=== PATIENT | female | born 1990 | race Caucasian/White ===

== ENCOUNTER 2023-02-21 11:22 | Outpatient (OUT) | payer BC, SELFPAY ==
[2023-02-22 06:08] LABS: HBsAg Screen Negative (Negative); HCV Ab Non Reactive (Non Reactive); HIV Ab/p24 Ag Screen Non Reactive (Non Reactive); Hep A Ab, IgM Negative (Negative); Hep B Core Ab, IgM Negative (Negative)
[2023-02-22 11:09] LABS: Rapid Plasma Reagin, Quant Non Reactive titer (NonRea<1:1)
== END 2023-02-21 11:23 | disposition home or self-care (01) ==
LOC: LAB 11:28
PROVIDERS: PCP Internal Medicine; Visit Provider Obstetrics & Gynecology
DX: Z01.42 Encounter for cervical smear to confirm findings of recent normal smear following initial abnormal smear (principal); R87.612 Low grade squamous intraepithelial lesion on cytologic smear of cervix (LGSIL); N94.9 Unspecified condition associated with female genital organs and menstrual cycle; R10.2 Pelvic and perineal pain; B00.9 Herpesviral infection, unspecified
CPT/HCPCS: 36415; 80074; 86592; 87389; 87624; G0145

== ENCOUNTER 2023-02-21 20:46 | Outpatient (REF) | payer BC, SELFPAY ==
[2023-02-25 16:11] LABS: Age Gdln ACOG Testing Note (.); HPV Aptima Positive (Negative); IGP, Aptima HPV, rfx 16/18,45 Note (.)
== END 2023-02-21 20:47 | disposition home or self-care (01) ==
LOC: LAB 20:46
PROVIDERS: PCP Internal Medicine; Visit Provider Obstetrics & Gynecology
DX: Z01.42 Encounter for cervical smear to confirm findings of recent normal smear following initial abnormal smear (principal); R87.612 Low grade squamous intraepithelial lesion on cytologic smear of cervix (LGSIL)
CPT/HCPCS: 87624; G0145

== ENCOUNTER 2023-11-22 18:55 | Outpatient (REF) | payer OTHER, SELFPAY ==
--- OUTSIDE RECORDS SUMMARY | 2023-11-22 19:00 | XMS_ITS | CCD ---
Author Organization [facility] Care Team Providers Care Trommel Tender Name Role Phone REQUEST, DR NONE LISTED Primary Care Unavaila ble LISA ., DR BRIONES Attending Unavailable LISA ., DR BRIONES Consulting Unavailable LISA ., DR BRIONES Admitting Unavailable ANALI GONZALEZ Attending Unavailable RAKESH SHEPHERD Primary Care Unavailabl e Problems Problem Classification Problem Date Documented Da te Episodic/Chronic Fever of unknown origin (1 source) Fever Onset: 06-15-2023 Episodic Influenza (1 source) Influenza due to other identified influenza virus with other respiratory manifestations; Translations: [Influenza due to other identified influenza virus with other respiratory manifestations] Onset: 06-15-2023 Episodic Other ear and sense organ disorders (1 source) Unspecified acute noninfective otitis externa, bilateral; Translations: [Unspecified acute noninfective otitis externa, bilateral] Onset: 06-15-2023 Episodic Other screening for suspected conditions (not mental disorders or infectious disease) (4 sources) Encounter for screening for malignant neoplasm of cervix; Translations: [ENC SCREENING MALIG NEOPLASM CERV] Onset: 07-21-2022 Episodic Unclassified (1 source) Cold Like Symptoms Onset: 06-15-2023 Unclassified (1 source) Earache; Fever; Vomiting Onset: 06-15-2023 Results Test Name Value Interpretation Reference Range Facility SARS/FLU A+B/RSV by NAAT/Mol ecularon 06-15-2023 SARS/FLU A+B/RSV by NAAT/Molecular FLU A PCR Positive (qualifier value) FLU B PCR Negative (qualifier value) RSV by PCR Negative (qualifier value) SARS CoV 2 Not detected (qualifier value) NOTE The Xpert Xpress SARS-CoV-2/Flu/RSV Plus test is a rapid, multiplexed real-time RT-PCR test intended for the simultaneous qualitative detection and differentiation of SARS-CoV-2, influenza A, influenza B and respiratory syncytial virus (RSV) viral RNA from individuals suspected of respiratory viral infection consistent with COVID-19 by their healthcare provider. This test has not been validated in asymptomatic patients. The Xpert Xpress SARS-CoV-2 test is intended for use by qualified and trained operators who are performing tests using either [employer] or [employer] systems and is limited to laboratories that meet the CLIA requirements to perform high and moderate complexity tests. The Xpert Xpress SARS-CoV-2/Flu/RSV Plus is only for use under the Food and Drug Administration's Emergency Use Authorization. Results are for the simultaneous detection and differentiation of SARS-CoV-2, influenza A, influenza B and RSV nucleic acids in clinical specimens. SARS-CoV-2, influenza A, influenza B and RSV RNA identified by this test are generally detectable in upper respiratory samples during the acute phase of infection. Positive results are indicative of the presence of the identified virus, but do not rule out bacterial infection or co-infection with other pathogens not detected by this test. Clinical correlation with patient history and other diagnostic information is necessary to determine patient infection status. The agent detected may not be the definite cause of disease. Negative results do not preclude SARS-CoV-2, influenza A, influenza B and RSV infection and should not be used as the sole basis for treatment or other patient management decisions. Negative results must be combined with clinical observations, patient history and epidemiological information. An Invalid result may occur with specimen-associated inhibition unable to be resolved with specimen repeat. Fact Sheet for Healthcare Providers: https://www.fda.gov/me brett/617506/download Fact Sheet for Patients: https://www.fda.gov/me brett/948919/download Normal [facility] Comment on above: Performed By: #### C OVFLR #### [facility] ([id number]) [address] [place] [address], [place] [address] PAP ACOG PANEL 2: 30 to 65on 07-29-2022 . . Normal [facility] Comment on above: Result Comment: Perf ormed at: WB Performed By: #### [id number] #### [facility] [address] [place] [address] Dr. Earlene Damian Age Gdln ACOG Testing 30-65 [facility] Comment on above: Performed By: #### [id number] #### [facility] [address] [address] [address] Earlene Damian DIAGNOSIS: Comment Abnormal [facility] Comment on above: Result Comment: EPIT HELIAL CELL ABNORMALITY. LOW GRADE SQUAMOUS INTRAEPITHELIAL LESION (LSIL). Performed at: WB Performed By: #### [id number] #### [facility] [address] [address] [address] Earlene Damian Electronically signed by: Comment Normal [facility] Comment on above: Result Comment: Eloina Armstrong MD, Pathologist Performed at: WB Performed By: #### [id number] #### [facility] [address] [address] [address] Earlene Damian HPV Aptima Positive Abnormal Negative [facility] Comment on above: Result Comment: This nucleic acid amplification test detects fourteen high-risk HPV types (16,18,31,33,35,39,45,51,52,56,58,59,66,68) without differentiation. Performed at: =G Performed By: #### [id number] #### [facility] [address] [place] [address] Dr. Earlene Damian HPV Genotype Reflex Comment Normal [facility] Comment on above: Result Comment: Crit eria not met, HPV Genotype not performed. Performed at: WB Performed By: #### [id number] #### [facility] [address] [address] [address] Earlene Damian Methodology: Comment Normal [facility] Comment on above: Result Comment: This liquid based ThinPrep(R) pap test was screened with the use of an image guided system. Performed at: WB Performed By: #### [id number] #### [facility] [address] [address] [address] Earlene Damian Note: Comment Normal [facility] Comment on above: Result Comment: The Pap smear is a screening test designed to aid in the detection of premalignant and malignant conditions of the uterine cervix. It is not a diagnostic procedure and should not be used as the sole means of detecting cervical cancer. Both false-positive and false-negative reports do occur. . Performed at: WB Performed By: #### [id number] #### [facility] [address] [address] [address] Earlene Damian Pathologist Provided ICD10 Comment Normal [facility] Comment on above: Result Comment: [id number] Performed at: WB Performed By: #### [id number] #### [facility] [id number] Earlene Damian Performed by: Comment Normal [facility] Comment on above: Result Comment: Zach Fong Underwriting Director (ASCP) Performed at: WB Performed By: #### [id number] #### [facility] [address] [address] [address] Earlene Damian Recommendation: Comment Abnormal [facility] Comment on above: Result Comment: Sugg est follow up as clinically appropriate. Performed at: WB Performed By: #### [id number] #### [facility] [address] [address] [address] Earlene Damian Specimen adequacy: Comment Normal [facility] Comment on above: Result Comment: Sati sfactory for evaluation. Endocervical and/or squamous metaplastic cells (endocervical component) are present. Performed at: WB Performed By: #### [id number] #### [facility] [address] [address] [address] Earlene Damian Encounters Encounter Date Encounter Type Care Provider Facility Start: 06-15-2023 End: 06-15-2023 Emergency department patient visit RAKESH SHEPHERD [facility] Start: 02-21-2023 End: 02-21-2023 ambulatory ANALI GONZALEZ Not Available Start: 07-21-2022 End: 07-21-[address] NONE LISTED REQUEST Facility: Payers Date Payer Category Payer Unknown [id number] 1990 Unknown [id number] 1990 Unknown [id number] 1958 Unknown [id number] 1958 Unknown [id number] Private Health Insurance [id number] Summary Purpose Family History No Family History Records FoundNo Family History Records FoundNo Family History Records Found Advance Directives No Advanced Directives Records FoundNo Advanced Directives Records FoundNo Advanced Directives Records Found Additional Source Comments INFORMATION SOURCE (unrecogn ized section and content) DATE CREATED AUTHOR 08/25/2022 [facility] DATE CREATED AUTHOR AUTHOR'S ORGANIZ ATION 02/21/2023 [facility] EPIC DATE CREATED AUTHOR AUTHOR'S ORGANIZ ATION 06/16/2023 [facility] FOR RECORDS PERTAINING TO PATIENTS WHO ARE OR HAVE BEEN ENROLLED IN A CHEMICAL DEPENDENCY/SUBSTANCEABUSE PROGRAM, SOME INFORMATION MAY BE OMITTED. This clinical summary was aggregated from multiple sources. Caution should be exercised in using it in the provision of clinical care. This summary normalizes information from multiple sources, and as a consequence, information in this document may materially change the coding, format and clinical context of patient data. In addition, data may be omitted in some cases. CLINICAL DECISIONS SHOULD BE BASED ON THE PRIMARY CLINICAL RECORDS. [employer] provides no warranty or guarantee of the accuracy or completeness of information in this document.
== END 2023-11-22 18:56 | disposition home or self-care (01) ==
LOC: LAB 18:55
PROVIDERS: PCP Internal Medicine; Visit Provider Obstetrics & Gynecology
DX: Z01.419 Encounter for gynecological examination (general) (routine) without abnormal findings (principal)
CPT/HCPCS: 87624; 88175

== ENCOUNTER 2024-01-23 16:38 | Outpatient (OUT) | payer OTHER, SELFPAY ==
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
[2024-01-23 17:59] LABS: HCG Quantitative 1276 mIU/mL
== END 2024-01-23 16:39 | disposition home or self-care (01) ==
LOC: LAB 16:40
PROVIDERS: PCP Internal Medicine; Visit Provider Obstetrics & Gynecology
DX: N92.6 Irregular menstruation, unspecified (principal)
CPT/HCPCS: 36415; 84702

== ENCOUNTER 2024-01-25 16:39 | Outpatient (OUT) | payer OTHER, SELFPAY ==
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
[2024-01-25 17:52] LABS: HCG Quantitative 1395 mIU/mL
== END 2024-01-25 16:40 | disposition home or self-care (01) ==
PROVIDERS: PCP Internal Medicine; Visit Provider Obstetrics & Gynecology
DX: N92.6 Irregular menstruation, unspecified (principal)
CPT/HCPCS: 36415; 84702

== ENCOUNTER 2024-01-27 16:07 | Outpatient (OUT) | payer OTHER, SELFPAY ==
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
[2024-01-27 17:08] LABS: HCG Quantitative 1255 mIU/mL
== END 2024-01-27 16:08 | disposition home or self-care (01) ==
LOC: LAB 16:08
PROVIDERS: PCP Internal Medicine; Visit Provider Obstetrics & Gynecology
DX: N92.6 Irregular menstruation, unspecified (principal)
CPT/HCPCS: 36415; 84702

== ENCOUNTER 2024-02-02 13:33 | Outpatient (OUT) | payer OTHER, SELFPAY ==
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
[2024-02-02 14:41] LABS: HCG Quantitative 381 mIU/mL
== END 2024-02-02 13:34 | disposition home or self-care (01) ==
LOC: LAB 13:36
PROVIDERS: PCP Internal Medicine; Visit Provider Obstetrics & Gynecology
DX: N92.6 Irregular menstruation, unspecified (principal)
CPT/HCPCS: 36415; 84702

== ENCOUNTER 2024-02-22 13:17 | Outpatient (RCR) | payer SELFPAY ==
[2024-02-22 14:02] LABS: HCG Quantitative 6 mIU/mL
== END 2024-04-10 23:59 | disposition home or self-care (01) ==
LOC: LAB 13:17
PROVIDERS: PCP Internal Medicine; Visit Provider Obstetrics & Gynecology
DX: N92.6 Irregular menstruation, unspecified (principal)
CPT/HCPCS: 36415; 84702

== ENCOUNTER 2024-05-14 16:34 | Outpatient (RCR) | payer OTHER, SELFPAY ==
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
[2024-05-14 17:39] LABS: HCG Quantitative 15487 mIU/mL
== END 2024-06-08 16:58 | disposition home or self-care (01) ==
LOC: LAB 16:34
PROVIDERS: PCP Internal Medicine; Visit Provider Obstetrics & Gynecology
DX: N92.6 Irregular menstruation, unspecified (principal)
CPT/HCPCS: 36415; 84702

== ENCOUNTER 2024-05-30 21:59 | Outpatient (REF) | payer OTHER, SELFPAY ==
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
== END 2024-05-30 22:00 | disposition home or self-care (01) ==
LOC: LAB 21:59
PROVIDERS: PCP Internal Medicine; Visit Provider Obstetrics & Gynecology
DX: R87.612 Low grade squamous intraepithelial lesion on cytologic smear of cervix (LGSIL) (principal); R87.619 Unspecified abnormal cytological findings in specimens from cervix uteri
CPT/HCPCS: 87624; 88175

== ENCOUNTER 2024-05-31 11:35 | Outpatient (OUT) | payer OTHER, SELFPAY ==
--- NOTE | 2024-05-31 11:37 | US_ITS ---
The [address] [address] Patient Name: POOJA VALENCIA MRN: [id number] date: 1990 Sex: F Assigned Patient Location: US Current Patient Location: US Accession/Order Number: [id number] Exam Date: 05/31/2024 14:04 Report Date: 05/31/2024 14:09 At the request of: ANALI GONZALEZ DO Procedure: US OB transvaginal TRANSVAGINAL FIRST TRIMESTER OB ULTRASOUND CLINICAL DATA: Missed menses COMPARISON: none Transvaginal imaging was performed. A gestational sac is visualized within the uterus. There is a yolk sac and pole. The crown-rump length measurement of 2.0 cm correlates with an ultrasound age of 8 weeks 4 days. The estimated date of delivery is 01/06/2025. There is cardiac activity with heart rate of 175 bpm. The estimated cervical length is 5.1 cm. Both ovaries are visualized. The right measures 2.7 x 1.2 x 1.8 cm in size. The left ovary measures 4.5 x 2.8 x 2.7 cm. The left ovary contains a cyst measuring 2.9 x 2.2 x 2.2 cm in size. This may be the corpus luteum. There is documentation of ovarian blood flow. No free fluid is noted. US/US OB transvaginal IMPRESSION: SINGLE LIVE INTRAUTERINE GESTATION WITH ULTRASOUND AGE OF 8 WEEKS 4 DAYS. Impression dictated by: Mckenzie Alvarez M.D.05/31/2024 2:09 PM Dictation Location: [facility] Electronically authenticated by: [id number] Y Date: 05/31/2024 14:09
--- OUTSIDE RECORDS SUMMARY | 2024-05-31 11:51 | XMS_ITS | CCD ---
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 [facility] DATE CREATED AUTHOR AUTHOR'S ORGANIZ ATION 06/16/2023 [facility] DATE CREATED AUTHOR AUTHOR'S ORGANIZ ATION 11/24/2023 [facility] DATE CREATED AUTHOR AUTHOR'S ORGANIZ ATION 01/22/2024 [facility] Reason for Visit (unrecogniz ed section and [...] Care Teams (unrecognized sec tion and content) 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 [employer] [facility]. provides no warranty or guarantee of the accuracy or completeness of information in this document.
== END 2024-05-31 11:36 | disposition home or self-care (01) ==
LOC: US 11:35
PROVIDERS: PCP Internal Medicine; Visit Provider Obstetrics & Gynecology
DX: Z34.01 Encounter for supervision of normal first pregnancy, first trimester (principal); Z3A.08 8 weeks gestation of pregnancy; N92.6 Irregular menstruation, unspecified
CPT/HCPCS: 76817

== ENCOUNTER 2024-06-12 13:21 | Outpatient (OUT) | payer OTHER, SELFPAY ==
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
[2024-06-12 13:55] LABS: BOX Test Reference Lab UNITY; BOX Test Sent Out UNITY
[2024-06-12 13:56] LABS: Basophils Percent Auto 0.4 % (0.2-2.0); Eosinophils Absolute Auto 0.1 10^3/uL (0.0-0.7); Eosinophils Percent Auto 0.9 % (0.9-7.0); Hematocrit 34.1 % (36.0-48.0); Hemoglobin 11.9 g/dL (12.0-16.0); Immature Granulocytes Abs Auto 0.02 10^3/uL (0.00-0.03); Immature Granulocytes Pct Auto 0.2 % (0.0-0.5); Lymphocytes Percent Auto 24.4 % (20.5-60.0); Mean Corpuscular HGB Conc 34.9 g/dL (29.9-35.2); Mean Corpuscular Hemoglobin 32.1 pg (26.7-34.0); Mean Corpuscular Volume 91.9 fL (81.0-99.0); Mean Platelet Volume 10.4 fL (9.5-13.5); Monocytes Absolute Auto 0.7 10^3/uL (0.3-0.8); Monocytes Percent Auto 8.1 % (1.7-12.0); Neutrophils Absolute Auto 5.4 10^3/uL (1.4-6.5); Platelet Count 249 10^3/uL (150-450); Red Blood Count 3.71 10^6/uL (4.20-5.40); Red Cell Distribution Width 11.7 % (11.0-15.0); White Blood Count 8.2 10^3/uL (4.0-11.0)
[2024-06-12 14:12] LABS: Amphetamine Screen Urine NEGATIVE (NEGATIVE); Barbiturates Screen Urine NEGATIVE (NEGATIVE); Benzodiazepines Screen Urine NEGATIVE (NEGATIVE); Buprenorphine Screen Urine NEGATIVE (NEGATIVE); Cannabinoid Screen Urine NEGATIVE (NEGATIVE); Cocaine Screen Urine NEGATIVE (NEGATIVE); Methadone Screen Urine NEGATIVE (NEGATIVE); Methamphetamines Screen Urine NEGATIVE (NEGATIVE); Opiate Screen Urine NEGATIVE (NEGATIVE); Oxycodone Screen Urine NEGATIVE (NEGATIVE); Phencyclidine Screen Urine NEGATIVE (NEGATIVE); Tricyclic Antidepressant Urine NEGATIVE (NEGATIVE)
[2024-06-12 14:20] LABS: Estimated Average Glucose 103 mg/dL; Glycohemoglobin A1C 5.2 % (4.5-6.2)
[2024-06-13 06:08] LABS: HBsAg Screen Negative (Negative); HCV Ab Non Reactive (Non Reactive); HIV Ab/p24 Ag Screen Non Reactive (Non Reactive); Rubella Antibodies, IgG 1.51 index (Immune >0.99)
[2024-06-13 12:09] LABS: Rapid Plasma Reagin, Quant Non Reactive titer (NonRea<1:1)
== END 2024-06-12 13:22 | disposition home or self-care (01) ==
LOC: LAB 13:22
PROVIDERS: PCP Internal Medicine; Visit Provider Obstetrics & Gynecology
DX: Z32.01 Encounter for pregnancy test, result positive (principal); Z36.0 Encounter for antenatal screening for chromosomal anomalies; N92.6 Irregular menstruation, unspecified
CPT/HCPCS: 36415; 80307; 83036; 85025; 86592; 86762; 86803; 86850; 86900; 86901; 87086; 87340; 87389

== ENCOUNTER 2024-10-23 16:38 | Observation (INO) | payer OTHER, SELFPAY ==
[2024-10-23 17:08] VITALS: BP 111/59; PULSE 95; TEMP 36.6
[2024-10-23 18:04] LABS: Glucose Urine UA NEGATIVE (NEGATIVE)
[2024-10-23 18:24] LABS: Cast Seen? NONE SEEN #/LPF (NONE SEEN); Crystals Seen? None Seen #/HPF (None Seen); Urine Culture Indicated NO
--- NOTE | 2024-10-23 18:50 | US_ITS ---
[place] [id number] Patient Name: POOJA VALENCIA MRN: [id number] date: 1990 Sex: F Assigned Patient Location: [facility] Current Patient Location: [facility] Accession/Order Number: [id number] Exam Date: 10/23/2024 20:48 Report Date: 10/23/2024 20:53 At the request of: ANALI GONZALEZ DO Procedure: US OB cervical length US OB cervical length 10/23/2024 8:31 PM SIGNS AND SYMPTOMS: contractions COMPARISON: None. TECHNIQUE: Transabdominal and transvaginal pelvic ultrasound. FINDINGS: An early intrauterine is identified. The fetus has an estimated gestational age of 29 weeks and 2 days A heart rate is identified at 153 bpm. A a subjectively normal amount of amniotic fluid is present. There is no evidence for placenta previa or subchorionic hemorrhage. Pelvic survey reveals no gross abnormalities. The cervix measures 3.9 cm in length. The cervical os is closed. US/US OB cervical length IMPRESSION: Single live IUP with an estimated gestational age of 29 weeks and 2 days with a normal heart rate. The cervix measures 3.9 cm in length. The cervical os is closed. Impression dictated by: Choco Ruiz M.D. 10/23/2024 8:53 PM Dictation Location: [employer] Electronically authenticated by: [id number] Y Date: 10/23/2024 20:53
[2024-10-23 19:13] LABS: Hematocrit 29.9 % (36.0-48.0); Hemoglobin 10.2 g/dL (12.0-16.0); Immature Granulocytes Abs Auto 0.08 10^3/uL (0.00-0.03); Immature Granulocytes Pct Auto 0.5 % (0.0-0.5); Lymphocytes Absolute Auto 2.2 10^3/uL (1.2-3.8); Mean Corpuscular HGB Conc 34.1 g/dL (29.9-35.2); Mean Corpuscular Hemoglobin 31.7 pg (26.7-34.0); Mean Corpuscular Volume 92.9 fL (81.0-99.0); Platelet Count 271 10^3/uL (150-450); Red Blood Count 3.22 10^6/uL (4.20-5.40); White Blood Count 14.6 10^3/uL (4.0-11.0)
[2024-10-23 19:27] LABS: Alanine Aminotransferase 16 U/L (14-59); Albumin Globulin Ratio 0.5; Albumin Level 2.2 g/dL (3.4-5.0); Alkaline Phosphatase 81 U/L (46-116); Anion Gap 12.8; Aspartate Amino Transferase 26 U/L (15-37); Blood Urea Nitrogen 5.0 mg/dL (7.0-18.0); Calcium 8.5 mg/dL (8.5-10.1); Carbon Dioxide 22.5 mmol/L (21.0-32.0); Chloride 105 mmol/L (98-107); Estimated GFR (African America >60 (>=60 mL/min/1.73m^2); Estimated GFR (Non-African Ame >60 (>=60 mL/min/1.73m^2); Globulin 4.5 g/dL; Glucose 86 mg/dL (74-106); Potassium 4.3 mmol/L (3.5-5.1); Sodium 136 mmol/L (136-145); Total Protein 6.7 g/dL (6.4-8.2)
[2024-10-23] MEDS: 0.9 % SODIUM CHLORIDE 1,000 ML 250 ML IV (19:30)
== END 2024-10-23 21:25 | disposition home or self-care (01) ==
PROVIDERS: Admitting Provider Obstetrics & Gynecology; PCP Internal Medicine; Visit Provider Obstetrics & Gynecology
DX: O26.893 Other specified pregnancy related conditions, third trimester (principal); R10.9 Unspecified abdominal pain; Z3A.29 29 weeks gestation of pregnancy
CPT/HCPCS: 36415; 59025; 76817; 80053; 81001; 85025; G0378; G0379

== ENCOUNTER 2024-12-05 07:49 | Outpatient (OUT) | payer OTHER, SELFPAY ==
--- OUTSIDE RECORDS SUMMARY | 2024-01-16 06:45 | XMS_ITS ---
Author Organization [facility] Address [address] [place] [id number] Care Team Providers Care Shear Scrapman Name Role Phone Osmel Salima Unavailable [phone] REASON FOR VISIT Periodic Exam Medications Medication SIG (Take, Route, Frequency, Duration) Notes Start Date End Date Status ZyrTEC Active Chlorhexidine Gluconate 0.12 % 15 mL swish for 30 seconds, then spit. Do not swallow. Mouth/Throat Twice a day; Duration: 30 days 11/01/2023 Active Citalopram Hydrobromide 10 MG Oral; Duration: 30 Active Ibuprofen 800 MG 1 tablet with food o r milk as needed Orally every 8 hrs; Duration: 5 days 11/01/2023 Active Amoxicillin 875 MG 1 tablet Orally Twic e a day; Duration: 7 days 11/01/2023 Active Adipex-P Not-Taking Social History Sex Assigned At : Social History Observation Description Sex Assigned At Female Encounters Encounter Location Date Provider Diagnosis [facility] [address], [place] [id number] 01/16/2024 Salima Bolivar Plan Of Treatment No Information Progress Notes * Susy BETHDOB:[birth year] (33 yo F)Acc No.[id number]:01/16/2024 Patient: Susy VÁZQUEZ Provider: Laverne Bolivar DMD :1990 A ge:33 Y S ex:Female Date:01/16/2024 Address:[address], [id number] Subjective: * Chief Complaints: * 1 . Periodic Exam. * Medical History: * Medications: T donald GuillenyrTEC , Taking Citalopram Hydrobromide 10 MG Tablet Oral , Taking Chlorhexidine Gluconate 0.12 % Solution 15 mL swish for 30 seconds, then spit. Do not swallow. Mouth/Throat Twice a day , Taking Amoxicillin 875 MG Tablet 1 tablet Orally Twice a day , Taking Ibuprofen 800 MG Tablet 1 tablet with food or milk as needed Orally every 8 hrs , Not-Taking/PRN Adipex-P Objective: * Vitals: Assessment: Plan: * Treatment: * Billing Information: * Visit Code: * Procedure Codes: * Electronic signature of Simona Bolivar DMD on 12/05/2024 at 07:52 AM EDT Sign off status: Pending * Provider: Laverne Bolivar DMD Date: Generated for Radha nguyen/Lilli/Terra on: 0 12/05/2024 07:52 AM EDT
--- OUTSIDE RECORDS SUMMARY | 2024-12-05 07:52 | XMS_ITS | Encounter Summary ---
Author Organization [facility] Address [address] [place] [address] Care Team Providers Care Biomass Plant Technician Name Role Phone Kyleigh Kathleen MD Primary Care Provider [phone]- [phone] Encounter Details Date Type Department Care Team (Late st Contact Info) Description 06/12/2024 Abstract [facility] [address] [place] [address] Jordan Sales DO [address] [place] [address] Social History Tobacco Use Types Packs/Day Years Used Date Smoking Tobacco: Never Smokeless Tobacco: Never Alcohol Use Standard Drinks/Week Comments Never 0 (1 standard drink = 0.6 oz pur e alcohol) Estimated Date of Delivery Comme nts Yes 01/06/2025 Based on Ultraso und Sex and Gender Information Value Date Recorded Sex Assigned at Female 09/13/2022 11:35 AM EDT Legal Sex Female 11:47 PM EDT Gender Identity Female 09/13/2022 11:35 AM EDT Sexual Orientation Straight 09/13/2022 11 :35 AM EDT documented as of this encounter Plan of Treatment Upcoming Encounters Date Type Department Care Team (Late st Contact Info) Description 12/05/2024 10:00 AM EDT Ancillary Procedure [facility] [address] [place] [phone] 12/05/2024 11:00 AM EDT Routine [place] [address] Jordan Sales, [address] [place] [address] documented as of this encounter Goals Goal Patient Goal Type Associated Problems Recent Progress Patient-Stated? Author Reminders Care Plan OB Reminders No Open Scheduling, Background documented as of this encounter Visit Diagnoses Not on filedocumented in this encounter Additional Health Concerns Active Problems Noted Date Diagnosed Date OB Reminders 06/10/2024 documented as of this encounter Care Teams Biomass Plant Technician Relationship Specialty Start Date End Date Kyleigh Kathleen MD [address] [place] [phone] PCP - General Internal Medicine 02/21/23 documented as of this encounter
--- OUTSIDE RECORDS SUMMARY | 2024-12-05 07:52 | XMS_ITS | Encounter Summary ---
Author Organization [facility] Address [address] [place] [address] Care Team Providers Care Granite Cutter Name Role Phone Kyleigh Kathleen MD Primary Care Provider [phone]- [phone] Encounter Details Date Type Department Care Team (Late st Contact Info) Description 09/26/2024 Abstract [facility] [address] [place] [address] Jordan Sales DO [address] [place] [address] Social History Tobacco Use Types Packs/Day Years [...] Ancillary Procedure [facility] [address] [place] [phone] 12/05/2024 11:00 AM EDT Routine [place] [address] Jordan Sales, [address] [facility] [address] documented as of this encounter Goals Goal Patient Goal Type Associated Problems Recent Progress Patient-Stated? Author Reminders Care Plan OB Reminders No Open Scheduling, Background documented as of this encounter Visit Diagnoses Not on filedocumented in this encounter Additional Health Concerns Active Problems Noted Date Diagnosed Date OB Reminders 06/10/2024 documented as of this encounter Care Teams Granite Cutter Relationship Specialty Start Date End Date Kyleigh Kathleen MD [address] [place] [phone] PCP - General Internal Medicine 02/21/23 documented as of this encounter
--- OUTSIDE RECORDS SUMMARY | 2024-12-05 07:52 | XMS_ITS | Clinical Summary ---
Author Organization [facility] Address [address] [place] [address] Care Team Providers Care Co Teacher Name Role Phone Rakesh Shepherd MD Primary Care Provider [phone] Allergies No known active allergies Medications citalopram (CeleXA) 10 MG tablet Take 20 mg by mouth in the morning. Active citalopram (CeleXA) 10 MG tablet Take 20 mg by mouth in the morning. Active cetirizine-pseud oephedrine (ZyrTEC-D) 5-120 MG 12 hr tablet Take 1 tablet every 12 hours by oral route as directed for 30 days. Active metFORMIN XR (Glucophage-XR) 500 MG 24 hr tabletIndication s:Insulin resistance Take 1 tablet (500 mg) by mouth in the evening. Take with meals Do not crush, chew, or split. 30 tablet 11 4 Active citalopram (CeleXA) 20 MG tabletIndication s:Anxiety, generalized TAKE 1 TABLET BY MOUTH DAILY 90 tablet 6 4 Active citalopram (CeleXA) 10 MG tabletIndication s:Anxiety, generalized TAKE 1 TABLET BY MOUTH DAILY 90 tablet 6 4 Active omeprazole (PriLOSEC) [address] capsuleIndicatio ns:Gastroesophag eal Reflux Disease,Heartbur n Take 1 capsule (20 mg) by mouth in the morning. Take before meals. Do not crush or chew.. 30 capsule 3 5 Active Active Problems Problem Noted Date Diagnosed Date H/O premature delivery 10/17/2024 20 weeks gestation of ([facility]) 2024 LGSIL of cervix of undetermined significance Abnormal glandular Papanicolaou smear of cervix 05/30/2024 Estimated Date of Delivery Comme nts Yes 01/06/2025 Based on Ultraso und Encounters Date Type Department Care Team Description 11/20/2024 2:30 [place] [address] Milka Long PA Size of fetus inconsistent with dates in third trimester ([facility]) (Primary Dx); Third trimester ([facility]); 33 weeks gestation of ([facility]); H/O premature delivery; Vapes nicotine containing substance; Diabetes mellitus screening 11/20/2024 [place] [address] Milka Long PA 11/20/2024 Travel 11/06/2024 11:00 [place] [address] Anali Sales, Third trimester ([facility]); 31 weeks gestation of ([facility]) 11/06/2024 [place] [address] Anali Sales, 11/06/2024 Travel 10/23/2024 Clinisync Result Encounter [facility] External Department Unsolicited Anali Sales, 10/23/2024 Clinisync Result Encounter [facility]OMS External Department Unsolicited Anali Sales, 10/18/20[place] [address] Stephanie Joseph MA 10/17/2024 2:20 [place] [address] Anali Sales, DO Third trimester ([facility]); Screening examination for STI; 28 weeks gestation of ([facility]); H/O premature delivery 10/17/2024 External Result Encounter [facility]OM[facility] External Department Unsolicited Anali Sales, DO 10/17/2024 Bamboo flowsheet [facility] [address] [place] [address] Anali Sales, DO 10/17/2024 Travel 09/26/2024 Abstract [facility] [address] [facility] [place] [phone] Anali Sales, DO 09/21/2024 Telephone [facility] [place] [phone] Neeru Lopez LPN 09/20/2024 3:20 PM EDT Routine [facility] [place] [phone] Milka Long PA Second trimester ([facility]); 24 weeks gestation of ([facility]); Diabetes mellitus screening 09/20/2024 Bamboo flowsheet [facility] [address] [facility] [place] [phone] Milka Long PA 09/20/2024 Travel from Last 3 Months Social History Tobacco Use Types Packs/Day Years Used Date Smoking Tobacco: Never Smokeless Tobacco: Never Tobacco Cessation:Counseling Given: Not Answered Alcohol Use Standard Drinks/Week Comments Never 0 [...] Orientation Straight 09/13/2022 11 :35 AM EDT Last Filed Vital Signs Vital Sign Reading Time Taken Comments Blood Pressure 118/72 11/20/2024 2:47 PM EDT Pulse - - Temperature - - Respiratory Rate - - Oxygen Saturation - - Inhaled Oxygen Concentration - - Weight 88.5 kg (195 lb) 11/20/2024 2:47 PM EDT Height 154.9 cm (5' 1 ) 11/22/2023 2:46 PM EDT Body Mass Index 36.84 11/22/2023 2:46 PM EDT Plan of Treatment Upcoming Encounters Date Type Department Care Team (Late st Contact Info) Description 12/05/2024 10:00 AM EDT Ancillary Procedure [facility] [address] [place] [phone] 12/05/2024 11:00 AM EDT Routine [facility] [address] [place] [phone] Anali Sales, [address] [place] [address] Health Maintenance Due Date Last Done Comments HPV/Cotest 12/30/2021 Influenza Vaccine (#1) 2024 Cervical Cancer Screening 05/30/2027 Pap Smear 05/30/2027 05/30/2024, 11/22/2023, 02/09 Goals Goal Patient Goal Type Associated Problems Recent Progress Patient-Stated? Author Reminders Care Plan OB Reminders No Open Scheduling, Background Procedures Procedure Name Priority Date/Time Associated Diagnosis Comments POCT URINALYSIS DIPSTICK Routine 11/20/2024 2:57 PM EDT Third trimester ([facility]) POCT URINALYSIS DIPSTICK Routine 11/06/2024 11:50 AM EDT Third trimester ([facility]) US OB CERVICAL LENGTH 10/23/2024 8:53 PM EDT [facility] CMP (CMP) (FOR REMOTE [facility] USE) Routine 10/23/2024 7:04 PM EDT ALL CBC WITH AUTO DIFF Routine 10/23/2024 7:04 PM EDT TB[facility] URINE MICROSCOPIC ONLY Routine 10/23/2024 5:20 PM EDT TBH UA (CLEAN/CATCH) TAPER AND FLOATER/MICRO IF IND. Routine 10/23/2024 5:20 PM EDT RECURRENT VAGINITIS (HTRX) Routine 10/17/2024 3:54 PM EDT POCT URINALYSIS DIPSTICK Routine 10/17/2024 3:14 PM EDT Third trimester ([facility]) POCT URINALYSIS DIPSTICK Routine 09/20/2024 4:07 PM EDT Second trimester ([facility]) PAP SMEAR Routine 05/30/2024 12:00 AM EST from Last 3 Months or Most Recently Relevant to Health Maintenance Results * POCT urinalysis dipstick manually resulted (11/20/2024 2:57 PM EDT) Only the most recent of4 resultswithin the time period is included. Color, UA Yellow Clarity, UA Clear Glucose, UA Negative Negative - 2000(110) ++++ mg/dL Bilirubin, UA Negative Negative - 4(70) +++ mg/dL Ketones, UA Negative Negative - 160(16) ++++ mg/dL Spec Grav, UA 1.020 1 - 1.03 Blood, UA Negative Negative - 50 Fahad/mcL pH, UA 7.0 5 - 9 Protein, UA Negative Negative - 2000(20) ++++ mg/dL Urobilinogen, UA 1.0 0.2 - 12 mg/dL Leukocytes, UA Negative Negative - 500+++ Carlos/mcL Nitrite, UA Negative Negative - Positive Urine 11/20/2024 2:57 PM EDT us Milka FIELDS POINT OF CARE TEST ENTER/EDIT OR DERABLES Final Result * US OB CERVICAL LENGTH (10/23/2024 8:53 PM EDT) Anatomical Region Laterality Modality Other 10/23/2024 8:53 PM EDT Narrative 10/23/2024 8:[place] [address] Ultrasound Report Signed Patient: POOJA BETH MR#: [id number] : 1990 Acct:[id number] Age/Sex: 33 / F ADM Date: Loc: [facility] 254-[address]: Anali Sales D.O. Ordering Physician: Anali Sales D.O. Date of Service: 10/23/24 Procedure(s): US OB cervical length Accession Number(s): [id number] cc: Anali Sales D.O.; RAKESH SHEPHERD [place] [address] Patient Name: POOJA BETH MRN: [id number] date: 1990 Sex: F Assigned Patient Location: [facility] Current Patient Location: [facility] Accession/Order Number: [id number] Exam Date: 10/23/2024 20:48 Report Date: 10/23/2024 20:53 At the request of: ANALI SALES DO Procedure: US OB cervical length US OB cervical length 10/23/2024 8:31 PM SIGNS AND SYMPTOMS: contractions COMPARISON: None. TECHNIQUE: Transabdominal and transvaginal pelvic ultrasound. FINDINGS: An early intrauterine is identified. The fetus has an estimated gestational age of 29 weeks and 2 days A heart rate is identified at 153 bpm. A a subjectively normal amount of amniotic fluid is present. There is no evidence for placenta previa or subchorionic hemorrhage. Pelvic survey reveals no gross abnormalities. The cervix measures 3.9 cm in length. The cervical os is closed. US/US OB cervical length IMPRESSION: Single live IUP with an estimated gestational age of 29 weeks and 2 days with a normal heart rate. The cervix measures 3.9 cm in length. The cervical os is closed. Impression dictated by: Choco Ruiz M.D. 10/23/2024 8:53 PM Dictation Location: [place] [address] Electronically authenticated by: [id number] Y Date: 10/23/2024 20:53 Dictated By: Choco Ruiz M.D. Signed By: 10/23/242055 DD/ 52 TD/TT: Bench Worker Helper: Procedure Note Radiology, Radiologist, MD - 10/23/2024 [place] [address] Ultrasound Report Signed Patient: POOJA BETH LMR#: [id number] : 1990Acct:[id number] Age/Sex: 33 / FADM Date: Loc: [facility] 254-[address]: Anali Sales D.O. Ordering Physician: Anali Sales D.O. Date of Service: 10/23/24 Procedure(s): US OB cervical length Accession Number(s): [id number] cc: Anali Sales D.O.; RAKESH SHEPHERD [place] [address] Patient Name: POOJA BETH MRN: [id number] date: 1990 Sex: F Assigned Patient Location: [facility] Current Patient Location: [facility] Accession/Order Number: [id number] Exam Date: 10/23/2024 20:48 Report Date: 10/23/2024 20:53 At the request of: ANALI SALES DO Procedure: US OB cervical length US OB cervical length 10/23/2024 8:31 PM SIGNS AND SYMPTOMS: contractions COMPARISON: None. TECHNIQUE: Transabdominal and transvaginal pelvic ultrasound. FINDINGS: An early intrauterine is identified. The fetus has an estimated gestational age of 29 weeks and 2 days A heart rate is identified at 153bpm. A a subjectively normal amount of amniotic fluid is present. There is no evidence for placenta previa or subchorionic hemorrhage. Pelvic survey reveals no gross abnormalities. The cervix measures 3.9 cmin length. The cervical os is closed. US/US OB cervical length IMPRESSION: Single live IUP with an estimated gestational age of 29 weeks and 2 dayswith a normal heart rate. The cervix measures 3.9 cm in length. The cervical os is closed. Impression dictated by: Choco Ruiz M.D. 10/23/2024 8:53 PM Dictation Location: [place] [address] Electronically authenticated by: [id number] Y Date: 0:53 Dictated By: Choco Ruiz M.D. Signed By:10/23/242055 DD/ 52 TD/TT: Bench Worker Helper: us Anali Mónica DO [facility] IMAG[facility] Final Result * (ABNORMAL) [facility] CMP (CMP) (FOR REMOTE [facility] USE) (10/23/2024 7:04 PM EDT) SODIUM 136 136 - 145 mmol/L TBH POTASSIUM 4.3 3.5 - 5.1 mmol/L TBH CHLORIDE 105 98 - 107 mmol/L TBH CARBON DIOXIDE 22.5 21.0 - 32.0 mmol/L TBH ANION GAP 12.8 TBH GLUCOSE 86 74 - 106 mg/dL TBH BLOOD UREA NITROGEN 5.0(L) 7.0 - 18.0 mg/dL TBH CREATININE 0.43(L) 0.55 - 1.02 mg/dL TBH TBH EGFR-AF BOTSWANAN >60 >=60 mL/min/1. 73m 2 TBH TBH EGFR-NON AF BOTSWANAN >60 >=60 mL/min/1. 73m 2 TBH BUN CREATININE RATIO 11.6 TBH CALCIUM 8.5 8.5 - 10.1 mg/dL TBH BILIRUBIN TOTAL 0.4 0.2 - 1.0 mg/dL TBH ASPARTATE AMINO TRANSFERASE 26 15 - 37 U/L TBH ALANINE AMINOTRANSFERASE 16 14 - 59 U/L TBH ALKALINE PHOSPHATASE 81 46 - 116 U/L TBH TOTAL PROTEIN 6.7 6.4 - 8.2 g/dL TBH ALBUMIN LEVEL 2.2(L) 3.4 - 5.0 g/dL TBH GLOBULIN 4.5 g/dL TBH ALBUMIN GLOBULIN RATIO 0.5 TBH 10/23/2024 7:04 PM EDT 10/23/2024 7:08 PM EDT Narrative [facility] - 10/23/2024 7:28 PM EDT Anali Sales DO [facility] Final Result [facility] TB * (ABNORMAL) ALL CBC WITH AUTO DIFF (10/23/2024 7:04 PM EDT) TBH WBC 14.6(H) 4.0 - 11.0 10 3/uL TBH TBH RBC 3.22(L) 4.20 - 5.40 10 6/uL TBH TBH HGB 10.2(L) 12.0 - 16.0 g/dL TBH TBH HCT 29.9(L) 36.0 - 48.0 % TBH TBH MCV 92.9 81.0 - 99.0 fL TBH TBH MCH 31.7 26.7 - 34.0 pg TBH TBH MCHC 34.1 29.9 - 35.2 g/dL TBH TBH RDW 12.5 11.0 - 15.0 % TBH TBH PLT 271 150 - 450 10 3/uL TBH TBH MPV 9.6 9.5 - 13.5 fL TBH NEUTROPHILS PERCENT AUTO 76.6(H) 43.0 - 75.0 % TBH LYMPHOCYTES PERCENT AUTO 15.1(L) 20.5 - 60.0 % TBH MONOCYTES PERCENT AUTO 7.3 1.7 - 12.0 % TBH TBH EO % 0.3(L) 0.9 - 7.0 % TBH BASOPHILS PERCENT AUTO 0.2 0.2 - 2.0 % TBH IMMATURE GRANULOCYTES PCT AUTO 0.5 0.0 - 0.5 % TBH NEUTROPHILS ABSOLUTE AUTO 11.1(H) 1.4 - 6.5 10 3/uL TBH LYMPHOCYTES ABSOLUTE AUTO 2.2 1.2 - 3.8 10 3/uL TBH MONOCYTES ABSOLUTE AUTO 1.1(H) 0.3 - 0.8 10 3/uL TBH TBH EO # 0.1 0.0 - 0.7 10 3/uL TBH BASOPHILS ABSOLUTE AUTO 0.0 0.0 - 0.1 10 3/uL TBH IMMATURE GRANULOCYTES ABS AUTO 0.08(H) 0.00 - 0.03 10 3/uL TBH 10/23/2024 7:04 PM EDT 10/23/2024 7:08 PM EDT Narrative [facility] - 10/23/2024 7:15 PM EDT Anali Mónica DO [facility] Final Result Performing Organization Address [facility] de Phone Number [facility] TBH * (ABNORMAL) TBH URINE MICROSCOPIC ONLY (10/23/2024 5:20 PM EDT) TBH WBC 0-2(A) NONE SEEN #/HPF TBH TBH RBC 0-2 0 - 2 #/HPF TBH BACTERIA URINE TRACE(A) NONE SEEN #/HPF TBH MUCUS URINE TRACE(A) NONE SEEN TBH SQUAMOUS EPITHELIAL CELL URINE MODERATE(A ) NONE/RARE #/LPF TBH CRYSTALS SEEN? None Seen None Seen #/HPF TBH CAST SEEN? NONE SEEN NONE SEEN #/LPF TBH URINE CULTURE INDICATED NO TBH 10/23/2024 5:20 PM EDT 10/23/2024 6:01 PM EDT Narrative [facility] - 10/23/2024 6:25 PM EDT Anali Mónica DO [facility]IN[facility] Final Result Performing Organization Address [facility] de Phone Number CLINISYNH TBH * (ABNORMAL) TBH UA (CLEAN/CATCH) TAPER AND FLOATER/MICRO IF IND. (10/23/2024 5:20 PM EDT) COLOR URINE LT. YELLOW YELLOW TBH CLARITY URINE CLEAR CLEAR TBH SPECIFIC GRAVITY URINE 1.015 1.005 - 1.025 TBH PH URINE 7.5 5.0 - 9.0 TBH PROTEIN URINE NEGATIVE NEG/TRACE mg/dL TBH GLUCOSE URINE UA NEGATIVE NEGATIVE mg/dL TBH BILIRUBIN URINE NEGATIVE NEGATIVE TBH KETONES URINE 15(A) NEGATIVE mg/dL TBH BLOOD URINE NEGATIVE NEGATIVE TBH NITRITE URINE NEGATIVE NEGATIVE TBH UROBILINOGEN URINE 0.2 0.2 - 1.0 EU/dL TBH LEUKOCYTE ESTERASE URINE TRACE(A) NEGATIVE TBH URINE MICROSCOPIC INDICATED YES TBH 10/23/2024 5:20 PM EDT 10/23/2024 6:01 PM EDT Narrative MARY - 10/23/2024 6:25 PM EDT Anali Mónica DO CLIN[facility] Final Result [facility] TB * (ABNORMAL) RECURRENT VAGINITIS (HTRX) (10/17/2024 3:54 PM EDT) [facility] ATOPOBIUM VAGINAE 18.848(A) 19.961 - 24.689 ppm 10/18/2024 6:17 AM EDT [facility] ATOPOBIUM VAGINAE Detected(A) 19.961 - 24.689 ppm 10/18/2024 6:17 AM EDT [facility] BVAB 2,3 (BACTERIAL VAGINOSIS ASSOCIATED BACTERIA 2, 3); MOBILUNCUS SPP 11.617(A) 19.961 - 24.689 ppm 10/18/2024 6:17 AM EDT [facility] BVAB 2,3 (BACTERIAL VAGINOSIS ASSOCIATED BACTERIA 2, 3); MOBILUNCUS SPP Detected(A) 19.961 - 24.689 ppm 10/18/2024 6:17 AM EDT [facility] SABRINA ALBICANS, PARAPSILOSIS, TROPICALIS 0 19.961 - 30.770 ppm 10/18/2024 6:17 AM EDT [facility] SABRINA ALBICANS, PARAPSILOSIS, TROPICALIS Not Detected 19.961 - 30.770 ppm 10/18/2024 6:17 AM EDT [facility] SABRINA GLABRATA 0 23.000 - 32.138 ppm 10/18/2024 6:17 AM EDT [facility] SABRINA GLABRATA Not Detected 23.000 - 32.138 ppm 10/18/2024 6:17 AM EDT [facility] SABRINA KRUSEI 0 23.000 - 32.271 ppm 10/18/2024 6:17 AM EDT [facility] SABRINA KRUSEI Not Detected 23.000 - 32.271 ppm 10/18/2024 6:17 AM EDT [facility] CHLAMYDIA TRACHOMATIS 0 23.000 - 31.467 ppm 10/18/2024 6:17 AM EDT [facility] CHLAMYDIA TRACHOMATIS Not Detected 23.000 - 31.467 ppm 10/18/2024 6:17 AM EDT [facility] GARDNERELLA VAGINALIS 18.3560(A) 19.961 - 24.689 ppm 10/18/2024 6:17 AM EDT [facility] GARDNERELLA VAGINALIS Detected(A) 19.961 - 24.689 ppm 10/18/2024 6:17 AM EDT [facility] MEGASPHAERA (TYPES 1, 2) 0 19.961 - 24.689 ppm 10/18/2024 6:17 AM EDT [facility] MEGASPHAERA (TYPES 1, 2) Not Detected 19.961 - 24.689 ppm 10/18/2024 6:17 AM EDT [facility] NEISSERIA GONORRHOEAE 0 23.000 - 32.117 ppm 10/18/2024 6:17 AM EDT [facility] NEISSERIA GONORRHOEAE Not Detected 23.000 - 32.117 ppm 10/18/2024 6:17 AM EDT [facility] TRICHOMONAS VAGINALIS 0 23.000 - 32.119 ppm 10/18/2024 6:17 AM EDT [facility] TRICHOMONAS VAGINALIS Not Detected 23.000 - 32.119 ppm 10/18/2024 6:17 AM EDT [facility] MYCOPLASMA GENITALIUM 0 19.961 - 24.689 ppm 10/18/2024 6:17 AM EDT [facility] MYCOPLASMA GENITALIUM Not Detected 19.961 - 24.689 ppm 10/18/2024 6:17 AM EDT [facility] ERMB, C; MEFA 19.21(A) 23.000 - 27.611 ppm 10/18/2024 6:17 AM EDT [facility] ERMB, C; MEFA Detected(A) 23.000 - 27.611 ppm 10/18/2024 6:17 AM EDT [facility] TET B, TET M 17.573(A) 23.000 - 27.778 ppm 10/18/2024 6:17 AM EDT [facility] TET B, TET M Detected(A) 23.000 - 27.778 ppm 10/18/2024 6:17 AM EDT [facility] Tissue 10/17/2024 3:54 PM EDT 10/18/2024 1:42 AM EDT Anali Sales DO LAB BLOOD ORDERABLES Final [facility]ul t [facility] [address] [place] [address] * Pap Smear (05/30/2024 12:00 AM EST) Swab Cervical swab / Unknown Mónica Nurse [facility] LAB CYTOLOGY ORDERABLES Final Result EXTERNAL LAB from Last 3 Months or Most Recently Relevant to Health Maintenance Additional Health Concerns Active Problems Noted Date Diagnosed Date OB Reminders 06/10/2024 Insurance MEDICAID [place] Care Teams Co Teacher Relationship Specialty Start Date End Date Rakesh Shepherd MD [address] [place] [address] PCP - General Internal Medicine 02/21/23
--- OUTSIDE RECORDS SUMMARY | 2024-12-05 07:52 | XMS_ITS | Patient Health Record ---
Author Organization [facility] Address [address] [place], [place] [address] Care Team Providers Care Teacher Dancing Name Role Phone Salima Bolivar Unavailable [phone] Allergies No Known Allergies Reason For Referral No Information Medications Medication SIG (Take, Route, Frequency, Duration) Notes Start Date End Date Status ZyrTEC Active Adipex-P Not-Taking Chlorhexidine Gluconate 0.12 % 15 mL swish [...] a day; Duration: 7 days 11/01/2023 Active Social History Sex Assigned At : Social History Observation Description Sex Assigned At Female Problems Problem Type SNOMED Code ICD Code Onset Dates Problem Status W/U Status Risk Notes Problem Iron deficiency (68437164) Iron deficiency (E61.1) Active confirmed Problem Dysuria (13964122) Dysuria (R30.0) Active confi rmed Problem Venereal disease screening (619319408) Screening for STD (sexually transmitted disease) (Z11.3) Active confirmed Problem Exercises teaching, guidance, and counseling (749825091) Exercise counseling (Z71.82) Active confirmed Description:C OUNSELING, EXERCISE Problem Obesity complicating (649.10) (649.10) Active confirmed Problem screening (416418967) First trimester screening (Z36.9) Active confirmed Problem Second trimester (47846830) Second trimester (Z34.92) Active confirmed Problem Primigravida (930195997) , supervision of first, second trimester (Z34.02) Active confirmed Problem -related examination (999189485) Encounter for related examination (Z34.90) Active confirmed Comment:pt to follow up for OB intake., Problem Vaginal discharge (987016856) Vaginal discharge (N89.8) Active confirmed Problem Rh negative status during (O26.899) Active confirmed Comment:zachariah m at 28 weeks, Problem Group B streptococcal infection in (O99.820) Active confirmed Comment:sensi tive to ampicillin, resistant to clindamycin discussed risk of ascending infection with patient, if pt breaks her water to go to L+D michela, labor precautions given, Problem Headache in , antepartum (O26.899) Active confirmed Comment:pt has hx of migraines, had in first TM with all pregnancies, pt declines to try fioricet for now secondary to class C medication, to increase po hydration, caffeine intake, tylenol prn., Problem Gynecological examination normal (817882993070111) Well woman exam with routine gynecological exam (Z01.419) Active confirmed Comment:encou raged self breast exams on ocp, Problem contractions (661.93) (661.93) Active confirmed Comment:prete rm labor precautions given, Problem Back pain complicating (85757288) Back pain complicating (O26.899) Active confirmed Problem Vomiting of (65172733) Nausea/vomiting in (643.90) (643.90) Active confirmed Comment:resol jane, Problem complicated by obesity, third trimester (O99.213) Active confirmed Comment:Reema uriostegui visit completed, Problem Postcoital bleeding (51593046) PCB (post coital bleeding) (N93.0) Active confirmed Comment:not with every episode improve lubrication, try different sexual positions, Problem Constipation in in second trimester (O99.612) Active confirmed Comment:incre ase po hydration, fiber intake colace prn, Problem Hx of maternal fourth degree perineal laceration, currently (V23.49) (V23.49) Active confirmed Comment:this was per patient. Reviewed previous delivery records pt had a second degree laceration that was repaired., Problem Normal (00244189) SUPERVISION, OTHER NORMAL (V22.1) (V22.1) Active confirmed Problem Rh negative status during in third trimester, antepartum (O36.0130) Active confirmed Problem Dietary management surveillance (899775072) DIETARY SURVEILLANCE/CO UNSELING (V65.3) (V65.3) Active confirmed Problem Delivery normal (04471561) Status post normal vaginal delivery (650) Active confirmed Comment:pt has resumed intercourse without difficulty, , desries depo for contraception . EDS score 10/30, pt states feels sad, not really depressed, no episodes of crying for no reason, no suicidal/homi cidal ideations. Pt states that she thinks its secondary to fob not helping much with baby. Declines medication or counseling at this time. To notify us if symptoms worsen. has not had cycle yet. Preg test negative., Problem Obesity in , antepartum (O99.210) Active confirmed Comment:monit or weight gain early 1 hr gtt - pt has not done yet, Problem Normal in multigravida (finding) (309957537472986) Other normal , not first (Z34.80) Active confirmed Comment:GC/CC , genital CX - negative pap not indicated secondary to age. S: M c/o irregular contractions throughout the day, pt has history of PTL dilated to 4 cm, given medicine to stop labor, then had to be induced. Labor precautions given,Story:[age] y.o @ 37.4 wks by [place] and first trimester US ( CRL 3.2 cm~10.1wks on 05/10/2012). Final JACOB by [place] 12/03/2012 POB: FTSVD @ 39 wks , induction of labor. Male 6ob99es. 2008 , [place]. Current - PGYN: denies PMH : Obesity PSH : denies Meds: PNV NKDA Sochx: denies x 3., Problem Supervision of normal intrauterine in multigravida (Z34.90) Active confirmed Comment:Reema uriostegui visit done. Patient yet to get quad screen done. Anatomy u/s ordered. Kick count advised., Problem Irregular menstruation (83995490) Menstrual irregularity (N92.6) Active confirmed Comment:pt states since started depo, has been on depo for 5 months, pt to continue depo for now and see if regulates out pt also concerned about weight gain, to diet and exercise, Problem Abdominal pain (27659079) Abdominal cramping (R10.9) Active confirmed Comment:cervi dagmar length > 35mm on office TVUS in office. on 09/05/2012 advised to go to L&D when pain happens again.,Descri ption:Abdomin al cramps Problem Rh negative, antepartum (O09.899) Active confirmed Problem Asymptomatic bacteriuria in (68675867) Asymptomatic bacteriuria in (O23.40) Active confirmed Problem Gastroesophageal reflux disease (537966379) Reflux (530.81) Active confirmed Comment: will try tums for now, Problem Anemia complicating (648.20) (648.20) Active confirmed Comment:fausto lim ferrous sulfate, Problem care (392592819) Supervision of normal (Z34.90) Active confirmed Comment:Elmera gila visit completed. Patient advised to go to pcp or ER for evaluation of sore throat since no test kits available in office, Problem complicated by obesity (O99.210) Active confirmed Comment:Elmera gila visit completed. Patient still has to do 1 hour glucose test, Problem Contraception care education (419977709) Family planning advice (Z30.09) Active confirmed Description: C ONTRACEPTIVE COUNSELING NEC Problem Rh negative, maternal (O26.899) Active confirmed Problem complicated by obesity, second trimester (O99.212) Active confirmed Plan Of Treatment Pending Test Test Name Order Date GLUCOSE TOLERANCE TEST (GTT) (24408) Insurance Providers Payer Name Payer Address Payer Phone Subscriber Number Group Number Insured Name Patient Relationship to Insured Coverage Start Date Coverage End Date [place] [address] [place] [id number] [place]man[place] Spouse - patient is the spouse of the insured 4 Medical (General) History Medical History History ICD Code No significant history of medical diseas es, ProblemStatus: Active, , Surgical History Surgery Date(Month/Year) No previous surgeries, ProblemStatus: Ac tive,
--- OUTSIDE RECORDS SUMMARY | 2024-12-05 07:52 | XMS_ITS | Encounter Summary ---
Author Organization [facility] Address [address] [place] [address] Care Team Providers Care Equipment Operator Wage Hand Name Role Phone Kyleigh Kathleen MD Primary Care Provider +1- [phone] Encounter Details Date Type Department Care Team (Late st Contact Info) Description 06/12/2024 Abstract [facility] [address] [address] [place] [address] Jordan Sales DO [address] [place] [address] Social History Tobacco Use Types Packs/Day Years [...] Ancillary Procedure [facility] [address] [place] [id number] 12/05/2024 11:00 AM EDT Routine [place] [address] Jordan Sales, [address] [facility] [place] [address] documented as of this encounter Goals Goal Patient Goal Type Associated Problems Recent Progress Patient-Stated? Author Reminders Care Plan OB Reminders No Open Scheduling, Background documented as of this encounter Visit Diagnoses Not on filedocumented in this encounter Additional Health Concerns Active Problems Noted Date Diagnosed Date OB Reminders 06/10/2024 documented as of this encounter Care Teams Equipment Operator Wage Hand Relationship Specialty Start Date End Date Kyleigh Kathleen MD [address] [place] [phone] PCP - General Internal Medicine 02/21/23 documented as of this encounter
--- OUTSIDE RECORDS SUMMARY | 2024-12-05 07:52 | XMS_ITS | Encounter Summary ---
Author Organization [facility] Address [address] [place] [address] Care Team Providers Care Solid Waste Engineer Name Role Phone Kyleigh Kathleen MD Primary Care Provider +1- [phone] Encounter Details Date Type Department Care Team (Late st Contact Info) Description 06/13/2024 Orders Only [facility] [address] [place] [address] Lorena Sylvester LPN [email or web address] [address] Social History Tobacco Use Types Packs/Day Years [...] 12/05/2024 10:00 AM EDT Ancillary Procedure [facility] [address] [address] [place] [address] 12/05/2024 11:00 AM EDT Routine [facility] R[facility]IG[facility] [address] [place] [address] Jordan Sales DO [address] [facility] [place] [address] documented as of this encounter Goals Goal Patient Goal Type Associated Problems Recent Progress Patient-Stated? Author Reminders Care Plan OB Reminders No Open Scheduling, Background documented as of this encounter Procedures Procedure Name Priority Date/Time Associated Diagnosis Comments PAP SMEAR Routine 05/30/2024 12:00 AM EST documented in this encounter Results * Pap Smear (05/30/2024 12:00 AM EST) Swab Cervical swab / Unknown Mónica Nurse [facility] LAB CYTOLOGY ORDERABLES Final Result EXTERNAL LAB documented in this encounter Visit Diagnoses Not on filedocumented in this encounter Additional Health Concerns Active Problems Noted Date Diagnosed Date OB Reminders 06/10/2024 documented as of this encounter Care Teams Solid Waste Engineer Relationship Specialty Start Date End Date Kyleigh Kathleen MD [address] [place] [phone] PCP - General Internal Medicine 02/21/23 documented as of this encounter
--- OUTSIDE RECORDS SUMMARY | 2024-12-05 07:52 | XMS_ITS | Clinical Summary ---
Author Organization [facility] Address [address], [address] [place] [address] Care Team Providers Care Physical Therapist Aide Name Role Phone Unavailable Primary Care Provider Unavailabl e Allergies No known active allergies Medications No known medications Immunizations Immunization Administration Dates Next Due TDaP, ADACEL (age 10y-64y), BOOSTRIX (age 10y+), IM, 0.5mL 01/20/2024 Social History Tobacco Use Types Packs/Day Years Used Date Smoking Tobacco: Never Assessed AUDIT-C Answer Date Recorded Q1: How often do you have a drink containing alc ohol? 2-4 times a month 01/20/2024 Q2: How many drinks containi ng alcohol do you have on a typical day when you are drinking? 1 or 2 01/20/2024 Q3: How often do you have si x or more drinks on one occasion? Never 01/20/2024 Interpersonal Safety Domain Source: IP Abuse Scr eening Answer Date Recorded Physical abuse Denies 01/20/2024 Verbal abuse Denies 01/20/2024 Emotional abuse Denies 01/20/2024 Financial abuse Denies 01/20/2024 Sexual abuse Denies 01/20/2024 Comments Unknown Sex and Gender Information Value Date Recorded Sex Assigned at Not on file Legal Sex Female 9:12 AM EDT Gender Identity Not on file Sexual Orientation Not on file Last Filed Vital Signs Vital Sign Reading Time Taken Comments Blood Pressure 106/63 01/20/2024 11:30 AM EDT Pulse 63 01/20/2024 11:30 AM EDT Temperature 37.1 C (98.7 F) 01/20/2024 9:14 AM EDT Respiratory Rate 18 01/20/2024 9:14 AM EDT Oxygen Saturation 99% 01/20/2024 11:30 AM EDT Inhaled Oxygen Concentration - - Weight 81.6 kg (180 lb) 01/20/2024 9:14 AM EDT Height 154.9 cm (5' 1 ) 01/20/2024 9:14 AM EDT Body Mass Index 34.01 01/20/2024 9:14 AM EDT Plan of Treatment Health Maintenance Due Date Last Done Comments Depression Screen 2003 Varicella vaccine (1 of 2 - 13+ 2-dose series) 12/30/2004 HIV screen 12/30/2006 Hepatitis C screen 12/30/2009 Hepatitis B vaccine (1 of 3 - 19+ 3-dose series) 12/30/2010 Pap smear 12/30/2012 Cervical cancer screen 12/30/2021 HPV (without or with Pap) 12/30/2021 COVID-19 Vaccine (1 - 2023-2 5 season) 2023 Flu vaccine (#1) 11/09/2024 04/09/2013 DTaP/Tdap/Td vaccine (2 - Td or Tdap) 01/19/2034 01/20/2024 HPV vaccine (No Doses Required) Completed Hepatitis A vaccine Aged Out No longe r eligible based on patient's age to complete this topic Hib vaccine Aged Out No longer eligi ble based on patient's age to complete this topic Meningococcal (ACWY) vaccine Aged Out No longer eligible based on patient's age to complete this topic Meningococcal B vaccine Aged Out No l onger eligible based on patient's age to complete this topic Pneumococcal 0-49 years Vaccine Aged Out No longer eligible based on patient's age to complete this topic Polio vaccine Aged Out No longer elig ible based on patient's age to complete this topic
--- OUTSIDE RECORDS SUMMARY | 2024-12-05 07:52 | XMS_ITS ---
Author Organization [facility] Source Produ ction (ClinicalSummary Clone) Address Unknown Care Team Providers Care Glass Washer And Carrier Name Role Phone Unavailable Primary Care Physician Unavailab le Results * [UNITY] ANEUPLOIDY NIPT Performed by: [facility] Component Value Range Date Fraction 5.8% 06/19/2024 04 :46 pm UTC Sex Chromosome Aneuploidy NOT DETECTED 04:46 pm UTC Monosomy X LOW RISK <1 in 10,000 2024 04:46 pm UTC Trisomy 13 LOW RISK <1 in 10,000 2024 04:46 pm UTC Trisomy 18 LOW RISK <1 in 10,000 2024 04:46 pm UTC Trisomy 21 LOW RISK <1 in 10,000 2024 04:46 pm UTC Sex FEMALE 06/19/2024 04:4 6 pm UTC Gestation ROBB 06/20/19 04:46 pm UTC For detailed report, see PDF See PDF 06/19/2024 04:46 pm UTC 06/19/2024 04:4 6 pm UTC Social History Observation Value Start Date End Date
--- OUTSIDE RECORDS SUMMARY | 2024-12-05 07:53 | XMS_ITS | Encounter Summary ---
Author Organization [facility] Address [address] [place] [address] Care Team Providers Care Stock Associate Name Role Phone Kyleigh Kathleen MD Primary Care Provider +1- [phone] Encounter Details Date Type Department Care Team (Late Contact Info) Description 11/30/2023 Orders Only [facility] RODRIGUEZ [address] [place] [address] [place] [address] Frida Salvador [place] [address] [place] [address] Social History Tobacco Use Types Packs/Day Years Used Date Smoking Tobacco: Never Smokeless Tobacco: Never Alcohol Use Standard Drinks/Week Comments Never 0 (1 standard drink = 0.6 oz pur e alcohol) Comments No Sex and Gender Information Value Date Recorded [...] AM EDT Ancillary Procedure [facility] [address] [facility] [place] [address] 12/05/2024 11:00 AM EDT Routine [facility] RODRIGUEZ [address] [facility] [address] Jordan Sales DO [address] [place] [address] documented as of this encounter Procedures Procedure Name Priority Date/Time Associated Diagnosis Comments PAP SMEAR Routine 11/22/2023 12:00 AM EDT documented in this encounter Results * Pap Smear (11/22/2023 12:00 AM EDT) Swab Cervical swab / Unknown us Jordan Mónica DO LAB CYTOLOGY ORDERABLES Final Re sult EXTERNAL LAB documented in this encounter Visit Diagnoses Not on filedocumented in this encounter Care Teams Stock Associate Relationship Specialty Start Date End Date Kyleigh Kathleen MD [address] [place] [address] PCP - General Internal Medicine 02/21/23 documented as of this encounter
--- OUTSIDE RECORDS SUMMARY | 2024-12-05 07:53 | XMS_ITS ---
Author Organization [facility] Source Produ ction (ClinicalSummary Clone) Address Unknown Care Team Providers Care Ambulance Driver Name Role Phone Unavailable Primary Care Physician Unavailab le Results * [UNITY] ANEUPLOIDY NIPT Performed by: [facility] Component Value Range Date Fraction 5.8% 09/20/2024 08 :03 pm UTC Rh(D) NIPT RhD NOT DETECTED 09/20/2024 08:03 pm UTC Sex Chromosome Aneuploidy NOT DETECTED 08:03 pm UTC Monosomy X LOW RISK <1 in 10,000 2024 08:03 pm UTC Trisomy 13 LOW RISK <1 in 10,000 2024 08:03 pm UTC Trisomy 18 LOW RISK <1 in 10,000 2024 08:03 pm UTC Trisomy 21 LOW RISK <1 in 10,000 2024 08:03 pm UTC Sex FEMALE 09/20/2024 08:0 3 pm UTC Gestation ROBB 09/21/19 25 08:03 pm UTC This result reflects an amended result REVISED REPORT to include Rh(D) NIPT. 09/20/2024 08:03 pm UTC For detailed report, see PDF See PDF 09/20/2024 08:03 pm UTC 09/20/2024 08:0 3 pm UTC Social History Observation Value Start Date End Date
--- OUTSIDE RECORDS SUMMARY | 2024-12-05 07:53 | XMS_ITS | Encounter Summary ---
Author Organization [facility] Address [address] [place] [address] Care Team Providers Care Reproduction Specialist Name Role Phone Kyleigh Kathleen MD Primary Care Provider +1- [phone] Encounter Details Date Type Department Care Team (Late st Contact Info) Description 05/31/2024 Abstract [facility] [address] [place] [address] Jordan Sales DO [address] [place] [address] Social History Tobacco Use Types Packs/Day Years [...] Ancillary Procedure [facility] [address] [place] [phone] 12/05/2024 11:00 AM EDT [place] [address] Jordan Sales DO [address] [address] documented as of this encounter Visit Diagnoses Not on filedocumented in this encounter Care Teams Reproduction Specialist Relationship Specialty Start Date End Date Kyleigh Kathleen MD [address] [place] [phone] PCP - General Internal Medicine 02/21/23 documented as of this encounter
--- OUTSIDE RECORDS SUMMARY | 2024-12-05 07:53 | XMS_ITS | Encounter Summary ---
Author Organization [facility] Address [address] [place] [address] Care Team Providers Care Social Media Campaign Manager Name Role Phone Kyleigh Kathleen MD Primary Care Provider +1- [phone] Encounter Details Date Type Department Care Team (Late st Contact Info) Description 07/05/2024 Abstract [facility] [address] [place] [address] Jordan Sales DO [address] [place] [address] Social History Tobacco Use Types Packs/Day Years [...] 12/05/2024 10:00 AM EDT [place] [address] 12/05/2024 11:00 AM EDT Routine [place] [address] Jordan Sales, [address] [facility] [place] [address] documented as of this encounter Goals Goal Patient Goal Type Associated Problems Recent Progress Patient-Stated? Author Reminders Care Plan OB Reminders No Open Scheduling, Background documented as of this encounter Visit Diagnoses Not on filedocumented in this encounter Additional Health Concerns Active Problems Noted Date Diagnosed Date OB Reminders 06/10/2024 documented as of this encounter Care Teams Social Media Campaign Manager Relationship Specialty Start Date End Date Kyleigh Kathleen MD [address] [place] [phone] PCP - General Internal Medicine 02/21/23 documented as of this encounter
--- OUTSIDE RECORDS SUMMARY | 2024-12-05 07:53 | XMS_ITS | Encounter Summary ---
Author Organization [facility] Address [address] [place] [address] Care Team Providers Care Sample Dye Mixer Name Role Phone Kyleigh Kathleen MD Primary Care Provider +1- [phone] Encounter Details Date Type Department Care Team (Late st Contact Info) Description 05/31/2024 Abstract [facility] [address] [address] [place] [address] Jordan Sales DO [address] [place] [address] Social History Tobacco Use Types Packs/Day Years [...] Ancillary Procedure [facility] [address] [place] [address] 12/05/2024 11:00 AM EDT [place] [address] Jordan Sales DO [address] [facility] [place] [address] documented as of this encounter Visit Diagnoses Not on filedocumented in this encounter Care Teams Sample Dye Mixer Relationship Specialty Start Date End Date Kyleigh Kathleen MD [address] [place] [address] PCP - General Internal Medicine 02/21/23 documented as of this encounter
--- OUTSIDE RECORDS SUMMARY | 2024-12-05 07:53 | XMS_ITS | Clinical Summary ---
Author Organization [facility] Address [id number] [address] [place] [address] Care Team Providers Care Air Cargo Ground Crew Supervisor Name Role Phone Kyleigh Kathleen MD Primary Care Provider + Allergies No known active allergies Medications cetirizine (ZyrTEC) 10 mg tablet Take 10 mg by mouth daily. Active citalopram (CeleXA) 20 mg tablet Take 30 mg by mouth daily. Active levonorgestreL (MIRENA) 20 mcg/24 hours (5 yrs) 52 mg IUD 1 each by intrauterine route once. Active ondansetron ODT (ZOFRAN ODT) 4 mg disintegrating tablet Dissolve 1 tablet (4 mg total) on tongue every 8 (eight) hours as needed for nausea for up to 10 doses. 10 tablet 06/15/19 24 Active benzonatate (TESSALON PERLES) 100 mg capsule Take 1 capsule (100 mg total) by mouth every 8 (eight) hours. 21 capsule 06/15/19 24 Active ibuprofen (MOTRIN) 800 mg tablet Take 1 tablet (800 mg total) by mouth every 6 (six) hours as needed for pain. 30 tablet 06/15/19 24 Active Active Problems Problem Noted Date Diagnosed Date Intrauterine 06/03/2019 Immunizations Immunization Administration Dates Next Due Rho (D) Immune Globulin 06/04/2019 Social History Tobacco Use Types Packs/Day Years Used Date Smoking Tobacco: Former Smokeless Tobacco: Never Alcohol Use Standard Drinks/Week Comments Yes 0 (1 standard drink = 0.6 oz pur e alcohol) AUDIT-C Answer Date Recorded Frequency of Alcohol Consumption Never 06/02/2019 Average Number of Drinks Not on file 020 Frequency of Binge Drinking Not on file 05/13 Childcare Answer Date Recorded Childcare Unknown 09/20/2018 Employment Answer Date Recorded Employment Unknown 09/20/2018 Purpose - Life Answer Date Recorded Purpose and direction in life Unknown Comments No Sex and Gender Information Value Date Recorded Sex Assigned at Not on file Legal Sex Female 11:53 AM EDT Gender Identity Not on file Sexual Orientation Not on file Last Filed Vital Signs Vital Sign Reading Time Taken Comments Blood Pressure 109/63 06/15/2023 4:00 PM EST Pulse 104 06/15/2023 4:00 PM EST Temperature 37.7 C (99.9 F) 06/15/2023 4:00 PM EST Respiratory Rate 18 06/15/2023 4:00 PM EST Oxygen Saturation 100% 06/15/2023 4:00 PM EST Inhaled Oxygen Concentration - - Weight 72.6 kg (160 lb) 04/10/2021 1:26 PM EST Height 154.9 cm (5' 1 ) 04/10/2021 1:26 PM EST Body Mass Index 30.23 04/10/2021 1:26 PM EST Plan of Treatment Health Maintenance Due Date Last Done Comments Depression Screening 2003 Adult BMI Screening 12/30/2009 DTaP,Tdap and Td Vaccines (1 - Tdap) 12/30/2010 Pap Smear 12/30/2012 Tobacco Screening 06/14/2024 06/15/2023 Influenza Vaccine 12/10/2024 04/09/2013 Medical Devices Not on file Insurance [id number] Advance Directives * Full Code (Latest Code Status on File) Date Activated Date Inactivated Comments 06/02/2019 11:08 PM 06/05/2019 11:38 PM * Full Code Date Activated Date Inactivated Comments 06/02/2019 4:29 PM 06/02/2019 11:08 PM Care Teams Air Cargo Ground Crew Supervisor Relationship Specialty Start Date End Date Kyleigh Kathleen MD PCP - General Pediatrics 06/02/17
--- OUTSIDE RECORDS SUMMARY | 2024-12-05 07:53 | XMS_ITS | Encounter Summary ---
Author Organization [facility] Address [address] [place] [address] Care Team Providers Care Orchid Superintendent Name Role Phone Kyleigh Kathleen MD Primary Care Provider [phone]- [phone] Encounter Details Date Type Department Care Team (Late st Contact Info) Description 06/19/2024 Abstract [facility] [address] [place] [address] Jordan Sales DO [facility] [place] [address] Social History Tobacco Use Types Packs/Day Years [...] Ancillary Procedure [facility] [address] [place] [id number] 12/05/2024 11:00 AM EDT Routine [place] [address] Jordan Sales, [address] [facility] [place] [address] documented as of this encounter Goals Goal Patient Goal Type Associated Problems Recent Progress Patient-Stated? Author Reminders Care Plan OB Reminders No Open Scheduling, Background documented as of this encounter Visit Diagnoses Not on filedocumented in this encounter Additional Health Concerns Active Problems Noted Date Diagnosed Date OB Reminders 06/10/2024 documented as of this encounter Care Teams Orchid Superintendent Relationship Specialty Start Date End Date Kyleigh Kathleen MD [address] [place] [id number] PCP - General Internal Medicine 02/21/23 documented as of this encounter
--- OUTSIDE RECORDS SUMMARY | 2024-12-05 07:53 | XMS_ITS | Encounter Summary ---
Author Organization [facility] Address [address] [place] [address] Care Team Providers Care Form Maker Plaster Name Role Phone Kyleigh Kathleen MD Primary Care Provider [phone]- [phone] Encounter Details Date Type Department Care Team (Late st Contact Info) Description 05/31/2024 Abstract [facility] [address] [place] [address] Jordan Sales DO [address] [place] [address] Social History Tobacco Use Types Packs/Day Years [...] Ancillary Procedure [facility] [address] [place] [id number] 12/05/2024 11:00 AM EDT [place] [address] Jordan Sales DO [address] [facility] [place] [address] documented as of this encounter Visit Diagnoses Not on filedocumented in this encounter Care Teams Form Maker Plaster Relationship Specialty Start Date End Date Kyleigh Kathleen MD [address] [place] [id number] PCP - General Internal Medicine 02/21/23 documented as of this encounter
--- OUTSIDE RECORDS SUMMARY | 2024-12-05 08:04 | XMS_ITS | CCD ---
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 % 11.5 - 14.9 % [facility] Hematocrit (Bld) [Volume fraction] 35.4 % Low 36 - 46 % [facility] Hemoglobin (Bld) [Mass/Vol] 12.1 g/dL 12.0 - 16.0 g/dL [facility] Interpretation and review of laboratory results Abnormal [facility] Lymphocytes/100 WBC (Bld) 33 % 24 - 44 % [facility] Lymphocytes/100 WBC (Bld) 1.70 % [facility] MCH (RBC) [Entitic mass] 32.5 pg 26 - [address] [facility] MCHC (RBC) [Mass/Vol] 34.3 g/dL 31 - 37 g/dL B on [facility] MCV (RBC) [Entitic vol] 94.9 fL 80 - [address] [facility] Monocytes/100 WBC (Bld) 10 % High 1 - 7 % B on [facility] Monocytes/100 WBC (Bld) 0.50 % B on [facility] Neutrophils/100 WBC (Bld) 53 % 36 - 66 % [facility] Platelet mean volume (Bld) [Entitic vol] 8.1 fL 6.0 - 12.[address] [facility] Platelets (Bld) [#/Vol] 225 10*3/uL [facility] RBC (Bld) [#/Vol] 3.73 10*6/uL Low 4.0 - 5.2 m/uL [facility] Segmented neutrophils/100 WBC (Bld) 2.60 % [facility] WBC other (Bld) [#/Vol] 5.0 B on [facility] CBC with Diffon 01-20-2024 Abs. Basophil 0.00 k/uL Normal 0.0-0.2 [facility] Comment on above: Performed By: #### P T, CP, HCG, CDP #### [facility] [address] [place], [place] [id number] Office Machine Servicer: Nehemiah Ku DO Abs.Neutrophil (Seg) 2.60 k/uL Normal 1.3-9.1 [facility] Comment on above: Performed By: #### P T, CP, HCG, CDP #### [facility] [address] [place], [place] [id number] Office Machine Servicer: Nehemiah Ku DO Basophils/100 WBC (Bld) 0 % Normal 0-2 [facility] Comment on above: Performed By: #### P T, CP, HCG, CDP #### [facility] [place] [address] Office Machine Servicer: Nehemiah Ku DO Eosinophils (Bld) [#/Vol] 0.20 10*3/uL Normal 0.0-0.4 [facility] Comment on above: Performed By: #### P T, CP, HCG, CDP #### [facility] [place] [address] Office Machine Servicer: Nehemiah Ku DO Eosinophils/100 WBC (Bld) 4 % Normal 0-4 [facility] Comment on above: Performed By: #### P T, CP, HCG, CDP #### [facility] [address] [place], [place] [address] [place] [address] Office Machine Servicer: Nehemiah Ku DO Erythrocyte distribution width (RBC) [Ratio] 12.4 % Normal 11.5-14.9 [facility] Comment on above: Performed By: #### P T, CP, HCG, CDP #### [facility] [address] [place] [address] [employer] Machine Servicer: eNhemiah Ku DO Hematocrit (Bld) [Volume fraction] 35.4 % Low 36-46 [facility] Comment on above: Performed By: #### P T, CP, HCG, CDP #### [facility] [place] [address] Office Machine Servicer: Nehemiah Ku DO Hemoglobin (Bld) [Mass/Vol] 12.1 g/dL Normal 12.0-16.0 [facility] Comment on above: Performed By: #### P T, CP, HCG, CDP #### [facility] [place] [address] Office Machine Servicer: Nehemiah Ku DO Lymphocytes (Bld) [#/Vol] 1.70 10*3/uL Normal 1.0-4.8 [facility] Comment on above: Performed By: #### P T, CP, HCG, CDP #### [facility] [address] [place] [address] [employer] Machine Servicer: Nehemiah Ku DO Lymphocytes/100 WBC (Bld) 33 % Normal 24-44 [facility] Comment on above: Performed By: #### P T, CP, HCG, CDP #### [facility] [address] [place] [address] [employer] Machine Servicer: Nehemiah Ku DO MCH (RBC) [Entitic mass] 32.5 pg Normal 26-34 [facility] Comment on above: Performed By: #### P T, CP, HCG, CDP #### [facility] [address] [place] [address] [employer] Machine Servicer: Nehemiah Ku DO MCHC (RBC) [Mass/Vol] 34.3 g/dL Normal 31-37 [facility] Comment on above: Performed By: #### P T, CP, HCG, CDP #### [facility] [address] [place] [address] [employer] Machine Servicer: Nehemiah Ku DO MCV (RBC) [Entitic vol] 94.9 fL Normal 80-100 [facility] Comment on above: Performed By: #### P T, CP, HCG, CDP #### [facility] [address] [place] [address] [employer] Machine Servicer: Nehemiah Ku DO Monocytes (Bld) [#/Vol] 0.50 10*3/uL Normal 0.1-1.3 [facility] Comment on above: Performed By: #### P T, CP, HCG, CDP #### [facility] [address] [place] [address] [employer] Machine Servicer: Nehemiah Ku DO Monocytes/100 WBC (Bld) 10 % High 1-7 [facility] Comment on above: Performed By: #### P T, CP, HCG, CDP #### [facility] [address] [place] [address] Office Machine Servicer: Nehemiah Ku DO Neutrophil (Seg) 53 % Normal 36-66 [facility] Comment on above: Performed By: #### P T, CP, HCG, CDP #### [facility] [address] [place] [address] Office Machine Servicer: Nehemiah Ku DO Platelet mean volume (Bld) [Entitic vol] 8.1 fL Normal 6.0-12.0 [facility] Comment on above: Performed By: #### P T, CP, HCG, CDP #### [facility] [address] [facility] [place] [address] Office Machine Servicer: Nehemiah Ku DO Platelets (Bld) [#/Vol] 225 10*3/uL Normal 150-450 [facility] Comment on above: Performed By: #### P T, CP, HCG, CDP #### [facility] [address] [facility] [place] [address] Office Machine Servicer: Nehemiah Ku DO RBC (Bld) [#/Vol] 3.73 10*6/uL Low 4.0-5.2 [facility] Comment on above: Performed By: #### P T, CP, HCG, CDP #### [facility] [address] [facility] [place] [address] Office Machine Servicer: Nehemiah Ku DO WBC (Bld) [#/Vol] 5.0 10*3/uL Normal 3.5-11.0 [facility] Comment on above: Performed By: #### P T, CP, HCG, CDP #### [facility] [address] [place] [address] Office Machine Servicer: Nehemiah Ku, CT CERVICAL SPINE WO WING Ton 01-20-2024 CT CERVICAL SPINE WO CONTRAST [...] Trae Chavez MD 01/20/24 Final result Normal [facility] CT HEAD WO CONTRASTon 2023 CT [...] Trae Chavez MD 01/20/24 Final result Normal [facility] Comp Metabolic Profon 2023 Albumin [Mass/Vol] 3.8 g/dL Normal 3.5-5.2 [facility] Comment on above: Performed By: #### P T, CP, HCG, CDP #### [facility] [address] [place] [address] Office Machine Servicer: Nehemiah Ku DO Alkaline Phos 69 U/L Normal 35-104 [facility] Comment on above: Performed By: #### P T, CP, HCG, CDP #### [facility] [address] [place] [address] Office Machine Servicer: Nehemiah Ku DO ALT [Catalytic activity/Vol] 28 U/L Normal 10-35 [facility] Comment on above: Performed By: #### P T, CP, HCG, CDP #### [facility] [address] [facility] [place] [address] Office Machine Servicer: Nehemiah Ku DO Anion gap [Moles/Vol] 10 mmol/L Normal 9-16 [facility] Comment on above: Performed By: #### P T, CP, HCG, CDP #### [facility] [place] [address] Office Machine Servicer: Nehemiah Ku DO AST [Catalytic activity/Vol] 31 U/L Normal 10-35 [facility] Comment on above: Performed By: #### P T, CP, HCG, CDP #### [facility] [place] [address] Office Machine Servicer: Nehemiah Ku DO Bilirubin [Mass/Vol] 0.4 mg/dL Normal 0.0-1.2 [facility] Comment on above: Performed By: #### P T, CP, HCG, CDP #### [facility] [place] [address] Office Machine Servicer: Nehemiah Ku DO Calcium [Mass/Vol] 8.9 mg/dL Normal 8.6-10.4 [facility] Comment on above: Performed By: #### P T, CP, HCG, CDP #### [facility] [place] [address] Office Machine Servicer: Nehemiah Ku DO Chloride [Moles/Vol] 108 mmol/L High 98-107 [facility] Comment on above: Performed By: #### P T, CP, HCG, CDP #### [facility] [place] [address] Office Machine Servicer: Nehemiah Ku DO CO2 [Moles/Vol] 20 mmol/L Normal 20-31 [facility] Comment on above: Performed By: #### P T, CP, HCG, CDP #### [facility] [address] [facility] [place] [address] Office Machine Servicer: Nehemiah Ku DO Creatinine [Mass/Vol] 0.8 mg/dL Normal 0.7-1.2 [facility] Comment on above: Performed By: #### P T, CP, HCG, CDP #### [facility] [address] [place] [address]. [place] [address] Office Machine Servicer: Nehemiah Ku DO GFR/1.73 sq M.predicted among non-blacks MDRD (S/P/Bld) [Vol rate/Area] mL/min/{1.73_m2} Normal >60 [facility] Comment on above: Result Comment: These [...] #### P T, CP, HCG, CDP #### [facility] [address] [place] [address]. [place] [address] Office Machine Servicer: Nehemiah Ku DO Glucose [Mass/Vol] 91 mg/dL Normal 74-99 [facility] Comment on above: Performed By: #### P T, CP, HCG, CDP #### [facility] [address] [place] [address]. [place] [address] Office Machine Servicer: Nehemiah Ku DO Potassium [Moles/Vol] 3.8 mmol/L Normal 3.7-5.3 [facility] Comment on above: Result Comment: Spec imen hemolysis has exceeded the interference as defined by Dejuan. Value may be falsely increased. Suggest recollection if clinically indicated. Performed By: #### P T, CP, HCG, CDP #### [facility] [address] [place] [address]. [place] [address] Office Machine Servicer: Nehemiah Ku DO Protein [Mass/Vol] 6.9 g/dL Normal 6.6-8.7 [facility] Comment on above: Performed By: #### P T, CP, HCG, CDP #### [facility] [address] [place] [address] Office Machine Servicer: Nehemiah Ku DO Sodium [Moles/Vol] 138 mmol/L Normal 136-145 [facility] Comment on above: Performed By: #### P T, CP, HCG, CDP #### [facility] [address] [facility] [place] [address] Office Machine Servicer: Nehemiah Ku DO Urea nitrogen [Mass/Vol] 9 mg/dL Normal 6-20 [facility] Comment on above: Performed By: #### P T, CP, HCG, CDP #### [facility] [address] [facility] [place] [address] Office Machine Servicer: Nehemiah Ku DO Comprehensive Metabolic Pane [facility] 01-20-2024 Albumin [Mass/Vol] 3.8 g/dL 3.5 - 5.2 g/dL [facility] ALP [Catalytic activity/Vol] 69 U/L 35 - 104 U/L [facility] ALT [Catalytic activity/Vol] 28 U/L 10 - 35 U/L [facility] Anion gap [Moles/Vol] 10 mmol/L 9 - 16 mmol/L [facility] AST [Catalytic activity/Vol] 31 U/L 10 - 35 U/L [facility] Bilirubin [Mass/Vol] 0.4 mg/dL 0.0 - 1 .2 mg/dL [facility] Calcium [Mass/Vol] 8.9 mg/dL 8.6 - 10. 4 mg/dL [facility] Chloride [Moles/Vol] 108 mmol/L High 98 - 10 7 mmol/L [facility] CO2 [Moles/Vol] 20 mmol/L 20 - 31 mmol/L [facility] Creatinine [Mass/Vol] 0.8 mg/dL 0.7 - 1.2 mg/dL [facility] Est, Glom Edwart Rate - PINF [facility] Comment on above: These results are [...] [Mass/Vol] 91 mg/dL 74 - 99 mg/dL [facility] Interpretation and review of laboratory results Abnormal [facility] Potassium [Moles/Vol] 3.8 mmol/L 3.7 - 5.3 mmol/L [facility] Comment on above: Specimen hemolysis h as exceeded the interference as defined by Dejuan. Value may be falsely increased. Suggest recollection if clinically indicated. Protein [Mass/Vol] 6.9 g/dL 6.6 - 8.7 g/dL [facility] Sodium [Moles/Vol] 138 mmol/L 136 - 145 mmol/L [facility] Urea nitrogen [Mass/Vol] 9 mg/dL 6 - 20 mg/dL [facility] HCG Qualitative, Serumon HCG ( test) Ql Positive Abnormal NEGATIVE B [facility] Comment on above: If HCG results do no t concur with clinical observations, additional testing to confirm result is recommended. This test is not labeled for use as a tumor marker. Interpretation and review of laboratory results Abnormal [facility] HCG Screen, Bloodon 01-20-20 HCG Screen, Blood Positive Abnormal NEG [facility] Comment on above: Result Comment: If H CG results do not concur with clinical observations, additional testing to confirm result is recommended. This test is not labeled for use as a tumor marker. Performed By: #### P T, CP, HCG, CDP #### [facility] [address] [place] [address] Office Machine Servicer: Nehemiah Ku DO PTon 01-20-2024 INR Coag (PPP) [Relative time] 1.0 {INR} Normal [facility] Comment on above: Result Comment: Therapeutic Range: Moderate Anticoagulant Intensity: INR = 2.0-3.0 High Anticoagulant Intensity: INR = 2.5-3.5 Performed By: #### P T, CP, HCG, CDP #### [facility] [address] [facility] [place], [place] [id number] Office Machine Servicer: Nehemiah Ku DO PT Coag (PPP) [Time] 13.7 s Normal 11.8-14.6 [facility] Comment on above: Performed By: #### P T, CP, HCG, CDP #### [facility] [address] [facility] [place] [address] Office Machine Servicer: Nehemiah uK DO Protime-INRon 01-20-2024 INR Coag (PPP) [Relative time] 1.0 {INR} [facility] Comment on above: Therapeutic Range: Moderate Anticoagulant Intensity: INR = 2.0-3.0 High Anticoagulant Intensity: INR = 2.5-3.5 PT Coag (PPP) [Time] 13.7 s [facility] XR ELBOW RIGHT (MIN 3 [...] Trae Chavez MD 01/20/24 Final result Normal [facility] XR Elbow - right 3 Viewson 1 1. Mild soft tissue edema at the olecranon. 2. No acute fracture or dislocation. [facility] EXAMINATION: THREE XRAY VIEWS OF THE [...] Mild soft tissue swelling overlying the olecranon. [facility] Trae Chavez MD - 01/20/2024 EXAMINATION: [...] olecranon. 2. No acute fracture or dislocation. [facility] Radiology Study observation (narrative) [facility] IGP,APTIMA HPV,AGE GDLNon AGE GDLN ACOG TESTING Note . [facility] Comment on above: TESTS RESULT FLAG UN ITS REF RANGE LAB Clinician Provided Cytology Information Source.............Cervix;Endocervix No. of containers..01 ThinPrep Vial Age Lesly TANG Iris... 30-65 01 FLAG LEGEND: L-Low Normal,H-High Normal,LL-Alert Low,HH-Alert High <-Panic Low,>-Panic High,A-Abnormal,AA-Critical Abnormal Performed at: 01 =[address] [address] Rhina Armstrong MD, HPV APTIMA Positive Abnormal Negative [facility] Comment on above: This nucleic acid am plification test detects fourteen high- risk HPV types (16,18,31,33,35,39,45,51,52,56,58,59,66,68) without differentiation. Performed at: =[address] [id number] Office Machine Servicer: Rhina Armstrong MD, Phone: [phone] Performed at: [address] [id number] Office Machine Servicer: Rhina Armstrong MD, Phone: [phone] IGP, APTIMA HPV, RFX 16/18,45 Note Abnormal . [facility] Comment on above: TESTS RESULT FLAG UN ITS REF RANGE LAB DIAGNOSIS: [A] 02 EPITHELIAL CELL ABNORMALITY. LOW GRADE SQUAMOUS INTRAEPITHELIAL LESION (LSIL). Recommendation: [A] 02 Suggest follow up as clinically appropriate. Specimen adequacy: 02 Satisfactory for evaluation. Endocervical and/or squamous metaplastic cells (endocervical component) are present. Performed by: Salima Galloway, [employer] Operator (ASCP) Electronically si... Rhina Armstrong MD, Pathologist . 02 Pathologist [...] <-Panic Low,>-Panic High,A-Abnormal,AA-Critical Abnormal Performed at: [address] [address] Rhina Armstrong MD, Interpretation and review of [...] operators who are performing tests using either CultureMap or MesM[employer]ia[employer] systems and is limited to laboratories that [...] repeat. Fact Sheet for Healthcare Providers: https://www.fda.gov/ media/525974/downloa d Fact Sheet for Patients: https://www.fda.gov/ media/414285/downloa d [facility] Comment on above: Performed By: #### C OVFLR #### [facility] ([id number]) [address] [place] [address], [place] [address] PAP ACOG PANEL 2: 30 to 65on 07-29-2022 . . Normal [facility] Comment on above: Result Comment: Perf ormed at: WB Performed By: #### [id number] #### [facility] [address] [address] [address] Earlene Damian Age Gdln ACOG Testing 30-65 Normal [facility] Comment on above: Performed By: #### [id number] #### [facility] [address] [address] [address] Earlene Damian DIAGNOSIS: Comment Abnormal [facility] Comment on above: Result Comment: EPIT HELIAL CELL ABNORMALITY. LOW GRADE SQUAMOUS INTRAEPITHELIAL LESION (LSIL). Performed at: WB Performed By: #### [id number] #### [facility] [address] [address] [address] Earlene aDmian Electronically signed by: Comment Normal [facility] Comment on above: Result Comment: Eloina Armstrong MD, Pathologist Performed at: WB Performed By: #### [id number] #### [facility] [address] [place] [address] Dr. Earlene Damian HPV Aptima Positive Abnormal Negative [facility] Comment on above: Result Comment: This nucleic acid amplification test detects fourteen high-risk HPV types (16,18,31,33,35,39,45,51,52,56,58,59,66,68) without differentiation. Performed at: =G Performed By: #### [id number] #### [facility] [address] [place] [address] Dr. Earlene Damian HPV Genotype Reflex Comment Normal [facility] Comment on above: Result Comment: Crit eria not met, HPV Genotype not performed. Performed at: WB Performed By: #### [id number] #### [facility] [address] [place] [address] Dr. Earlene Damian Methodology: Comment Normal [facility] Comment on above: Result Comment: This liquid based ThinPrep(R) pap test was screened with the use of an image guided system. Performed at: WB Performed By: #### [id number] #### [facility] [address] [place] [address] Dr. Earlene Damian Note: Comment Normal [facility] Comment on above: Result Comment: The Pap smear is a screening test designed to aid in the detection of premalignant and malignant conditions of the uterine cervix. It is not a diagnostic procedure and should not be used as the sole means of detecting cervical cancer. Both false-positive and false-negative reports do occur. . Performed at: WB Performed By: #### [id number] #### [facility] [address] [address] [address] Earlene Damian Pathologist Provided ICD10 Comment Normal [facility] Comment on above: Result Comment: [id number] Performed at: WB Performed By: #### [id number] #### [facility] [address] [address] [address] Earlene Damian Performed by: Comment Normal [facility] Comment on above: Result Comment: Zach Fong [employer] Operator (ASCP) Performed at: WB Performed By: #### [id number] #### [facility] [address] [place] [address] Dr. Earlene Damian Recommendation: Comment Abnormal [facility] Comment on above: Result Comment: Sugg est follow up as clinically appropriate. Performed at: WB Performed By: [id number] #### [facility] [address] [address] [address] Earlene Damian Specimen adequacy: Comment Normal [facility] Comment on above: Result Comment: Sati sfactory for evaluation. Endocervical and/or squamous metaplastic cells (endocervical component) are present. Performed at: WB Performed By: #### [id number] #### [facility] [address] [place] [address] Dr. Earlene Damian Vital Signs Date Time Vital Sign Value Performing Clinician Facjonathan litkevan 11-20-2024 14:47-0400 Body mass index (BMI) [Ratio] 36.84 kg/m2 Milka FIELDS Work Phone: [facility] 11-20-2024 14:47-0400 Body weight 88.45 kg Milka FIELDS Work Phone: [facility] 11-20-2024 14:47-0400 Diastolic blood pressure 72 mm[Hg] Milka FIELDS Work Phone: [facility] 11-20-2024 14:47-0400 Systolic blood pressure 118 mm[Hg] Milka FIELDS Work Phone: [facility] 11-06-2024 11:46-0400 Body mass index (BMI) [Ratio] 37.7 kg/m2 Anali Ómnica DO Work Phone: [facility] 11-06-2024 11:46-0400 Body weight 90.49 kg Anali Mónica DO Work Phone: [facility] 11-06-2024 11:46-0400 Diastolic blood pressure 64 mm[Hg] Anali Mónica DO Work Phone: [facility] 11-06-2024 11:46-0400 Systolic blood pressure 112 mm[Hg] Anali Mónica DO Work Phone: [facility] 10-17-2024 15:13-0400 Body mass index (BMI) [Ratio] 36.66 kg/m2 Anali Mónica DO Work Phone: [facility] 10-17-2024 15:13-0400 Body weight 88 kg Anali Mónica DO Work Phone: [facility] 10-17-2024 15:13-0400 Diastolic blood pressure 74 mm[Hg] Anali Mónica DO Work Phone: [facility] 10-17-2024 15:13-0400 Systolic blood pressure 120 mm[Hg] Anali Mónica DO Work Phone: [facility] 09-20-2024 15:34-0400 Body mass index (BMI) [Ratio] 36.47 kg/m2 Milka FIELDS Work Phone: [facility] 09-20-2024 15:34-0400 Body weight 87.54 kg Milka FIELDS Work Phone: [facility] 09-20-2024 15:34-0400 Diastolic blood pressure 70 mm[Hg] Milka FIELDS Work Phone: [facility] 09-20-2024 15:34-0400 Systolic blood pressure 120 mm[Hg] Milka FIELDS Work Phone: [facility] 08-20-2024 10:35-0400 Body mass index (BMI) [Ratio] 36.73 kg/m2 Anali Mónica DO Work Phone: [facility] 08-20-2024 10:35-0400 Body weight 88.18 kg Anali Mónica DO Work Phone: [facility] 08-20-2024 10:35-0400 Diastolic blood pressure 76 mm[Hg] Anali Mónica DO Work Phone: [facility] 08-20-2024 10:35-0400 Systolic blood pressure 118 mm[Hg] Anali Mónica DO Work Phone: [facility] 07-16-2024 12:04-0400 Body mass index (BMI) [Ratio] 36.05 kg/m2 Milka FIELDS Work Phone: [facility] 07-16-2024 12:04-0400 Body weight 86.55 kg Milka FIELDS Work Phone: [facility] 07-16-2024 12:04-0400 Diastolic blood pressure 70 mm[Hg] Milka FIELDS Work Phone: [facility] 07-16-2024 12:04-0400 Systolic blood pressure 116 mm[Hg] Milka FIELDS Work Phone: [facility] 06-14-2024 10:27-0500 Body mass index (BMI) [Ratio] 35.54 kg/m2 Anali Mónica DO Work Phone: [facility] 06-14-2024 10:27-0500 Body weight 85.33 kg Anali Mónica DO Work Phone: [facility] 06-14-2024 10:27-0500 Diastolic blood pressure 68 mm[Hg] Anali Mónica DO Work Phone: [facility] 06-14-2024 10:27-0500 Systolic blood pressure 110 mm[Hg] Anali Mónica DO Work Phone: [facility] 05-31-2024 14:08-0500 Body mass index (BMI) [Ratio] 36.09 kg/m2 [facility] Nurse [facility] 05-31-2024 14:08-0500 Body weight 86.64 kg [facility] Nurse [facility] 05-31-2024 14:08-0500 Diastolic blood pressure 72 mm[Hg] [facility] Nurse [facility] 05-31-2024 14:08-0500 Systolic blood pressure 118 mm[Hg] [facility] Nurse [facility] 05-30-2024 13:50-0500 Body mass index (BMI) [Ratio] 36.09 kg/m2 Anali Mónica DO Work Phone: [facility] 05-30-2024 13:50-0500 Body weight 86.64 kg Anali Mónica DO Work Phone: [facility] 05-30-2024 13:50-0500 Diastolic blood pressure 72 mm[Hg] Anali Mónica DO Work Phone: [facility] 05-30-2024 13:50-0500 Systolic blood pressure 118 mm[Hg] Anali Mónica DO Work Phone: [facility] 01-20-2024 11:30-0400 Diastolic blood pressure 63 mm[Hg] Doc Thomas MD Work Phone: [facility] 01-20-2024 11:30-0400 Heart rate 63 /min Doc Robertson Work Phone: [facility] 01-20-2024 11:30-0400 SaO2% (BldA) [Mass fraction] 99 % Doc Thomas MD Work Phone: [facility] 01-20-2024 11:30-0400 Systolic blood pressure 106 mm[Hg] Doc Thomas MD Work Phone: [facility] 01-20-2024 09:14-0400 Body height 154.9 cm Doc Robertson Work Phone: [employer] 01-20-2024 09:14-0400 Body mass index (BMI) [Ratio] 34.01 kg/m2 Doc Thomas MD Work Phone: [facility] [employer] 01-20-2024 09:14-0400 Body temperature 98.71 [degF] Doc Robertson Work Phone: [facility] [employer] 01-20-2024 09:14-0400 Body weight 81.65 kg Doc Robertson Work Phone: [employer] 01-20-2024 09:14-0400 Respiratory rate 18 /min Doc Robertson Work Phone: [employer] Encounters Encounter Date Encounter Type Care Provider Facility Start: 11-20-2024 End: 11-20-2024 ambulatory MILKA PATEL Not Available Start: 11-20-2024 End: 11-20-2024 Office outpatient visit 15 minutes Milka FIELDS Work Phone: [facility] Comment on above: Size of fetus incons istent with dates in third trimester ([facility]) (Primary Dx); Third trimester ([facility]); 33 weeks gestation of ([facility]); H/O premature delivery; Vapes nicotine containing substance; Diabetes mellitus screening Start: 11-20-2024 End: 11-20-2024 Bamboo flowsheet Milka FIELDS Work Phone: [facility] Start: 11-20-2024 End: 11-20-2024 Bamboo flowsheet Milka FIELDS Work Phone: [facility] Start: 11-06-2024 End: 11-06-2024 Bamboo flowsheet Anali Mónica DO Work Phone: [facility] Start: 11-06-2024 End: 11-06-2024 Bamboo flowsheet Anali Mónica DO Work Phone: [facility] Start: 11-06-2024 End: 11-06-2024 ambulatory ANALI MÓNICA Not Available Start: 11-06-2024 End: 11-06-2024 Office outpatient visit 15 minutes Anali Mónica DO Work Phone: [facility] Comment on above: Third trimester preg nick ([facility]); 31 weeks gestation of ([facility]) Start: 10-23-2024 End: 10-23-2024 Clinisync Result Encounter Anali Mónica DO Work Phone: [facility] Unsolicited Start: 10-23-2024 End: 10-23-2024 Clinisync Result Encounter Anali Mónica DO Work Phone: [facility] Unsolic[facility] Start: 10-17-2024 End: 10-17-2024 ambulatory ANALI MÓNICA Not Available Start: 10-17-2024 End: 10-17-2024 Office outpatient visit 15 minutes Anali Mónica DO Work Phone: [facility] Comment on above: Third trimester preg nick ([facility]); Screening examination for STI; 28 weeks gestation of ([facility]); H/O premature delivery Start: 10-17-2024 End: 10-17-2024 Bamboo flowsheet Anali Mónica DO Work Phone: [facility] Start: 10-17-2024 End: 10-18-2024 Bamboo flowsheet Anali Mónica DO Work Phone: [facility] Start: 10-17-2024 End: 10-18-2024 External Result Encounter Anali Mónica DO Work Phone: [facility] Unsolicited Start: 09-20-2024 End: 09-20-2024 ambulatory MILKA PATEL Not Available Start: 09-20-2024 End: 09-20-2024 Office outpatient visit 15 minutes Milka Patel PA Work Phone: [facility] Comment on above: Second trimester pre gnancy ([facility]); 24 weeks gestation of ([facility]); Diabetes mellitus screening Start: 09-20-2024 End: 09-20-2024 Bamboo flowsheet Milka FIELDS Work Phone: [facility] Start: 09-20-2024 End: 09-20-2024 Bamboo flowsheet Milka FIELDS Work Phone: [facility] Start: 08-20-2024 End: 08-20-2024 ambulatory ANALI MÓNICA Not Available Start: 08-20-2024 End: 08-20-2024 Office outpatient visit 15 minutes Anali Mónica DO Work Phone: [facility] Comment on above: 20 weeks gestation o f ; History of miscarriage Start: 08-20-2024 End: 08-20-2024 ambulatory ANALI MÓNICA Not Available Start: 07-16-2024 End: 07-16-2024 Bamboo flowsheet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
[2024-12-05 08:21] LABS: Hematocrit 29.0 % (36.0-48.0); Hemoglobin 9.6 g/dL (12.0-16.0); Immature Granulocytes Abs Auto 0.07 10^3/uL (0.00-0.03); Immature Granulocytes Pct Auto 0.6 % (0.0-0.5); Lymphocytes Absolute Auto 2.6 10^3/uL (1.2-3.8); Mean Corpuscular HGB Conc 33.1 g/dL (29.9-35.2); Mean Corpuscular Hemoglobin 29.8 pg (26.7-34.0); Mean Corpuscular Volume 90.1 fL (81.0-99.0); Platelet Count 294 10^3/uL (150-450); Red Blood Count 3.22 10^6/uL (4.20-5.40); White Blood Count 11.4 10^3/uL (4.0-11.0)
== END 2024-12-05 07:50 | disposition home or self-care (01) ==
PROVIDERS: PCP Internal Medicine; Visit Provider Physician Assistant
DX: Z13.1 Encounter for screening for diabetes mellitus (principal)
CPT/HCPCS: 36415; 83036; 85025

== ENCOUNTER 2024-12-05 11:22 | Outpatient (OUT) | payer OTHER, SELFPAY ==
--- OUTSIDE RECORDS SUMMARY | 2024-12-05 10:00 | XMS_ITS | Encounter Summary ---
Author Organization [facility] Address [address] [place] [address] Care Team Providers Care Angular Developer Name Role Phone Kyleigh Kathleen MD Primary Care Provider +1- [phone] Encounter Details Date Type Department Care Team (Latest Contact Info) Description 12/05/2024 10:00 AM EDT Ancillary Procedure [facility] [address] [place] [address] Size of fetus inconsistent with dates in third trimester ([facility]) Social History Tobacco Use Types Packs/Day Years [...] Care Team (Late st Contact Info) Description 12/13/2024 10:00 AM EDT Routine [facility] [address] [place] [address] Jordan Sales DO [address], [place] [id number] Pending Results Name Type Priority Associated Diagnoses Date /Time US OB follow up transabdominal approach Imaging Routine Size of fetus inconsistent with dates in third trimester ([facility]) 12/05/2024 10:37 AM EDT documented as of this encounter Goals Goal Patient Goal Type Associated Problems Recent Progress Patient-Stated? Author Reminders Care Plan OB Reminders No Open Scheduling, Background documented as of this encounter Visit Diagnoses Diagnosis Size of fetus inconsistent with dates in third trimester ([facility]) documented in this encounter Additional Health Concerns Active Problems Noted Date Diagnosed Date OB Reminders 06/10/2024 documented as of this encounter Care Teams Angular Developer Relationship Specialty Start Date End Date Kyleigh Kathleen MD [address] [facility] [place] [phone] PCP - General Internal Medicine 02/21/23 documented as of this encounter
--- OUTSIDE RECORDS SUMMARY | 2024-12-05 11:00 | XMS_ITS | Encounter Summary ---
Author Organization [facility] Address [address] [place] [facility] [place] [address] Care Team Providers Care Animal Nutrition Teacher Name Role Phone Kyleigh Kathleen MD Primary Care Provider +1- [phone] Reason for Visit * Reason Comments Routine Visit Encounter Details Date Type Department Care Team (Late st Contact Info) Description 12/05/2024 11:00 AM EDT Routine [facility] [address] [place] [phone] Jordan Sales DO [address] [facility] [address] [place] [phone] Pruritus (Primary Dx); Third trimester ([facility] 35 weeks gestation of ([facility]); Anemia during in third trimester ([facility]) Social History Tobacco Use Types Packs/Day [...] AM EDT documented as of this encounter Last Filed Vital Signs Vital Sign Reading Time Taken Comments Blood Pressure 114/70 12/05/2024 10:37 AM EDT Pulse - - Temperature - - Respiratory Rate - - Oxygen Saturation - - Inhaled Oxygen Concentration - - Weight 89.8 kg (198 lb) 12/05/2024 10:37 AM EDT Height - - Body Mass Index 37.41 11/22/2023 2:46 PM EDT documented in this encounter Progress Notes * Laura Kate NP - 12/05/2024 11:00 AM EDT Reason for Appointment: Patient ID: Susy Beth is a 33 y.o. female who presents [...] Daily citalopram (CELEXA) 10 mg, Oral, Daily iron polysaccharides (PROFE) 391.3 mg, Oral, Daily metFORMIN XR (GLUCOPHAGE-XR) 500 mg, Oral, Daily with evening meal, Do not crush, chew, or split. omeprazole (PRILOSEC) 20 mg, Oral, Daily before breakfast, Do not crush or chew. ALLERGIES No Known Allergies PROBLEMS Active Ambulatory Problems Diagnosis Date Noted LGSIL of cervix of undetermined significance 05/30/2024 Abnormal glandular Papanicolaou smear of cervix 05/30/2024 20 weeks gestation of ([facility]) 08/20/2024 H/O premature delivery 10/17/2024 Resolved [...] of Systems: Review of Systems Constitutional: Negative. Complaints of itching throughout the night that is getting worse. HENT: Negative. Eyes: Negative. Respiratory: Negative. Cardiovascular: [...] nursing note reviewed. Exam conducted with a career development manager present. Vitals: Estimated body mass index is 37.41 kg/m?? as calculated from the following: Height as of 11/22/23: 5' 1 . Weight as of this encounter: 198 lb. BP: 114/70 Patient's last menstrual period was 04/01/2024. ASSESSMENT & PLAN ICD-10-CM 1. Third trimester ([facility]) Z34.93 POCT urinalysis dipstick manually resulted 2. 35 weeks gestation of ([facility]) Z3A.35 3. Anemia during in third trimester ([facility]) O99.013 iron polysaccharides (ProFe) 391.3 (180 Fe) MG capsule Return OB: Patient presents today for a routine obstetrics appointment. Patient is currently 35w3d . Patient states she is doing well but has complaints of being tired due to current . Patient has verbalizes frequent movement. labor precautions was discussed/given and patient was instructed to perform kick counts three times a day. Orders Placed This Encounter Procedures POCT urinalysis dipstick manually resulted Follow Up: Patient is to return to office in 1 week for routine OB appointment. Patient complaints of itching that is worse at night and waking her up throughout the night. No rash or erythema is noted. Pruritus Labs obtained today Documented by Lauar Kate NP on behalf of: Jordan Sales DO documented in this encounter Plan of Treatment Upcoming Encounters Date Type Department Care Team (Late st Contact Info) Description 12/13/2024 10:00 AM EDT Routine [facility] [address] [phone] Jordan Sales DO [address] [facility] [place] [address] Scheduled Orders Name Type Priority Associated Diagnoses Orde r Schedule Hepatitis C antibody Lab Routine Pruritus Expected: 12/05/2024 (Approximate), Expires: 12/05/2025 Hepatic function panel Lab Routine Pruritus Expected: 12/05/2024 (Approximate), Expires: 12/05/2025 TSH Lab Routine Pruritus Expected: 12/05/2024 (Approximate), Expires: 12/05/2025 Bile acids, total Lab Routine Pruritus Expected: 12/05/2024 (Approximate), Expires: 12/05/2025 CBC and differential Lab Routine Pruritus Expected: 12/05/2024 (Approximate), Expires: 12/05/2025 documented as of this encounter Goals Goal Patient Goal Type Associated Problems Recent Progress Patient-Stated? Author Reminders Care Plan OB Reminders No Open Scheduling, Background documented as of this encounter Procedures Procedure Name Priority Date/Time Associated Diagnosis Comments POCT URINALYSIS DIPSTICK Routine 12/05/2024 10:47 AM EDT Third trimester ([facility]) documented in this encounter Results * POCT urinalysis dipstick manually resulted (12/05/2024 10:47 AM EDT) Color, UA Yellow Clarity, UA Clear Glucose, UA Negative Negative - 2000(110) ++++ mg/dL Bilirubin, UA Negative Negative - 4(70) +++ mg/dL Ketones, UA Negative Negative - 160(16) ++++ mg/dL Spec Grav, UA 1.010 1 - 1.03 Blood, UA Negative Negative - 50 Fahad/mcL pH, UA 7.0 5 - 9 Protein, UA Negative Negative - 1999(20) ++++ mg/dL Urobilinogen, UA 1.0 0.2 - 12 mg/dL Leukocytes, UA Negative Negative - 500+++ Carlos/mcL Nitrite, UA Negative Negative - Positive Urine 12/05/2024 10:4 7 AM EDT Jordan Sales DO POINT OF CARE TEST ENTER/EDIT OR DERABLES Final Result documented in this encounter Visit Diagnoses Diagnosis Pruritus- Primary Unspecified pruritic disorder Third trimester (HHS-HCC) state, incidental 35 weeks gestation of ([facility]HS-HCC) Anemia during in third trimester ([facility]) documented in this encounter Additional Health Concerns Active Problems Noted Date Diagnosed Date OB Reminders 06/10/2024 documented as of this encounter Care Teams Animal Nutrition Teacher Relationship Specialty Start Date End Date Kyleigh Kathleen MD [address] [place] [phone] PCP - General Internal Medicine 02/21/23 documented as of this encounter
--- OUTSIDE RECORDS SUMMARY | 2024-12-05 11:26 | XMS_ITS | Clinical Summary ---
Author Organization [employer] [facility] tem Address [id number] [address] [place] [address] Care Team Providers Care Fruit Buyer Name Role Phone Kyleigh Kathleen MD Primary [...] 04/09/2013 Medical Devices Not on file Insurance [id number] PLAN Advance Directives * Full Code (Latest Code Status on File) Date Activated Date Inactivated Comments 06/02/2019 11:08 PM 06/05/2019 11:38 PM * Full Code Date Activated Date Inactivated Comments 06/02/2019 4:29 PM 06/02/2019 11:08 PM Care Teams Fruit Buyer Relationship Specialty Start Date End Date Kyleigh Kathleen MD PCP - General Pediatrics 06/02/17
--- OUTSIDE RECORDS SUMMARY | 2024-12-05 11:26 | XMS_ITS | Encounter Summary ---
Author Organization [facility] Address [address] [place] [address] Care Team Providers Care Track Superintendent Name Role Phone Kyleigh Kathleen MD Primary Care Provider +1- [phone] Encounter Details Date Type Department Care Team (Late st Contact Info) Description 06/12/2024 Abstract [facility] [address] [place] [address] Jordan Sales DO [address] [place] [address] Zoila Perez, [facility]11 Social History Tobacco Use Types Packs/Day Years [...] Routine [facility] [address] [place] [address] Jordan Sales DO [facility] [address] [place], [place] [id number] documented as of this encounter Goals Goal Patient Goal Type Associated Problems Recent Progress Patient-Stated? Author Reminders Care Plan OB Reminders No Open Scheduling, Background documented as of this encounter Visit Diagnoses Not on filedocumented in this encounter Additional Health Concerns Active Problems Noted Date Diagnosed Date OB Reminders 06/10/2024 documented as of this encounter Care Teams Track Superintendent Relationship Specialty Start Date End Date Kyleigh Kathleen MD [address] [place] [address] PCP - General Internal Medicine 02/21/23 documented as of this encounter
--- OUTSIDE RECORDS SUMMARY | 2024-12-05 11:26 | XMS_ITS | Encounter Summary ---
Author Organization [facility] Address [address] [place] [address] Care Team Providers Care Brine Room Laborer Name Role Phone Kyleigh Kathleen MD Primary Care Provider +1- [phone] Encounter Details Date Type Department Care Team (Late st Contact Info) Description 05/31/2024 Abstract [facility] [address] [facility] [address] Jordan Sales DO [address] [place] [address] Zoila Perez, [facility]11 Social History Tobacco Use Types Packs/Day [...] Routine [facility] [address] [place] [address] Jordan Sales DO [facility] [address] [place], [place] [id number] documented as of this encounter Visit Diagnoses Not on filedocumented in this encounter Care Teams Brine Room Laborer Relationship Specialty Start Date End Date Kyleigh Kathleen MD [address] [place] [address] PCP - General Internal Medicine 02/21/23 documented as of this encounter
--- OUTSIDE RECORDS SUMMARY | 2024-12-05 11:26 | XMS_ITS | Encounter Summary ---
Author Organization [facility] Address [address] [place] [address] Care Team Providers Care Engineer Soils Name Role Phone Kyleigh Kathleen MD Primary Care Provider +1- [phone] Encounter Details Date Type Department Care Team (Late st Contact Info) Description 05/31/2024 Abstract [facility] [address] [facility] [place] [address] Jordan Sales DO [address] [place] [address] Zoila Perez, [facility]11 Social History Tobacco Use Types Packs/Day [...] Routine [facility] [address] [place] [address] Jordan Sales DO [facility] [address] [place], [place] [id number] documented as of this encounter Visit Diagnoses Not on filedocumented in this encounter Care Teams Engineer Soils Relationship Specialty Start Date End Date Kyleigh Kathleen MD [address] [place] [address] PCP - General Internal Medicine 02/21/23 documented as of this encounter
--- OUTSIDE RECORDS SUMMARY | 2024-12-05 11:26 | XMS_ITS | Encounter Summary ---
Author Organization [facility] Address [address] [place] [address] Care Team Providers Care Door Repairman Name Role Phone Kyleigh Kathleen MD Primary Care Provider +1- [phone] Encounter Details Date Type Department Care Team (Late st Contact Info) Description 06/12/2024 Abstract [facility] [address] [facility] [place] [address] Jordan Sales DO [address] [place] [address] Zoila Perez, [facility]11 Social History Tobacco Use Types Packs/Day Years [...] Routine [facility] [address] [place] [address] Jordan Sales DO [facility] [address] [place], [place] [id number] documented as of this encounter Goals Goal Patient Goal Type Associated Problems Recent Progress Patient-Stated? Author Reminders Care Plan OB Reminders No Open Scheduling, Background documented as of this encounter Visit Diagnoses Not on filedocumented in this encounter Additional Health Concerns Active Problems Noted Date Diagnosed Date OB Reminders 06/10/2024 documented as of this encounter Care Teams Door Repairman Relationship Specialty Start Date End Date Kyleigh Kathleen MD [address] [place] [address] PCP - General Internal Medicine 02/21/23 documented as of this encounter
--- OUTSIDE RECORDS SUMMARY | 2024-12-05 11:26 | XMS_ITS | Encounter Summary ---
Author Organization [facility] Address [address] [place] [address] Care Team Providers Care Director Decision Support Name Role Phone Kyleigh Kathleen MD Primary Care Provider +1- [phone] Encounter Details Date Type Department Care Team (Late st Contact Info) Description 06/19/2024 Abstract [facility] [address] [place] [address] Jordan Sales DO [address] [place] [address] Rajeev Perez, [facility]11 Social History Tobacco Use Types Packs/Day Years [...] Routine [facility] [address] [place] [address] Jordan Sales DO [facility] [address] [place], [place] [id number] documented as of this encounter Goals Goal Patient Goal Type Associated Problems Recent Progress Patient-Stated? Author Reminders Care Plan OB Reminders No Open Scheduling, Background documented as of this encounter Visit Diagnoses Not on filedocumented in this encounter Additional Health Concerns Active Problems Noted Date Diagnosed Date OB Reminders 06/10/2024 documented as of this encounter Care Teams Director Decision Support Relationship Specialty Start Date End Date Kyleigh Kathleen MD [address] [place] [address] PCP - General Internal Medicine 02/21/23 documented as of this encounter
--- OUTSIDE RECORDS SUMMARY | 2024-12-05 11:26 | XMS_ITS | Clinical Summary ---
Author Organization [facility] Address [address] [place] [address] Care Team Providers Care Emergency Room Clerk Name Role Phone Unavailable Primary Care Provider [...]
--- OUTSIDE RECORDS SUMMARY | 2024-12-05 11:26 | XMS_ITS | Encounter Summary ---
Author Organization [facility] Address [address] [facility] [place] [address] Care Team Providers Care Carpet Technician Name Role Phone Kyleigh Kathleen MD Primary Care Provider +1- [phone] Encounter Details Date Type Department Care Team (Latest Contact Info) Description 12/05/2024 Travel Social History Tobacco Use Types Packs/Day Years [...] Routine [facility] [address] [facility] [place] [phone] Jordan Sales DO [address] [facility] [place] [address] documented as of this encounter Goals Goal Patient Goal Type Associated Problems Recent Progress Patient-Stated? Author Reminders Care Plan OB Reminders No Open Scheduling, Background documented as of this encounter Visit Diagnoses Not on filedocumented in this encounter Additional Health Concerns Active Problems Noted Date Diagnosed Date OB Reminders 06/10/2024 documented as of this encounter Care Teams Carpet Technician Relationship Specialty Start Date End Date Kyleigh Kathleen MD [address] [place] [address] PCP - General Internal Medicine 02/21/23 documented as of this encounter
--- OUTSIDE RECORDS SUMMARY | 2024-12-05 11:26 | XMS_ITS | Encounter Summary ---
Author Organization [facility] Address [address] [place] [address] Care Team Providers Care Bone Drier Name Role Phone Kyleigh Kathleen MD Primary Care Provider +1- [phone] Encounter Details Date Type Department Care Team (Late st Contact Info) Description 06/13/2024 Orders Only [facility] [address] [place] [address] Lorena Sylvester LPN [address] [place] [id number] Social History Tobacco Use Types Packs/Day Years [...] AM EDT Routine [facility] [address] [place] [address] Jordan Sales DO [address] [place] [address] documented as of this encounter Goals Goal Patient Goal Type Associated Problems Recent Progress Patient-Stated? Author Reminders Care Plan OB Reminders No Open Scheduling, Background documented as of this encounter Procedures Procedure Name Priority Date/Time Associated Diagnosis Comments PAP SMEAR Routine 05/30/2024 12:00 AM EST documented in this encounter Results * Pap Smear (05/30/2024 12:00 AM EST) Swab Cervical swab / Unknown us Mónica Nurse [facility] LAB CYTOLOGY ORDERABLES Final Result EXTERNAL LAB documented in this encounter Visit Diagnoses Not on filedocumented in this encounter Additional Health Concerns Active Problems Noted Date Diagnosed Date OB Reminders 06/10/2024 documented as of this encounter Care Teams Bone Drier Relationship Specialty Start Date End Date Kyleigh Kathleen MD [address] [place] [address] PCP - General Internal Medicine 02/21/23 documented as of this encounter
--- OUTSIDE RECORDS SUMMARY | 2024-12-05 11:26 | XMS_ITS | Encounter Summary ---
Author Organization [facility] Address [address] [place] [address] Care Team Providers Care Ambulatory Technologist Name Role Phone Kyleigh Kathleen MD Primary Care Provider +1- [phone] Encounter Details Date Type Department Care Team (Late st Contact Info) Description 05/31/2024 Abstract [facility] Chris RODRIGUEZ [address] [facility] [place] [place] [address] Jordan Sales DO [address] [place] [address] Zoila Perez, [facility]11 Social History Tobacco Use Types Packs/Day [...] Routine [facility] Chris RODRIGUEZ [address] [place] [address] Jordan Sales DO [facility] [address] [place], [place] [id number] documented as of this encounter Visit Diagnoses Not on filedocumented in this encounter Care Teams Ambulatory Technologist Relationship Specialty Start Date End Date Kyleigh Kathleen MD [address] [place] [address] PCP - General Internal Medicine 02/21/23 documented as of this encounter
--- OUTSIDE RECORDS SUMMARY | 2024-12-05 11:26 | XMS_ITS | Encounter Summary ---
Author Organization [facility] Address [address] [facility] [place] [address] Care Team Providers Care Ground Defence Officer Name Role Phone Kyleigh Kathleen MD Primary Care Provider +1- [phone] Encounter Details Date Type Department Care Team (Late st Contact Info) Description 12/05/2024 Clinisync Result Encounter NOMS External Department Unsolicited Milka Long, DIAMOND [address] [facility] [place] [address] Social History Tobacco Use Types Packs/Day Years [...] 12/13/2024 10:00 AM EDT Routine [facility] Chris OBGYBoy [address] [facility] [place] [phone] Jordan Sales DO [address] [place] [address] documented as of this encounter Goals Goal Patient Goal Type Associated Problems Recent Progress Patient-Stated? Author Reminders Care Plan OB Reminders No Open Scheduling, Background documented as of this encounter Procedures Procedure Name Priority Date/Time Associated Diagnosis Comments MLR HEMOGLOBIN A1C Routine 12/05/2024 7: 56 AM EDT ALL CBC WITH AUTO DIFF Routine 12/05/2024 7:56 AM EDT documented in this encounter Results * (ABNORMAL) ALL CBC WITH AUTO DIFF (12/05/2024 7:56 AM EDT) TBH WBC 11.4(H) 4.0 - 11.0 10 3/uL TBH TBH RBC 3.22(L) 4.20 - 5.40 10 6/uL TBH TBH HGB 9.6(L) 12.0 - 16.0 g/dL TBH TBH HCT 29.0(L) 36.0 - 48.0 % TBH TBH MCV 90.1 81.0 - 99.0 fL TBH TBH MCH 29.8 26.7 - 34.0 pg TBH TBH MCHC 33.1 29.9 - 35.2 g/dL TBH TBH RDW 12.7 11.0 - 15.0 % TBH TBH PLT 294 150 - 450 10 3/uL TBH TBH MPV 9.3(L) 9.5 - 13.5 fL TBH NEUTROPHILS PERCENT AUTO 66.9 43.0 - 75.0 % TBH LYMPHOCYTES PERCENT AUTO 22.7 20.5 - 60.0 % TBH MONOCYTES PERCENT AUTO 8.1 1.7 - 12.0 % TBH TBH EO % 1.5 0.9 - 7.0 % TBH BASOPHILS PERCENT AUTO 0.2 0.2 - 2.0 % TBH IMMATURE GRANULOCYTES PCT AUTO 0.6(H) 0.0 - 0.5 % TBH NEUTROPHILS ABSOLUTE AUTO 7.6(H) 1.4 - 6.5 10 3/uL TBH LYMPHOCYTES ABSOLUTE AUTO 2.6 1.2 - 3.8 10 3/uL TBH MONOCYTES ABSOLUTE AUTO 0.9(H) 0.3 - 0.8 10 3/uL TBH TBH EO # 0.2 0.0 - 0.7 10 3/uL TBH BASOPHILS ABSOLUTE AUTO 0.0 0.0 - 0.1 10 3/uL TBH IMMATURE GRANULOCYTES ABS AUTO 0.07(H) 0.00 - 0.03 10 3/uL TBH 12/05/2024 7:56 AM EDT 12/05/2024 7:57 AM EDT Narrative CLINISYNC - 12/05/2024 8:22 AM EDT Milka COXISYNC Final Result Performing Organization Address City/[facility]/ZIP Co de Phone Number CLINISYNC TBH * MLR HEMOGLOBIN A1C (12/05/2024 7:56 AM EDT) GLYCOHEMOGLOBIN A1C 5.1 4.5 - 6.2 % TB Comment: ADA RECOMMENDED LIMIT 4.0 - 6.0 ADA THERAPEUTIC TARGET < 7.0 ACTION SUGGESTED > 7.0 ESTIMATED AVERAGE GLUCOSE 100 mg/dL TBH 12/05/2024 7:56 AM EDT 12/05/2024 7:57 AM EDT Narrative CLINISYNC - 12/05/2024 8:10 AM EDT Milka COXISYREJI Final Result Performing Organization Address City/[facility] de Phone Number CLINISYNC TBH documented in this encounter Visit Diagnoses Not on filedocumented in this encounter Additional Health Concerns Active Problems Noted Date Diagnosed Date OB Reminders 06/10/2024 documented as of this encounter Care Teams Ground Defence Officer Relationship Specialty Start Date End Date Kyleigh Kathleen MD [address] [place] [address] PCP - General Internal Medicine 02/21/23 documented as of this encounter
--- OUTSIDE RECORDS SUMMARY | 2024-12-05 11:26 | XMS_ITS | Encounter Summary ---
Author Organization [facility] Address [address] [place] [address] Care Team Providers Care Surveying Crew Stake Runner Name Role Phone Kyleigh Kathleen MD Primary Care Provider +1- [phone] Encounter Details Date Type Department Care Team (Late Contact Info) Description 11/30/2023 Orders Only [facility] Chris RODRIGUEZ [address] [facility] [place] [phone] Frida Salvador [place] [address] [facility] [place] [address] Social History Tobacco Use Types Packs/Day Years [...] AM EDT Routine [facility] Chris RODRIGUEZ [address] [place] [address] Jordan Sales DO [address] [facility] [place] [address] documented as of this encounter Procedures Procedure Name Priority Date/Time Associated Diagnosis Comments PAP SMEAR Routine 11/22/2023 12:00 AM EDT documented in this encounter Results * Pap Smear (11/22/2023 12:00 AM EDT) Swab Cervical swab / Unknown us Jordan Mónica DO LAB CYTOLOGY ORDERABLES Final Re sult EXTERNAL LAB documented in this encounter Visit Diagnoses Not on filedocumented in this encounter Care Teams Surveying Crew Stake Runner Relationship Specialty Start Date End Date Kyleigh Kathleen MD [address] [place] [phone] PCP - General Internal Medicine 02/21/23 documented as of this encounter
--- OUTSIDE RECORDS SUMMARY | 2024-12-05 11:26 | XMS_ITS | Clinical Summary ---
Author Organization [facility] Address [address] [place] [address] Care Team Providers Care Skid Strapper Name Role Phone Rakesh Shepherd MD Primary Care Provider +1- [phone] Allergies No known active allergies Medications citalopram (CeleXA) 10 MG tablet Take 20 mg by mouth in the morning. Active citalopram (CeleXA) 10 MG tablet Take 20 mg by mouth in the morning. Active cetirizine-pseudoep hedrine (ZyrTEC-D) 5-120 MG 12 hr tablet Take 1 tablet every 12 hours by oral route as directed for 30 days. Active metFORMIN XR (Glucophage-XR) 500 MG 24 hr tabletIndications:I nsulin resistance Take 1 tablet (500 mg) by mouth in the evening. Take with meals Do not crush, chew, or split. 30 tablet 11 4 Active citalopram (CeleXA) 20 MG tabletIndications:A nxiety, generalized TAKE 1 TABLET BY MOUTH DAILY 90 tablet 6 4 Active citalopram (CeleXA) 10 MG tabletIndications:A nxiety, generalized TAKE 1 TABLET BY MOUTH DAILY 90 tablet 6 4 Active omeprazole (PriLOSEC) [address] capsuleIndications: Gastroesophageal Reflux Disease,Heartburn Take 1 capsule (20 mg) by mouth in the morning. Take before meals. Do not crush or chew.. 30 capsule 3 5 Active iron polysaccharides (ProFe) 391.3 (180 Fe) MG capsuleIndications: Anemia during in third trimester (HHS-HCC) Take 1 capsule (391.3 mg) by mouth Daily 30 capsule 6 5 01/05/20 25 Active Active Problems Problem Noted Date Diagnosed Date H/O premature delivery 10/17/2024 20 weeks gestation of ([facility]) 2024 LGSIL of cervix of undetermined significance Abnormal glandular Papanicolaou smear of cervix 05/30/2024 Estimated Date of Delivery Comme nts Yes 01/06/2025 Based on Ultraso und Encounters Date Type Department Care Team Description 12/05/2024 11:00 AM EDT Routine [facility] Chris Fritz [facility] [address] Anali Sales DO Pruritus (Primary Dx); Third trimester ([facility]); 35 weeks gestation of ([facility]); Anemia during in third trimester ([facility]) 12/05/2024 10:00 AM EDT Ancillary Procedure ALBERTO Fritz [facility] [address] Size of fetus inconsistent with dates in third trimester ([facility]) 12/05/2024 Travel 12/05/2024 Clinisync Result Encounter NOMS External Department Unsolicited Milka Long PA 11/20/2024 2:30 PM EDT Routine ALBERTO [place] [address] Milka Long PA Size of fetus inconsistent with dates in third trimester ([facility]) (Primary Dx); Third trimester ([facility]); 33 weeks gestation of ([facility]); H/O premature delivery; Vapes nicotine containing substance; Diabetes mellitus screening 11/20/2024 Bamboo flowsheet ALBERTO [address] [place] [address] Milka Long PA 11/20/2024 Travel 11/06/2024 11:00 AM EDT Routine ALBERTO [address] [place] [address] Anali Sales, DO Third trimester ([facility]); 31 weeks gestation of ([facility]) 11/06/2024 Bamboo flowsheet [facility] Chris OBG[facility] [address] [facility] [place] [address] Anali Sales, DO 11/06/2024 Travel 10/23/2024 Clinisync Result Encounter NOMS External Department Unsolicited Anali Sales, DO 10/23/2024 Clinisync Result Encounter NOMS External Department Unsolicited Anali Sales, DO 10/18/2024 Telephone [facility] Chris OBGYN [address] [place] [phone] Stephanie Joseph MA 10/17/2024 2:20 PM EDT Routine [facility] Chris WAHLGYN [address] [facility] [place] [address] Anali Sales, DO Third trimester ([facility]); Screening examination for STI; 28 weeks gestation of ([facility]); H/O premature delivery 10/17/2024 External Result Encounter NOMS External Department Unsolicited Anali Sales, DO 10/17/2024 Bamboo flowsheet [facility] Chris OBGYN [address] [place] [address] Anali Sales, DO 10/17/2024 Travel 09/26/2024 Abstract [facility] Chris OBGYBoy [address] [facility] [place] [address] Anali Sales, DO 09/21/2024 Telephone [facility] Chris O[facility] [address] [facility] [place] [phone] Neeru Lopez LPN 09/20/2024 3:20 PM EDT Routine [facility]S Chris OBGYN [address] [place] [address] Milka Long PA Second trimester ([facility]); 24 weeks gestation of ([facility]); Diabetes mellitus screening 09/20/2024 Bamboo flowsheet NOMCharmaine RODRIGUEZ [address] [place] [address] Milka Long PA 09/20/2024 Travel from Last [...] (198 lb) 12/05/2024 10:37 AM EDT Height 154.9 cm (5' 1 ) 11/22/2023 2:46 PM EDT Body Mass Index 37.41 11/22/2023 2:46 PM EDT Plan of Treatment Upcoming Encounters Date Type Department Care Team (Late st Contact Info) Description 12/13/2024 10:00 AM EDT Routine NOMCharmaine RODRIGUEZ [address] [place] [phone] Anali Sales DO [address] [place], [place] [phone] Health Maintenance Due Date Last Done Comments HPV/Cotest 12/30/2021 Influenza Vaccine (#1) 2024 Cervical Cancer Screening 05/30/2027 Pap Smear 05/30/2027 05/30/2024, 11/22/2023, 02/09 Goals Goal Patient Goal Type Associated Problems Recent Progress Patient-Stated? Author Reminders Care Plan OB Reminders No Open Scheduling, Background Procedures Procedure Name Priority Date/Time Associated Diagnosis Comments POCT URINALYSIS DIPSTICK Routine 12/05/2024 10:47 AM EDT Third trimester ([facility]) ALL CBC WITH AUTO DIFF Routine 12/05/2024 7:56 AM EDT MLR HEMOGLOBIN A1C Routine 12/05/2024 7: 56 AM EDT POCT URINALYSIS DIPSTICK Routine 11/20/2024 2:57 PM EDT Third trimester ([facility]) POCT URINALYSIS DIPSTICK Routine 11/06/2024 11:50 AM EDT Third trimester ([facility]) US OB CERVICAL LENGTH 10/23/2024 8:53 PM EDT [facility] CMP (CMP) (FOR REMOTE [facility] USE) Routine 10/23/2024 7:04 PM EDT ALL CBC WITH AUTO DIFF Routine 10/23/2024 7:04 PM EDT TBH URINE MICROSCOPIC ONLY Routine 10/23/2024 5:20 PM EDT TBH UA (CLEAN/CATCH) MANAGER OF PMO/MICRO IF IND. Routine 10/23/2024 5:20 PM EDT RECURRENT VAGINITIS (HTRX) Routine 10/17/2024 3:54 PM EDT POCT URINALYSIS DIPSTICK Routine 10/17/2024 3:14 PM EDT Third trimester ([facility]) POCT URINALYSIS DIPSTICK Routine 09/20/2024 4:07 PM EDT Second trimester ([facility]) PAP SMEAR Routine 05/30/2024 12:00 AM EST from Last 3 Months or Most Recently Relevant to Health Maintenance Results * POCT urinalysis dipstick manually resulted (12/05/2024 10:47 AM EDT) Only the most recent of5 resultswithin the time period is included. [facility] Color, UA Yellow Clarity, UA Clear Glucose, [...] Positive Urine 12/05/2024 10:4 7 AM EDT us Anali Sales DO POINT OF CARE TEST ENTER/EDIT OR DERABLES Final Result * MLR HEMOGLOBIN A1C (12/05/2024 7:56 AM EDT) [facility] GLYCOHEMOGLOBIN A1C 5.1 4.5 - 6.2 % [facility] Comment: ADA RECOMMENDED LIMIT 4.0 - 6.0 ADA THERAPEUTIC TARGET < 7.0 ACTION SUGGESTED > 7.0 ESTIMATED AVERAGE GLUCOSE 100 mg/dL [facility] 12/05/2024 7:56 AM EDT 12/05/2024 7:57 AM EDT Narrative CLINISYNC - 12/05/2024 8:10 AM EDT us Milka FIELDS CLINISYREJI Final Result [facility] * (ABNORMAL) ALL CBC WITH AUTO DIFF (12/05/2024 7:56 AM EDT) Only the most recent of2 resultswithin the time period is included. [facility]H WBC 11.4(H) 4.0 - 11.0 10 [...] Narrative CLINISYNC - 12/05/2024 8:22 AM EDT us Milka HERNANDEZ Final Result CLINISYNC [facility] * US OB CERVICAL LENGTH (10/23/2024 8:53 PM EDT) Anatomical Region Laterality Modality Other 10/23/2024 8:53 PM EDT Narrative 10/23/2024 8:56 [place] [address] Ultrasound Report Signed Patient: POOJA VALENCIA MR#: [id number] : 1990 Acct:[id number] Age/Sex: 33 / F ADM Date: Loc: [facility] 254-[address]: Anali Sales D.O. Ordering Physician: Anali Sales D.O. Date of Service: 10/23/24 Procedure(s): US OB cervical length Accession Number(s): [id number] cc: Anali Sales D.O.; RAKESH SHEPHERD [place] [id number] Patient Name: POOJA VALENCIA MRN: [facility]:[id number] date: 1990 Sex: F Assigned Patient Location: [facility] Current Patient Location: [facility] Accession/Order Number: [id number] Exam Date: 10/23/2024 20:48 Report Date: 10/23/2024 [...] cervical os is closed. Impression dictated by: Chcoo Ruiz M.D. 10/23/2024 8:53 PM Dictation Location: [place] [address] Electronically authenticated by: [id number] Y Date: 10/23/2024 20:53 Dictated By: Choco Ruiz M.D. Signed By: 10/23/242055 DD/ 52 TD/TT: Wharf Tender Helper: Procedure Note Radiology, Radiologist, MD - 10/23/2024 [place] [address] Ultrasound Report Signed Patient: POOJA VALENCIA LMR#: [id number] : 1990Acct:[id number] Age/Sex: 33 / FADM Date: Loc: [facility] 254-[address]: Anali Sales D.O. Ordering Physician: Anali Sales D.O. Date of Service: 10/23/24 Procedure(s): US OB cervical length Accession Number(s): [id number] cc: Anali Sales D.O.; RAKESH SHEPHERD [place] [address] Patient Name: POOJA VALENCIA MRN: [id number] date: 1990 Sex: F Assigned Patient Location: [facility] Current Patient Location: [facility] Accession/Order Number: [id number] Exam Date: 10/23/2024 20:48 Report Date: 10/23/2024 [...] Ruiz M.D. 10/23/2024 8:53 PM Dictation Location: [place] [address] Electronically authenticated by: [id number] Y Date: 0:53 Dictated By: Choco Ruiz M.D. Signed By:10/23/242055 DD/ 52 TD/TT: Wharf Tender Helper: us Anali Mónica DO CLINISYNC IMAGING Final Result * (ABNORMAL) [facility] CMP (CMP) (FOR REMOTE [facility] USE) (10/23/2024 7:04 PM EDT) SODIUM [...] 0.55 - 1.02 mg/dL TBH TBH EGFR-AF SWISS >60 >=60 mL/min/1. 73m 2 TBH TBH EGFR-NON AF SWISS >60 >=60 mL/min/1. 73m 2 TBH BUN [...] CLINISYNC - 10/23/2024 7:28 PM EDT Anali Mónica DO CLINISYNC Final Result Performing Organization Address [facility] de Phone Number CLINISYNC TB[facility] * (ABNORMAL) [...] Narrative CLINISYNC - 10/23/2024 6:25 PM EDT [facility] Mónica DO CLINISYNC Final Result Performing Organization Address [facility] Phone Number CLINTITI TBH * (ABNORMAL) TBH UA (CLEAN/CATCH) MANAGER OF PMO/MICRO IF IND. (10/23/2024 5:20 PM EDT) COLOR [...] CLINISYNC - 10/23/2024 6:25 PM EDT Anali Sales DO CLINISYNC Final Result [facility] * (ABNORMAL) RECURRENT VAGINITIS (HTRX) (10/17/2024 3:54 PM EDT) [facility] ATOPOBIUM VAGINAE 18.848(A) 19.961 - 24.689 ppm 10/18/2024 6:17 AM EDT [facility] ATOPOBIUM VAGINAE Detected(A) 19.961 - 24.689 ppm 10/18/2024 6:17 AM EDT [facility] BVAB 2,3 (BACTERIAL VAGINOSIS ASSOCIATED BACTERIA 2, 3); MOBILUNCUS SPP 11.617(A) 19.961 - 24.689 ppm 10/18/2024 6:17 AM EDT [facility] BVAB 2,3 (BACTERIAL VAGINOSIS ASSOCIATED BACTERIA 2, 3); MOBILUNCUS SPP Detected(A) 19.961 - 24.689 ppm 10/18/2024 6:17 AM EDT [facility] SABRINA ALBICANS, PARAPSILOSIS, TROPICALIS 0 19.961 - 30.770 ppm 10/18/2024 6:17 AM EDT [facility] SABRINA ALBICANS, PARAPSILOSIS, TROPICALIS Not Detected 19.961 - 30.770 ppm 10/18/2024 6:17 AM EDT [facility] SABRINA GLABRATA 0 23.000 - 32.138 ppm 10/18/2024 6:17 AM EDT [facility] SABRINA GLABRATA Not Detected 23.000 - 32.138 ppm 10/18/2024 6:17 AM EDT [facility] SABRINA KRUSEI 0 23.000 - 32.271 ppm 10/18/2024 6:17 AM EDT [facility] SABRINA KRUSEI Not Detected 23.000 - 32.271 ppm 10/18/2024 6:17 AM EDT [facility] CHLAMYDIA TRACHOMATIS 0 23.000 - 31.467 ppm 10/18/2024 6:17 AM EDT [facility] CHLAMYDIA TRACHOMATIS Not Detected 23.000 - 31.467 ppm 10/18/2024 6:17 AM EDT [facility] GARDNERELLA VAGINALIS 18.3560(A) 19.961 - 24.689 ppm 10/18/2024 6:17 AM EDT [facility] GARDNERELLA VAGINALIS Detected(A) 19.961 - 24.689 ppm 10/18/2024 6:17 AM EDT [facility] MEGASPHAERA (TYPES 1, 2) 0 19.961 - 24.689 ppm 10/18/2024 6:17 AM EDT [facility] MEGASPHAERA (TYPES 1, 2) Not Detected 19.961 - 24.689 ppm 10/18/2024 6:17 AM EDT [facility] NEISSERIA GONORRHOEAE 0 23.000 - 32.117 ppm 10/18/2024 6:17 AM EDT [facility] NEISSERIA GONORRHOEAE Not Detected 23.000 - 32.117 ppm 10/18/2024 6:17 AM EDT [facility] TRICHOMONAS VAGINALIS 0 23.000 - 32.119 ppm 10/18/2024 6:17 AM EDT [facility] TRICHOMONAS VAGINALIS Not Detected 23.000 - 32.119 ppm 10/18/2024 6:17 AM EDT [facility] MYCOPLASMA GENITALIUM 0 19.961 - 24.689 ppm 10/18/2024 6:17 AM EDT [facility] MYCOPLASMA GENITALIUM Not Detected 19.961 - 24.689 ppm 10/18/2024 6:17 AM EDT [facility] ERMB, C; MEFA 19.21(A) 23.000 - 27.611 ppm 10/18/2024 6:17 AM EDT [facility] ERMB, C; MEFA Detected(A) 23.000 - 27.611 ppm 10/18/2024 6:17 AM EDT [facility] TET B, TET M 17.573(A) 23.000 - 27.778 ppm 10/18/2024 6:17 AM EDT [facility] TET B, TET M Detected(A) 23.000 - 27.778 ppm 10/18/2024 6:17 AM EDT [facility] Tissue 10/17/2024 3:54 PM EDT 10/18/2024 1:42 AM EDT Anali Sales DO LAB BLOOD ORDERABLES Final Resul t [facility] [address] [place] [address] * Pap Smear (05/30/2024 12:00 AM EST) Swab Cervical swab / Unknown Mónica Nurse [facility] Ob LAB CYTOLOGY ORDERABLES Final Result EXTERNAL LAB from Last 3 Months or Most Recently Relevant to Health Maintenance Additional Health Concerns Active Problems Noted Date Diagnosed Date OB Reminders 06/10/2024 Insurance MEDICAID [place] Care Teams Skid Strapper Relationship Specialty Start Date End Date Rakesh Shepherd MD [address] [place] [phone] PCP - General Internal Medicine 02/21/23
--- OUTSIDE RECORDS SUMMARY | 2024-12-05 11:26 | XMS_ITS | Encounter Summary ---
Author Organization [facility] Address [address] [place] [address] Care Team Providers Care Biazzi Nitrator Operator Name Role Phone Kyleigh Kathleen MD Primary Care Provider +1- [phone] Encounter Details Date Type Department Care Team (Late st Contact Info) Description 07/05/2024 Abstract [facility] Chris RODRIGUEZ [address] [facility] [place] [address] Jordan Sales DO [address] [place] [address] Zoila Perez, [facility] Social History Tobacco Use Types Packs/Day [...] Routine NOMS Chris RODRIGUEZ [address] [place] [address] Jordan Sales DO [facility] [address] [place], [place] [address] documented as of this encounter Goals Goal Patient Goal Type Associated Problems Recent Progress Patient-Stated? Author Reminders Care Plan OB Reminders No Open Scheduling, Background documented as of this encounter Visit Diagnoses Not on filedocumented in this encounter Additional Health Concerns Active Problems Noted Date Diagnosed Date OB Reminders 06/10/2024 documented as of this encounter Care Teams Biazzi Nitrator Operator Relationship Specialty Start Date End Date Kyleigh Kathleen MD [address] [place] [address] PCP - General Internal Medicine 02/21/23 documented as of this encounter
[2024-12-05 12:06] LABS: Alanine Aminotransferase 12 U/L (14-59); Albumin Globulin Ratio 0.5; Albumin Level 2.4 g/dL (3.4-5.0); Alkaline Phosphatase 117 U/L (46-116); Aspartate Amino Transferase 15 U/L (15-37); Globulin 4.5 g/dL; Thyroid Stimulating Hormone 2.147 uIU/mL (0.358-3.740); Total Protein 6.9 g/dL (6.4-8.2)
--- OUTSIDE RECORDS SUMMARY | 2024-12-05 12:24 | XMS_ITS | CCD ---
Author Organization [facility] Care Team Providers Care Hospitality Internship Name Role Phone REQUEST, DR NONE LISTED Primary Care Unavaila romy SALES ., DR BRIONES Attending Unavailable MÓNICA ., DR BRIONES Consulting Unavailable MÓNICA ., DR BRIONES Admitting RAKESH Barnett Primary Care UnavailDOC Oneill Attending Unavailannita e Eddie Primary Care Provider Miguel Shepherd MD, Rakesh Primary Care Provider [phone] ANALI SALES Attending Unavailable ANALI SALES Attending [...] 12/16/2022 Active take 2 tablets by mo [facility] in the morning citalopram (CeleXA) 10 [...] omeprazole 20 mg delayed release oral capsule (20 sources) Proton Pump Inhibitor Start: 07-16-2024 End: 08-15-2024 take 1 capsule by mouth before mealtime omeprazole (PriLOSEC) [address] capsule Indications: Gastroesophageal Reflux Disease , Heartburn Take 1 capsule (20 mg) by mouth in the morning. Take before meals. Do not crush or chew.. 30 capsule 3 07/16/2024 Active polysaccharide iron complex 391 mg oral capsule (2 sources) Start: 12-05-2024 End: 01-04-2025 take 1 capsule by mouth once daily iron polysaccharides (ProFe) 391.3 (180 Fe) MG capsule Indications: Anemia during in third trimester ([facility]) Take 1 capsule (391.3 mg) by mouth Daily 30 capsule 6 12/05/2024 01/04/2025 Active Progesterone 200 MG suppository (9 sources) [...] 05-30-2024 Chronic Other complications of (2 sources) Anemia of ; Translations: [Anemia complicating , third trimester] 12-05-2024 Chronic Other complications of (2 sources) Gastroesophageal [...] vagina] 07-16-2024 Episodic Other female genital disorders (18 sources) H/O: premature delivery; Translations: [Personal history of pre-term labor] Onset: 10-17-2024 10-17-2024 Episodic Other inflammatory condition of skin (2 sources) Pruritus, unspecified; Translations: [Unspecified pruritic disorder] 12-05-2024 Episodic Other and delivery including normal (18 sources) Encounter for supervision of normal , unspecified, unspecified trimester; Translations: [] Onset: 01-20-2024 01-20-2024 Episodic Residual codes; unclassified (2 sources) Gestation [...] cigarette user; Translations: [Tobacco use] 11-20-2024 Episodic Residual codes; unclassified (2 sources) Gestation period, 35 weeks; Translations: [35 weeks gestation of ] 12-05-2024 Episodic Sprains and strains (2 sources) Strain [...] of cervix (LGSIL)] Onset: 05-30-2024 05-30-2024 Episodic Other screening for suspected conditions (not mental disorders or infectious disease) (20 sources) Encounter for screening for malignant neoplasm of cervix; Translations: [Abnormal cervical Papanicolaou smear] Onset: 07-21-2022 Episodic Residual codes; unclassified (20 sources) Gestation period, 20 weeks; Translations: [20 weeks gestation of ] Onset: 08-20-2024 08-20-2024 Episodic Results Test Name Value Interpretation Reference Range Facility [facility] HEMOGLOBIN A1Con 025 Glucose [Mass/Vol] 100 mg/dL [facility] HbA1c (Bld) [Mass fraction] 5.1 % 4.5 - 6.2 % [facility] Comment on above: ADA RECOMMENDED LIMI T 4.0 - 6.0 ADA THERAPEUTIC TARGET < 7.0 ACTION SUGGESTED > 7.0 [facility] Healthcar e Urinalysis macro (dipstick) panel (U)on 12-05-2024 Bilirubin, UA Negative Negative - 4(70) +++ mg/dL [facility] Blood, UA Negative Negative - 50 Fahad/mcL [facility] Clarity, UA Clear [facility] re Color, UA Yellow [facility] Healthcar e Glucose, UA Negative Negative - 1999(110) ++++ mg/dL [facility] Interpretation and review of laboratory results Normal [facility] Ketones, UA Negative Negative - 160(16) ++++ mg/dL [facility] Leukocytes, UA Negative Negative - 500+++ Carlos/mcL [facility] Nitrite, UA Negative Negative - Positive [facility] pH, UA 7 5 - 9 [facility] e Protein, UA Negative Negative - 1999(20) ++++ mg/dL [facility] Spec Grav, UA 1.01 1 - 1.03 [facility] Urobilinogen, UA 1.0 0.2 - 12 mg/dL [facility] Urinalysis macro (dipstick) panel (U)on 11-20-2024 Bilirubin, UA Negative Negative - 4(70) +++ mg/dL [facility] Blood, UA Negative Negative - 50 Fahad/mcL [facility] Clarity, UA Clear [facility] re Color, UA Yellow [facility] Glucose, UA Negative Negative - 1999(110) ++++ mg/dL [facility] Healthcare Interpretation and review of laboratory results Normal [facility] Healthcare Ketones, UA Negative Negative - 160(16) ++++ mg/dL [facility] Healthcare Leukocytes, UA Negative Negative - 500+++ Carlos/mcL [facility] Healthcare Nitrite, UA Negative Negative - Positive [facility] Healthcare pH, UA 7 5 - 9 [facility] Protein, UA Negative Negative - 1999(20) ++++ mg/dL [facility] Healthcare Spec Grav, UA 1.02 1 - 1.03 [facility] Urobilinogen, UA 1.0 0.2 - 12 mg/dL [facility] Urinalysis macro (dipstick) panel (U)on 11-06-2024 Bilirubin, UA Negative Negative - 4(70) +++ mg/dL [facility] Blood, UA Negative Negative - 50 Fahad/mcL [facility] Healthcare Clarity, UA Clear [facility] re Color, UA Yellow [facility] Glucose, UA Negative Negative - 1999(110) ++++ mg/dL [facility] Interpretation and review of laboratory results Abnormal [facility] Ketones, UA Negative Negative - 160(16) ++++ mg/dL [facility] Healthcare Leukocytes, UA Moderate Negative - 500+++ Carlos/mcL [facility] Healthcare Nitrite, UA Negative Negative - Positive [facility] pH, UA 6.5 5 - 9 [facility] Protein, UA Negative Negative - 1999(20) ++++ mg/dL [facility] Healthcare Spec Grav, UA 1.01 1 - 1.03 [facility] Health care Urobilinogen, UA 0.2 0.2 - 12 mg/dL [facility] Healthcare [facility] UA (CLEAN/CATCH) 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 YELLOW YELLOW [facility] GLUCOSE URINE UA Negative NEGATIVE mg/dL [facility] Healthcare Interpretation and review of laboratory results Abnormal [facility] Healthcare Ketones Ql (U) 15 mg/dL Abnormal NEGATIVE [facility] Leukocyte esterase Test strip Ql (U) TRACE Abnormal NEGATIVE [facility] NITRITE URINE Negative NEGATIVE [facility] Health care pH (U) 7.5 [pH] 5.0 - 9.0 [facility] PROTEIN URINE Negative NEG/TRACE mg/dL [facility] SPECIFIC GRAVITY URINE 1.015 1.005 - 1.025 [facility] URINE MICROSCOPIC INDICATED YES [facility] UROBILINOGEN URINE 0.2 EU/dL 0.2 - 1.0 EU/dL [facility] US OB CERVICAL LENGTHon 10-09 [place] [address] Ultrasound Report Signed Patient: POOJA VALENCIA MR#: [id number] : 1990 Acct:[id number] Age/Sex: 33 / F ADM Date: Loc: [facility] 254-[address]: Anali Sales D.O. Ordering Physician: Anali Sales D.O. Date of Service: 10/23/24 Procedure(s): US OB cervical length Accession Number(s): [id number] cc: Anali Sales D.O.; RAKESH SHEPHERD [place] [phone] Patient Name: POOJA VALENCIA MRN: [id number] date: 1990 Sex: F Assigned Patient Location: [facility] Current Patient Location: [facility] Accession/Order Number: [id number] Exam Date: 10/23/2024 20:48 Report Date: 10/23/2024 [...] Ruiz M.D. 10/23/2024 8:53 PM Dictation Location: [place] [address] Electronically authenticated by: [id number] Y Date: 10/23/2024 20:53 Dictated By: Choco Ruiz M.D. Signed By: 10/23/242055 DD/ 52 TD/TT: Executive Administrator: [facility] Radiology, Radiologist, - 10/23/2024 [place] [address] Ultrasound Report Signed Patient: POOJA VALENCIA MR#: [id number] : 1990 Acct:[id number] Age/Sex: 33 / F ADM Date: Loc: [facility] 254- Attending Dr: Anali Sales D.O. Ordering Physician: Anali Sales D.O. Date of Service: 10/23/24 Procedure(s): US OB cervical length Accession Number(s): [id number] cc: Anali Sales D.O.; RAKESH SHEPHERD [place] [phone] Patient Name: POOJA VALENCIA MRN: [facility]:[id number] date: 1990 Sex: F Assigned Patient Location: [facility] Current Patient Location: [facility] Accession/Order Number: [id number] Exam Date: 10/23/2024 20:48 Report Date: 10/23/2024 [...] Ruiz M.D. 10/23/2024 8:53 PM Dictation Location: [place] [address] Electronically authenticated by: [id number] Y Date: 10/23/2024 20:53 Dictated By: Choco Ruiz M.D. Signed By: 10/23/242055 DD/ 52 TD/TT: Executive Administrator: [facility] Radiology Study observation (narrative) [facility] OB CERVICAL LENGTHOrdered By: Radiologist Radiology on 10-23-2024 [facility] e Work Phone: RECURRENT VAGINITIS (HTRX)on 10-18-2024 ATOPOBIUM VAGINAE 18.848 Abnormal [facility] althcare ATOPOBIUM VAGINAE Detected Abnormal [facility] BVAB 2,3 (BACTERIAL VAGINOSIS ASSOCIATED BACTERIA 2, 3); MOBILUNCUS SPP 11.617 Abnormal [facility] BVAB 2,3 (BACTERIAL VAGINOSIS ASSOCIATED BACTERIA 2, 3); MOBILUNCUS SPP Detected Abnormal [facility] SABRINA ALBICANS, PARAPSILOSIS, TROPICALIS 0 [facility] SABRINA ALBICANS, PARAPSILOSIS, TROPICALIS Not detected [facility] SABRINA GLABRATA 0 [facility] SABRINA GLABRATA Not detected [facility] ealthcare SABRINA KRUSEI 0 [facility] hcare SABRINA KRUSEI Not detected [facility] CHLAMYDIA TRACHOMATIS 0 [facility] CHLAMYDIA TRACHOMATIS Not detected N [facility] Healthcare ERMB, C; MEFA 19.[address] [facility] care ERMB, C; MEFA Detected Abnormal [facility] GARDNERELLA VAGINALIS 18.[address] [facility] GARDNERELLA VAGINALIS Detected Abnormal [facility] Interpretation and review of laboratory results Abnormal [facility] MEGASPHAERA (TYPES 1, 2) 0 [facility] MEGASPHAERA (TYPES 1, 2) Not detected [facility] MYCOPLASMA GENITALIUM 0 [facility] MYCOPLASMA GENITALIUM Not detected N [facility] NEISSERIA GONORRHOEAE [address] [facility] NEISSERIA GONORRHOEAE Not detected N [facility] TET B, TET M 17.573 Abnormal [facility] Healthc are TET B, TET M Detected Abnormal [facility] TRICHOMONAS VAGINALIS 0 [facility] TRICHOMONAS VAGINALIS Not detected N [facility] Urinalysis macro (dipstick) panel (U)on 10-17-2024 Bilirubin, UA Negative Negative - 4(70) +++ mg/dL [facility] Blood, UA Negative Negative - 50 Fahad/mcL [facility] Clarity, UA Clear [facility] Healthca re Color, UA Yellow [facility] Healthcar e Glucose, UA Negative Negative - 1999(110) ++++ mg/dL [facility] Interpretation and review of laboratory results Normal [facility] Ketones, UA Negative Negative - 160(16) ++++ mg/dL [facility] Leukocytes, UA Negative Negative - 500+++ Carlos/mcL [facility] Nitrite, UA Negative Negative - Positive [facility] pH, UA 6 5 - [address] [facility] Protein, UA Negative Negative - 1999(20) ++++ mg/dL [facility] Spec Grav, UA 1.02 1 - 1.03 [facility] Urobilinogen, UA 0.2 0.2 - 12 mg/dL [facility] Urinalysis macro (dipstick) panel (U)on 09-20-2024 Bilirubin, UA Negative Negative - 4(70) +++ mg/dL [facility] Blood, UA Positive Negative - 50 Fahad/mcL [facility] Healthcare Comment on above: trace Clarity, UA Clear [facility] Healthca re Color, UA Yellow [facility] Healthcar e Glucose, UA Negative Negative - 1999(110) ++++ mg/dL [facility] Interpretation and review of laboratory results Normal [facility] Ketones, UA Negative Negative - 160(16) ++++ mg/dL [facility] Leukocytes, UA Positive Negative - 500+++ Carlos/mcL [facility] Comment on above: small Nitrite, UA Negative Negative - Positive [facility] pH, UA 6.5 5 - 9 [facility] [employer] e Protein, UA Negative Negative - 1999(20) ++++ mg/dL [facility] Spec Grav, UA 1.01 1 - 1.03 [facility] Urobilinogen, UA 0.2 0.2 - 12 mg/dL [facility] Healthcar e US OB 14+ WEEKS ANATOMY [...] UA Negative Negative - 4(70) +++ mg/dL [facility] Blood, UA Positive Negative - 50 Fahad/mcL [facility] Comment on above: trace-intact Clarity, UA Clear [facility] re Color, UA Yellow [facility] [employer] e Glucose, UA Negative Negative - 1999(110) ++++ mg/dL [facility] Interpretation and review of laboratory results Abnormal [facility] Ketones, UA Negative Negative - 160(16) ++++ mg/dL [facility] Leukocytes, UA Positive Negative - 500+++ Carlos/mcL [facility] Comment on above: large Nitrite, UA Negative Negative - Positive [facility] pH, UA 6.5 5 - 9 [facility] [employer] e Protein, UA Negative Negative - 1999(20) ++++ mg/dL [facility] Spec Grav, UA 1.02 1 - 1.03 [facility] Urobilinogen, UA 2.0 0.2 - 12 mg/dL [facility] BOX TESTon 06-12-2024 BOX TEST SENT OUT [employer] [facility] BOX1 [facility] [employer] e BOX2 06/12/2024 [facility] [employer] [employer] PAP IG, APT HPV RFX 16/18,45 on 06-05-2024 HPV APTIMA Positive Abnormal Negative [facility] [employer] Comment on above: This nucleic acid am plification test detects fourteen high- risk HPV types (16,18,31,33,35,39,45,51,52,56,58,59,66,68) without differentiation. Interpretation and review of laboratory results Abnormal [facility] PAP IG (IMAGE GUIDED) Note . [facility] Comment on above: TESTS RESULT FLAG UN ITS REF RANGE LAB Clinician Provided Cytology Information Source.............Cervix Other.............. No. of containers..01 ThinPrep Vial DIAGNOSIS: 01 NEGATIVE FOR INTRAEPITHELIAL LESION OR MALIGNANCY. Specimen adequacy: 01 Satisfactory for evaluation. Endocervical and/or squamous metaplastic cells (endocervical component) are present. Performed by: Carmen Jones, Making Machine Operator ([facility]) . 01 Note: Note [...] <-Panic Low,>-Panic High,A-Abnormal,AA-Critical Abnormal Performed at: 01 [facility] [address] [place] [address] Rhina Armstrong MD, [facility] HPV GENOTYPE 16 Negative Negative [facility] HPV GENOTYPE 18,45 Negative Negative NO [place] [facility] Comment on above: Performed at: WB - [address], [place] [id number] International Freight Forwarder: Rhina Armstrong MD, Phone: [phone] Performed at: =[facility] [id number] International Freight Forwarder: Rhina Armstrong MD, Phone: [phone] SPATULA-ALONE CERVIX [facility] HCG ( test) Ql (U)o n 05-31-2024 Interpretation and review of laboratory results Abnormal [facility] Preg Test, Ur Positive Negative [facility] US OB TRANSVAGINALon 025 [place] [address] Ultrasound Report Signed Patient: POOJA VALENCIA MR#: [id number] : 1990 Acct:[id number] Age/Sex: 33 / F ADM Date: 05/31/24 Loc: US Attending Dr: Anali Sales D.O. Ordering Physician: Anali Sales D.O. Date of Service: 05/31/24 Procedure(s): US OB transvaginal Accession Number(s): [id number] cc: Anali Sales D.O.; RAKESH SHEPHERD [place] [id number] Patient Name: POOJA VALENCIA MRN: [id number] date: 1990 Sex: F Assigned Patient Location: Current Patient Location: Accession/Order Number: [id number] Exam Date: 05/31/2024 14:04 Report Date: 05/31/2024 [...] Mckenzie Alvarez M.D.05/31/2024 2:09 PM Dictation Location: [place] [address] Electronically authenticated by: [id number] Y Date: 05/31/2024 14:09 Dictated By: Mckenzie Alvarez M.D. Signed By: 05/31/24 1412 DD/ 1409 TD/TT: Executive Administrator: [facility] Radiology, Radiologist, - 05/31/2024 [place] [address] Ultrasound Report Signed Patient: POOJA VALENCIA MR#: [id number] : 1990 Acct:[id number] Age/Sex: 33 / F ADM Date: 05/31/24 Loc: US Attending Dr: Anali Sales D.O. Ordering Physician: Anali Sales D.O. Date of Service: 05/31/24 Procedure(s): US OB transvaginal Accession Number(s): [id number] cc: Anali Sales D.O.; RAKESH SHEPHERD [place] [phone] Patient Name: POOJA VALENCIA MRN: [facility]:[id number] date: 1990 Sex: F Assigned Patient Location: US Current Patient Location: US Accession/Order Number: [id number] Exam Date: 05/31/2024 14:04 Report Date: 05/31/2024 [...] Mckenzie Alvarez M.D.05/31/2024 2:09 PM Dictation Location: [place] [address] Electronically authenticated by: [id number] Y Date: 05/31/2024 14:09 Dictated By: Mckenzie Alvarez M.D. Signed By: 05/31/24 1412 DD/ 1409 TD/TT: Executive Administrator: [facility] Radiology Study [facility]narrative) [facility] OB TRANSVAGINALOrdered By : Radiologist Radiology on 05-31-2024 [facility] [employer] e Work Phone: Urinalysis macro (dipstick) panel (U)on 05-31-2024 Bilirubin, UA Negative Negative - 4(70) +++ mg/dL [facility] Blood, UA Negative Negative - 50 Fahad/mcL [facility] Clarity, UA Clear [facility] re Color, UA Yellow [facility] [employer] [facility] e Glucose, UA Negative Negative - 2000(110) ++++ mg/dL [facility] Interpretation and review of laboratory results Abnormal [facility] Ketones, UA Negative Negative - 160(16) ++++ mg/dL [facility] Leukocytes, UA Moderate Negative - 500+++ Carlos/mcL [facility] Nitrite, UA Negative Negative - Positive [facility] pH, UA 7 5 - 9 [facility] Protein, UA Negative Negative - 1999(20) ++++ mg/dL [facility] Spec Grav, UA 1.02 1 - 1.03 [facility] Urobilinogen, UA 1.0 0.2 - 12 mg/dL [facility] TBH PREG QUANT HCGon 05-14- 025 HCG QUANTITATIVE 57263 mIU/mL [facility] ltare Comment on above: 5-50 0.2-1 WEEK 50-500 1-2 WEEKS 100-5,000 2-3 WEEKS 500-10,000 3-4 WEEKS 1,000-50,000 4-5 WEEKS 10,000-100,000 5-6 WEEKS 15,000-200,000 6-8 WEEKS 10,000-100,000 [facility]ANT HCGon 02-21- 024 HCG QUANTITATIVE 6 mIU/mL [facility] ltare Comment on above: 5-50 0.2-1 WEEK 50-500 1-2 WEEKS 100-5,000 2-3 WEEKS 500-10,000 3-4 WEEKS 1,000-50,000 4-5 WEEKS 10,000-100,000 5-6 WEEKS 15,000-200,000 6-8 WEEKS 10,000-100,000 2-3 [facility] 02-01- 024 HCG QUANTITATIVE 381 mIU/mL [facility] ltare Comment on above: 5-50 0.2-1 WEEK 50-500 1-2 WEEKS 100-5,000 2-3 WEEKS 500-10,000 3-4 WEEKS 1,000-50,000 4-5 WEEKS 10,000-100,000 5-6 WEEKS 15,000-200,000 6-8 WEEKS 10,000-100,000 2-[facility] PREG QUANT HCGon 01-26- 024 HCG QUANTITATIVE 1255 mIU/mL [facility] lt[facility] Comment on above: 5-50 0.2-1 WEEK 50-500 1-2 WEEKS 100-5,000 2-3 WEEKS 500-10,000 3-4 WEEKS 1,000-50,000 4-5 WEEKS 10,000-100,000 5-6 WEEKS 15,000-200,000 6-8 WEEKS 10,000-100,000 2-3 MONTHS [facility] PREG QUANT HCGon 01-24-2 024 HCG QUANTITATIVE 1395 mIU/mL [facility] Comment on above: 5-50 0.2-1 WEEK 50-500 1-2 WEEKS 100-5,000 2-3 WEEKS 500-10,000 3-4 WEEKS 1,000-50,000 4-5 WEEKS 10,000-100,000 5-6 WEEKS 15,000-200,000 6-8 WEEKS 10,000-100,000 2-3 MONTHS [facility] TB[facility] PREG QUANT HCGon 01-22- 024 HCG QUANTITATIVE 1276 mIU/mL [facility] ltare Comment on above: 5-50 0.2-1 WEEK 50-500 1-2 WEEKS 100-5,000 2-3 WEEKS 500-10,000 3-4 WEEKS 1,000-50,000 4-5 WEEKS 10,000-100,000 5-6 WEEKS 15,000-200,000 6-8 WEEKS 10,000-100,000 2-3 MONTHS [facility] Healthcar e CBC with Auto Differentialon 01-20-2024 Basophils (Bld) [#/Vol] 0.00 10*3/uL [facility] Basophils/100 WBC (Bld) 0 % 0 - 2 % [facility] Eosinophils (Bld) [#/Vol] 0.20 10*3/uL [facility] Eosinophils/100 WBC (Bld) 4 % 0 - 4 % [facility] Erythrocyte distribution width (RBC) [Ratio] 12.4 % 11.5 - 14.9 % [facility] Hematocrit (Bld) [Volume fraction] 35.4 % Low 36 - 46 % [facility] Hemoglobin (Bld) [Mass/Vol] 12.1 g/dL 12.0 - 16.0 g/dL [facility] Interpretation and review of laboratory results Abnormal [facility] Lymphocytes/100 WBC (Bld) 33 % 24 - 44 % [facility] Lymphocytes/100 WBC (Bld) 1.70 % [facility] MCH (RBC) [Entitic mass] 32.5 pg 26 - 34 pg [facility] MCHC (RBC) [Mass/Vol] 34.3 g/dL 31 - 37 g/dL B on [facility] MCV (RBC) [Entitic vol] 94.9 fL 80 - 100 fL [facility] Monocytes/100 WBC (Bld) 10 % High 1 - 7 % B on [facility] Monocytes/100 WBC (Bld) 0.50 % B on [facility] Neutrophils/100 WBC (Bld) 53 % 36 - 66 % [facility] Platelet mean volume (Bld) [Entitic vol] 8.1 fL 6.0 - 12.0 fL [facility] Platelets (Bld) [#/Vol] 225 10*3/uL [facility] RBC (Bld) [#/Vol] 3.73 10*6/uL Low 4.0 - 5.2 m/uL [facility] Segmented neutrophils/100 WBC (Bld) 2.60 % [facility] WBC other (Bld) [#/Vol] 5.0 B on [facility] CBC with Diffon 01-20-2024 Abs. Basophil 0.00 k/uL Normal 0.0-0.2 [facility] Comment on above: Performed By: #### P T, CP, HCG, CDP #### [facility] [address] [place], [place] [id number] International Freight Forwarder: Nehemiah Ku DO Abs.Neutrophil (Seg) 2.60 k/uL Normal 1.3-9.1 [facility] Comment on above: Performed By: #### P T, CP, HCG, CDP #### [facility] [place] [address] International Freight Forwarder: Nehemiah Ku DO Basophils/100 WBC (Bld) 0 % Normal 0-2 M [facility] Comment on above: Performed By: #### P T, CP, HCG, CDP #### [facility] [address] [place], [place] [address] [address] International Freight Forwarder: Nehemiah Ku DO Eosinophils (Bld) [#/Vol] 0.20 10*3/uL Normal 0.0-0.4 [facility] Comment on above: Performed By: #### P T, CP, HCG, CDP #### [facility] [address] [place] [id number] [employer] Freight Forwarder: Nehemiah Ku DO Eosinophils/100 WBC (Bld) 4 % Normal 0-4 [facility] Comment on above: Performed By: #### P T, CP, HCG, CDP #### [facility] [address] [place] [id number] [employer]ight Forwarder: Nehemiah Ku DO Erythrocyte distribution width (RBC) [Ratio] 12.4 % Normal 11.5-14.9 [facility] Comment on above: Performed By: #### P T, CP, HCG, CDP #### [facility] [address] [place] [id number] [employer] Forwarder: Nehemiah Ku DO Hematocrit (Bld) [Volume fraction] 35.4 % Low 36-46 [facility] Comment on above: Performed By: #### P T, CP, HCG, CDP #### [facility] [address] [place] [id number] [employer] Forwarder: Nehemiah Ku DO Hemoglobin (Bld) [Mass/Vol] 12.1 g/dL Normal 12.0-16.0 [facility] Comment on above: Performed By: #### P T, CP, HCG, CDP #### [facility] [address] [place], [place] [address] [place] [address] [employer] Forwarder: Nehemiah Ku DO Lymphocytes (Bld) [#/Vol] 1.70 10*3/uL Normal 1.0-4.8 [facility] Comment on above: Performed By: #### P T, CP, HCG, CDP #### [facility] [place] [address] [employer] Forwarder: Nehemiah Ku DO Lymphocytes/100 WBC (Bld) 33 % Normal 24-44 [facility] Comment on above: Performed By: #### P T, CP, HCG, CDP #### [facility] [address] [place] [id number] [employer] Forwarder: Nehemiah Ku DO MCH (RBC) [Entitic mass] 32.5 pg Normal 26-34 [facility] Comment on above: Performed By: #### P T, CP, HCG, CDP #### [facility] [address] [place] [id number] [employer] Forwarder: Nehemiah Ku DO MCHC (RBC) [Mass/Vol] 34.3 g/dL Normal 31-37 [facility] Comment on above: Performed By: #### P T, CP, HCG, CDP #### [facility] [address] [place] [id number] [employer] Forwarder: Nehemiah Ku DO MCV (RBC) [Entitic vol] 94.9 fL Normal 80-100 [facility] Comment on above: Performed By: #### P T, CP, HCG, CDP #### [facility] [address] [place] [address] [employer] Forwarder: Nehemiah Ku DO Monocytes (Bld) [#/Vol] 0.50 10*3/uL Normal 0.1-1.3 [facility] Comment on above: Performed By: #### P T, CP, HCG, CDP #### [facility] [address] [place] [address] [employer] Forwarder: Nehemiah Ku DO Monocytes/100 WBC (Bld) 10 % High 1-7 [facility] Comment on above: Performed By: #### P T, CP, HCG, CDP #### [facility] [address] [place] [address] [employer] Forwarder: Nehemiah Ku DO Neutrophil (Seg) 53 % Normal 36-66 [facility] Comment on above: Performed By: #### P T, CP, HCG, CDP #### [facility] [address] [place] [address] [employer] Forwarder: Nehemiah Ku DO Platelet mean volume (Bld) [Entitic vol] 8.1 fL Normal 6.0-12.0 [facility] Comment on above: Performed By: #### P T, CP, HCG, CDP #### [facility] [place] [address] [employer] Forwarder: Nehemiah Ku DO Platelets (Bld) [#/Vol] 225 10*3/uL Normal 150-450 [facility] Comment on above: Performed By: #### P T, CP, HCG, CDP #### [facility] [place] [address] [employer] Forwarder: Nehemiah Ku DO RBC (Bld) [#/Vol] 3.73 10*6/uL Low 4.0-5.2 [facility] Comment on above: Performed By: #### P T, CP, HCG, CDP #### [facility] [place] [address] [employer] Forwarder: Nehemiah Ku DO WBC (Bld) [#/Vol] 5.0 10*3/uL Normal 3.5-11.0 [facility] Comment on above: Performed By: #### P T, CP, HCG, CDP #### [facility] [place] [address] [employer] Fre[employer] Forwarder: Nehemiah Ku DO CT CERVICAL SPINE WO [...] Trae Chavez MD 01/20/24 Final result Normal [facility] CT HEAD WO CONTRASTon 2023 CT HEAD [...] Trae Chavez MD 01/20/24 Final result Normal [facility] Comp Metabolic Profon 2023 Albumin [Mass/Vol] 3.8 g/dL Normal 3.5-5.2 [facility] Comment on above: Performed By: #### P T, CP, HCG, CDP #### [facility] [address] [facility] [place] [address] [employer] Forwarder: Nehemiah Ku DO Alkaline Phos 69 U/L Normal 35-104 [facility] Comment on above: Performed By: #### P T, CP, HCG, CDP #### [facility] [address] [facility] [place] [address] [employer] Forwarder: Nehemiah Ku DO ALT [Catalytic activity/Vol] 28 U/L Normal 10-35 [facility] Comment on above: Performed By: #### P T, CP, HCG, CDP #### [facility] [address] [facility] [place] [address] [employer] Forwarder: Nehemiah Ku DO Anion gap [Moles/Vol] 10 mmol/L Normal 9-16 [facility] Comment on above: Performed By: #### P T, CP, HCG, CDP #### [facility] [address] [place] [address] [employer] Forwarder: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
== END 2024-12-05 11:23 | disposition home or self-care (01) ==
LOC: LAB 11:24
PROVIDERS: PCP Internal Medicine; Visit Provider Nurse Practitioner Family
DX: L29.9 Pruritus, unspecified (principal); Z13.1 Encounter for screening for diabetes mellitus
CPT/HCPCS: 36415; 80076; 82239; 83036; 84443; 85025; 86803

== ENCOUNTER 2024-12-13 14:37 | Outpatient (REF) | payer OTHER, SELFPAY ==
--- OUTSIDE RECORDS SUMMARY | 2024-12-13 14:55 | XMS_ITS | CCD ---
Author Organization [facility] Care Team Providers Care Pull Worker Name Role Phone REQUEST, DR NONE LISTED Primary Care Unavaila romy SALES ., DR BRIONES Attending Unavailable MÓNICA ., DR BRIONES Consulting Unavailable MÓNICA ., DR BRIONES Admitting RAKESH Barnett Primary Care UnavailDOC Oneill Attending Unavailabl e Unavailable Primary Care Provider Miguel Shepherd MD, Rakesh Primary Care Provider ANALI SALES Attending Unavailable MÓNICA, ANALI Attending Unavailable MILKA PATEL Attending Unavailable MÓNICA, ANALI Attending Unavailable JORGEMILKA MOON Attending Unavailable MÓNICA, ANALI Attending Unavailable MÓNICA, ANALI Attending Unavailable JORGE, MILKA Attending Unavailable JORGE MILKA Referring Unavailable ANALI SALES Attending Unavailable Medications Current [...] 90 tablet 6 12/19/2023 Active Start: 12-19-2023 End: 12-13-2024 take 1 tablet by mouth once daily citalopram (CeleXA) 10 MG tablet Indications: Anxiety, generalized TAKE 1 TABLET BY MOUTH DAILY 90 tablet 6 12/19/2023 12/13/2024 Discontinued (Therapy completed) Start: 12-16-2022 take 1 tablet by jose th once daily citalopram (CeleXA) 20 MG tablet Indications: Anxiety, generalized (CMS/HCC) TAKE ONE TABLET BY MOUTH DAILY 90 tablet 6 12/16/2022 Active Start: 12-16-2022 take 1 tablet by jose th once daily citalopram (CeleXA) 10 MG tablet Indications: Anxiety, generalized (CMS/HCC) TAKE ONE TABLET BY MOUTH DAILY 90 tablet 6 12/16/2022 Active End: 12-13-2024 take 2 tablets by mouth in the morning citalopram (CeleXA) 10 MG tablet Take 20 mg by mouth in the morning. 12/13/2024 Discontinued (Therapy completed) magnesium oxide 400 mg oral tablet (2 [...] polysaccharide iron complex 391 mg oral capsule (5 sources) Start: 12-05-2024 End: 01-04-2025 take 1 capsule by mouth once daily iron polysaccharides (ProFe) 391.3 (180 Fe) MG capsule Indications: Anemia during in third trimester ([facility]) Take 1 capsule (391.3 mg) by mouth [...] vagina] 07-16-2024 Episodic Other female genital disorders (20 sources) H/O: premature delivery; Translations: [Personal history of pre-term labor] Onset: 10-17-2024 10-17-2024 Episodic Other inflammatory condition of skin (2 sources) Pruritus, unspecified; Translations: [Unspecified pruritic disorder] 12-05-2024 Episodic Other and delivery including normal (20 sources) Encounter for supervision of normal , [...] [Tobacco use] 11-20-2024 Episodic Residual codes; unclassified (4 sources) Gestation period, 35 weeks; Translations: [35 [...] Range Facility Urinalysis macro (dipstick) panel (U)on 12-13-2024 Bilirubin, UA Negative Negative - 4(70) +++ mg/dL [facility] Blood, UA Negative Negative - 50 Fahad/mcL [facility] Clarity, UA Clear [facility] re Color, UA Yellow [facility] e Glucose, UA Negative Negative - 1999(110) ++++ mg/dL [facility] Interpretation and review of laboratory results Abnormal [facility] Ketones, UA Negative Negative - 160(16) ++++ mg/dL [facility] Leukocytes, UA 2+ Negative - 500+++ Carlos/mcL [facility] Nitrite, UA Negative Negative - Positive [facility] pH, UA 6 5 - 9 [facility] e Protein, UA Negative Negative - 1999(20) ++++ mg/dL [facility] Spec Grav, UA 1.01 1 - 1.03 [facility] Urobilinogen, UA 1.0 0.2 - 12 mg/dL [facility] Health[facility] e MLR HEMOGLOBIN A1Con 025 Glucose [Mass/Vol] 100 mg/dL [facility]althcare HbA1c (Bld) [Mass fraction] 5.1 % 4.5 - 6.2 % [facility] Comment on above: ADA RECOMMENDED LIMI T 4.0 - 6.0 ADA THERAPEUTIC TARGET < 7.0 ACTION SUGGESTED > 7.0 [facility] FOLLOW UP TRANSABDOMIN AL APPROACHon 12-05-2024 US OB FOLLOW UP TRANSABDOMINAL APPROACH FINDINGS: Comparison made with prior examination of August 20, 2024. A single, live intrauterine is present with normal cardiac rate of 141 beats per minute. Normal activity and amniotic fluid volume. Amniotic fluid index is 19.0 cm. Morphology is grossly normal. Cervix obscured from positioning. The current sonographic age is 35 weeks and 3 days, based on the following measurements: BPD 8.9cm ( 35 weeks, 5 days) Head Circumference 32.3cm ( 36 weeks, 3 days) Abdominal Circumference 31.7cm (35 weeks, 4 days) Femur Length 6.6 cm (34 weeks,0 days) Presentation Cephalic Weight (g) by Percentile 43.5% * These measurements result in an estimated date of delivery of January 06, 2025 The current estimated weight is 2633 grams ( 5 pound,13 ounces). IMPRESSION: 1. Single, live intrauterine , current sonographic age of 35 weeks and 3 days, with an estimated date of delivery of January 06, 2025. 2. On the August 20, 2024 examination delivery at that time was January 07, 2025 and weight was 58.3% * Estimated Weight (g) by Percentile is based upon an accurate estimated age based on last menstrual period. TRANSCRIBED BY: ELECTRONICALLY SIGNED BY: Teja Merino MD Normal Not Available Comment on above: Order Comment: US OB SCAN FOR GROWTH Estimated Date of Delivery: 01/06/25 Gestational Age as of 11/20/2024: 33w2d Urinalysis macro (dipstick) panel (U)on 12-05-2024 Bilirubin, UA Negative Negative - 4(70) +++ mg/dL [facility] Blood, UA Negative Negative - 50 Fahad/mcL [facility] Clarity, UA Clear [facility] re Color, UA Yellow [facility] Glucose, UA Negative Negative - 2000(110) ++++ mg/dL [facility] Interpretation and review of laboratory results Normal [facility] Ketones, UA Negative Negative - 160(16) ++++ mg/dL [facility] Leukocytes, UA Negative Negative - 500+++ Carlos/mcL [facility] Nitrite, UA Negative Negative - Positive [facility] pH, UA 7 5 - 9 [facility] Protein, UA Negative Negative - 1999(20) ++++ mg/dL [facility] Spec Grav, UA 1.01 1 - 1.03 [facility] Urobilinogen, UA 1.0 0.2 - 12 mg/dL [facility] Healthcar e Urinalysis macro (dipstick) panel (U)on 11-20-2024 Bilirubin, UA Negative Negative - 4(70) +++ mg/dL [facility] Healthcare Blood, UA Negative Negative - 50 Fahad/mcL [facility] Healthcare Clarity, UA Clear [facility] re Color, UA Yellow [facility] Glucose, UA Negative Negative - 1999(110) ++++ mg/dL [facility] Interpretation and review of laboratory results Normal [facility] Ketones, UA Negative Negative - 160(16) ++++ mg/dL [facility] Leukocytes, UA Negative Negative - 500+++ Carlos/mcL [facility] Healthcare Nitrite, UA Negative Negative - Positive [facility] pH, UA 7 5 - 9 [facility] Healthcar e Protein, UA Negative Negative - 1999(20) ++++ mg/dL [facility] Healthcare Spec Grav, UA 1.02 1 - 1.03 [facility] care Urobilinogen, UA 1.0 0.2 - 12 mg/dL [facility] Urinalysis macro (dipstick) panel (U)on 11-06-2024 Bilirubin, UA Negative Negative - 4(70) +++ mg/dL [facility] Blood, UA Negative Negative - 50 Fahad/mcL [facility] Healthcare Clarity, UA Clear [facility] re Color, UA Yellow [facility] Health[facility] e Glucose, UA Negative Negative - 1999(110) ++++ mg/dL [facility] Interpretation and review of laboratory results Abnormal [facility] Ketones, UA Negative Negative - 160(16) ++++ mg/dL [facility] Healthcare Leukocytes, UA Moderate Negative - 500+++ Carlos/mcL [facility] Healthcare Nitrite, UA Negative Negative - Positive [facility] pH, UA 6.5 5 - 9 [facility] Protein, UA Negative Negative - 1999(20) ++++ mg/dL [facility] Healthcare Spec Grav, UA 1.01 1 - 1.03 [facility] care Urobilinogen, UA 0.2 0.2 - 12 mg/dL [facility] UA (CLEAN/CATCH) HOT PACKER/ANIBAL RO IF IND.on 10-23-2024 BILIRUBIN URINE Negative NEGATIVE [facility] BLOOD URINE Negative NEGATIVE [facility] [...] NEGATIVE [facility] NITRITE URINE Negative NEGATIVE [facility] pH (U) 7.5 [pH] 5.0 - 9.0 [facility] PROTEIN URINE Negative NEG/TRACE mg/dL [facility] SPECIFIC GRAVITY URINE 1.015 1.005 - 1.025 [facility] URINE MICROSCOPIC INDICATED YES [facility] UROBILINOGEN URINE 0.2 EU/dL 0.2 - 1.0 EU/dL [facility] US OB CERVICAL LENGTHon 10-09 [place] [address] Ultrasound Report Signed Patient: POOJA VALENCIA MR#: [id number] : 1990 Acct:[id number] Age/Sex: 33 / F ADM Date: Loc: [facility] [address]: Anali Sales D.O. Ordering Physician: Anali Sales D.O. Date of Service: 10/23/24 Procedure(s): US OB cervical length Accession Number(s): [id number] cc: Anali Slaes D.O.; RAKESH SHEPHERD [place] [id number] Patient Name: POOJA VALENCIA MRN: [facility]:[id number] date: 1990 Sex: F Assigned Patient Location: [facility] Current Patient Location: [facility] Accession/Order Number: [id number] Exam Date: 10/23/2024 20:48 Report Date: 10/23/2024 [...] Ruiz M.D. 10/23/2024 8:53 PM Dictation Location: [place] [address] Electronically authenticated by: [id number] Y Date: 10/23/2024 20:53 Dictated By: Choco Ruiz M.D. Signed By: 10/23/242055 DD/ 52 TD/TT: Railroad Worker: [facility] Radiology, Radiologist, MD - 10/23/2024 [place] [address] Ultrasound Report Signed Patient: POOJA VALENCIA MR#: [id number] : 1990 Acct:[id number] Age/Sex: 33 / F ADM Date: Loc: [facility] 254- Attending Dr: Anali Sales D.O. Ordering Physician: Anali Sales D.O. Date of Service: 10/23/24 Procedure(s): US OB cervical length Accession Number(s): [id number] cc: Anali Sales D.O.; RAKESH SHEPHERD [place] [phone] Patient Name: POOJA VALENCIA MRN: [facility]:[id number] date: 1990 Sex: F Assigned Patient Location: [facility] Current Patient Location: [facility] Accession/Order Number: [id number] Exam Date: 10/23/2024 20:48 Report Date: 10/23/2024 [...] Ruiz M.D. 10/23/2024 8:53 PM Dictation Location: [place] [address] Electronically authenticated by: [id number] Y Date: 10/23/2024 20:53 Dictated By: Choco Ruiz M.D. Signed By: 10/23/242055 DD/ 52 TD/TT: Railroad Worker: [facility] Radiology Study observation (narrative) [facility] OB CERVICAL LENGTHOrdered By: Radiologist Radiology on 10-23-2024 [facility] Work Phone: RECURRENT VAGINITIS (HTRX)on 10-18-2024 ATOPOBIUM VAGINAE 18.848 Abnormal [facility] althcare ATOPOBIUM VAGINAE Detected Abnormal [facility] BVAB 2,3 (BACTERIAL VAGINOSIS ASSOCIATED BACTERIA 2, 3); MOBILUNCUS SPP 11.617 Abnormal [facility] BVAB 2,3 (BACTERIAL VAGINOSIS ASSOCIATED BACTERIA 2, 3); MOBILUNCUS SPP Detected Abnormal [facility] SABRINA ALBICANS, PARAPSILOSIS, TROPICALIS 0 [facility] SABRINA ALBICANS, PARAPSILOSIS, TROPICALIS Not detected [facility] SABRINA GLABRATA 0 [facility] SABRINA GLABRATA Not detected [facility] SABRINA KRUSEI 0 [facility] Healt hcare SABRINA KRUSEI Not detected [facility] Hea lthcare CHLAMYDIA TRACHOMATIS 0 [facility] CHLAMYDIA TRACHOMATIS Not detected N [facility] ERMB, C; MEFA 19.21 Abnormal [facility] care ERMB, C; MEFA Detected Abnormal [facility] care GARDNERELLA VAGINALIS 18.356 Abnormal [facility] GARDNERELLA VAGINALIS Detected Abnormal [facility] Interpretation and review of laboratory results Abnormal [facility] MEGASPHAERA (TYPES 1, 2) 0 [facility] MEGASPHAERA (TYPES 1, 2) Not detected [facility] MYCOPLASMA GENITALIUM 0 [facility] MYCOPLASMA GENITALIUM Not detected N [facility] NEISSERIA GONORRHOEAE 0 [facility] NEISSERIA GONORRHOEAE Not detected N [facility] TET B, TET M 17.573 Abnormal [facility] Healthc are TET B, TET M Detected Abnormal [facility] are TRICHOMONAS VAGINALIS 0 [facility] TRICHOMONAS VAGINALIS Not detected [facility] Urinalysis macro (dipstick) panel (U)on 10-17-2024 Bilirubin, UA Negative Negative - 4(70) +++ mg/dL [facility] Blood, UA Negative Negative - 50 Fahad/mcL [facility] Clarity, UA Clear [facility] re Color, UA Yellow [facility] Healthcar e Glucose, UA Negative Negative - 1999(110) ++++ mg/dL [facility] Interpretation and review of laboratory results Normal [facility] Ketones, UA Negative Negative - 160(16) ++++ mg/dL [facility] Leukocytes, UA Negative Negative - 500+++ Carlos/mcL [facility] Nitrite, UA Negative Negative - Positive [facility] pH, UA 6 5 - 9 [facility] Healthcar e Protein, UA Negative Negative - 1999(20) ++++ mg/dL [facility] Spec Grav, UA 1.02 1 - 1.03 [facility] Urobilinogen, UA 0.2 0.2 - 12 mg/dL [facility] Urinalysis macro (dipstick) panel (U)on 09-20-2024 Bilirubin, UA Negative Negative - 4(70) +++ mg/dL [facility] Blood, UA Positive Negative - 50 Fahad/mcL [facility] Comment on above: trace Clarity, UA Clear [facility] [employer] re Color, UA Yellow [facility] [employer] [facility] e Glucose, UA Negative Negative - 1999(110) ++++ mg/dL [facility] Interpretation and review of laboratory results Normal [facility] Ketones, UA Negative Negative - 160(16) ++++ mg/dL [facility] Leukocytes, UA Positive Negative - 500+++ Carlos/mcL [facility] Comment on above: small Nitrite, UA Negative Negative - Positive [facility] pH, UA 6.5 5 - 9 [facility] [employer]IC e Protein, UA Negative Negative - 1999(20) ++++ mg/dL [facility] Spec Grav, UA 1.01 1 - 1.03 [facility] Urobilinogen, UA 0.2 0.2 - 12 mg/dL [facility] Health[facility] e US OB 14+ WEEKS ANATOMY [...] II, MD, PHD at 21-Aug-2024 08:11:05 AM [facility] Normal Not Available Comment on above: Order Comment: US OB ANATOMY SINGLE W US OB CERVICAL LENGTH Estimated Date of Delivery: 01/06/25 Gestational Age as of 07/16/2024: 15w1d Urinalysis macro (dipstick) panel (U)on 06-14-2024 Bilirubin, UA Negative Negative - 4(70) +++ mg/dL [facility] Blood, UA Positive Negative - 50 Fahad/mcL [facility] Comment on above: trace-intact Clarity, UA Clear [facility] [employer] re Color, UA Yellow [facility] Acc[employer]IC e Glucose, UA Negative Negative - 1999(110) ++++ mg/dL [facility] Interpretation and review of laboratory results Abnormal [facility] Ketones, UA Negative Negative - 160(16) ++++ mg/dL [facility] Leukocytes, UA Positive Negative - 500+++ Carlos/mcL [facility] Comment on above: large Nitrite, UA Negative Negative - Positive [facility] pH, UA 6.5 5 - 9 [facility] [employer] e Protein, UA Negative Negative - 1999(20) ++++ mg/dL [facility] Spec Grav, UA 1.02 1 - 1.03 [facility] Urobilinogen, UA 2.0 0.2 - 12 mg/dL [facility] HealthZoyi e BOX TESTon 06-12-2024 BOX TEST SENT OUT [employer] [facility] BOX1 [facility] HealthZoyi e BOX2 06/12/2024 [facility] AccurIC [facility] UNITY BOX [facility] AccurIC e PAP IG, APT HPV RFX 16/18,45 on 06-05-2024 HPV APTIMA Positive Abnormal Negative [facility] Comment on above: This nucleic acid am plification test detects fourteen high- risk HPV types (16,18,31,33,35,39,45,51,52,56,58,59,66,68) without differentiation. Interpretation and review of laboratory results Abnormal [facility] PAP IG (IMAGE GUIDED) Note . [facility] Comment on above: TESTS RESULT FLAG UN ITS REF RANGE LAB Clinician Provided Cytology Information Source.............Cervix Other.............. No. of containers..01 ThinPrep Vial DIAGNOSIS: 01 NEGATIVE FOR INTRAEPITHELIAL LESION OR MALIGNANCY. Specimen adequacy: 01 Satisfactory for evaluation. Endocervical and/or squamous metaplastic cells (endocervical component) are present. Performed by: Carmen Jones, Plate Drying Machine Tender ([facility]) . 01 Note: Note 01 The Pap [...] High,A-Abnormal,AA-Critical Abnormal Performed at: 01 WB [facility] [address] [id number] Rhina Armstrong MD, TB HPV GENOTYPE 16 Negative Negative [facility] HPV GENOTYPE 18,45 Negative Negative [facility] Comment on above: Performed at: WB - L [facility] [address] [id number] Hand Stitcher: Rhina Armstrong MD, Phone: [phone] Performed at: =G - [facility] [address] [id number] Hand Stitcher: Rhina Armstrong MD, Phone: [phone] SPATULA-ALONE CERVIX [facility] HCG ( test) Ql (U)o n 05-31-2024 Interpretation and review of laboratory results Abnormal [facility] Preg Test, Ur Positive Negative [facility] US OB TRANSVAGINALon [address] [place] [address] Ultrasound Report Signed Patient: POOJA VALENCIA MR#: [id number] : 1990 Acct:[id number] Age/Sex: 33 / F ADM Date: 05/31/24 Loc: US Attending Dr: Anali Sales D.O. Ordering Physician: Anali Sales D.O. Date of Service: 05/31/24 Procedure(s): US OB transvaginal Accession Number(s): [id number] cc: Anali Sales D.O.; RAKESH SHEPHERD [place] [phone] Patient Name: POOJA VALENCIA MRN: [id number] date: 1990 Sex: F Assigned Patient Location: US Current Patient Location: US Accession/Order Number: [id number] Exam Date: 05/31/2024 14:04 Report Date: 05/31/2024 [...] Mckenzie Alvarez M.D.05/31/2024 2:09 PM Dictation Location: [place] [address] Electronically authenticated by: [id number] Y Date: 05/31/2024 14:09 Dictated By: Mckenzie Alvarez M.D. Signed By: 05/31/24 1412 DD/ 1409 TD/TT: Railroad Worker: [facility] Radiology, Radiologist, - 05/31/2024 [place] [address] Ultrasound Report Signed Patient: POOJA VALENCIA MR#: [id number] : 1990 Acct:[id number] Age/Sex: 33 / F ADM Date: 05/31/24 Loc: US Attending Dr: Anali Sales D.O. Ordering Physician: Anali Sales D.O. Date of Service: 05/31/24 Procedure(s): US OB transvaginal Accession Number(s): [id number] cc: Anali Sales D.O.; RAKESH SHEPHERD [address] [address] Patient Name: POOJA VALENCIA MRN: [id number] date: 1990 Sex: F Assigned Patient Location: Current Patient Location: US Accession/Order Number: [id number] Exam Date: 05/31/2024 14:04 Report Date: 05/31/2024 [...] Mckenzie Alvarez M.D.05/31/2024 2:09 PM Dictation Location: [place] [address] Electronically authenticated by: [id number] Y Date: 05/31/2024 14:09 Dictated By: Mckenzie Alvarez M.D. Signed By: 05/31/24 1412 DD/ 1409 TD/TT: Railroad Worker: [facility] Radiology Study observation (narrative) ALBERTO [facility] US OB TRANSVAGINALOrdered By : Radiologist Radiology on 05-31-2024 [facility] [employer] Work Phone: Urinalysis macro (dipstick) panel (U)on 05-31-2024 Bilirubin, UA Negative Negative - 4(70) +++ mg/dL [facility] Blood, UA Negative Negative - 50 Fahad/mcL [facility] Clarity, UA Clear [facility] re Color, UA Yellow [facility] Glucose, UA Negative Negative - 1999(110) ++++ mg/dL [facility] Interpretation and review of laboratory results Abnormal [facility] Ketones, UA Negative Negative - 160(16) ++++ mg/dL [facility] Leukocytes, UA Moderate Negative - 500+++ Carlos/mcL [facility] Nitrite, UA Negative Negative - Positive [facility] pH, UA 7 5 - 9 [facility] Healthcar e Protein, UA Negative Negative - 1999(20) ++++ mg/dL [facility] Spec Grav, UA 1.02 1 - 1.03 [facility] care Urobilinogen, UA 1.0 0.2 - 12 mg/dL [facility] PREG QUANT HCGon 05-14-2 025 HCG QUANTITATIVE 48315 mIU/mL [facility] Hea lthcare Comment on above: 5-50 0.2-1 WEEK 50-500 1-2 WEEKS 100-5,000 2-3 WEEKS 500-10,000 3-4 WEEKS 1,000-50,000 4-5 WEEKS 10,000-100,000 5-6 WEEKS 15,000-200,000 6-8 WEEKS 10,000-100,000 2-3 MONTHS [facility] PREG QUANT HCGon 02-21-2 024 HCG QUANTITATIVE 6 mIU/mL [facility] Hea lthcare Comment on above: 5-50 0.2-1 WEEK 50-500 1-2 WEEKS 100-5,000 2-3 WEEKS 500-10,000 3-4 WEEKS 1,000-50,000 4-5 WEEKS 10,000-100,000 5-6 WEEKS 15,000-200,000 6-8 WEEKS 10,000-100,000 2-3 MONTHS [facility] Healthcar e TBH PREG QUANT HCGon -24-2 024 HCG QUANTITATIVE 381 mIU/mL [facility] Comment on above: 5-50 0.2-1 WEEK 50-500 1-2 WEEKS 100-5,000 2-3 WEEKS 500-10,000 3-4 WEEKS 1,000-50,000 4-5 WEEKS 10,000-100,000 5-6 WEEKS 15,000-200,000 6-8 WEEKS 10,000-100,000 2-3 [facility] TBH PREG QUANT HCGon 18-2 024 HCG QUANTITATIVE 1255 mIU/mL [facility] Comment on above: 5-50 0.2-1 WEEK 50-500 1-2 WEEKS 100-5,000 2-3 WEEKS 500-10,000 3-4 WEEKS 1,000-50,000 4-5 WEEKS 10,000-100,000 5-6 WEEKS 15,000-200,000 6-8 WEEKS 10,000-100,000 2-3 MONTHS [facility] e TBH PREG QUANT HCGon 16-2 024 HCG QUANTITATIVE 1395 mIU/mL [facility] Comment on above: 5-50 0.2-1 WEEK 50-500 1-2 WEEKS 100-5,000 2-3 WEEKS 500-10,000 3-4 WEEKS 1,000-50,000 4-5 WEEKS 10,000-100,000 5-6 WEEKS 15,000-200,000 6-8 WEEKS 10,000-100,000 2-3 MONTHS [facility] TBH PREG QUANT HCGon 10-14-2 024 HCG QUANTITATIVE 1276 mIU/mL [facility] ltare Comment on above: 5-50 0.2-1 WEEK 50-500 1-2 WEEKS 100-5,000 2-3 WEEKS 500-10,000 3-4 WEEKS 1,000-50,000 4-5 WEEKS 10,000-100,000 5-6 WEEKS 15,000-200,000 6-8 WEEKS 10,000-100,000 2-3 MONTHS [facility] e CBC with Auto Differentialon 01-20-2024 Basophils (Bld) [#/Vol] 0.00 10*3/uL [facility] Basophils/100 WBC (Bld) 0 % 0 - 2 % B on [facility] [employer] Eosinophils (Bld) [#/Vol] 0.20 10*3/uL [facility] Eosinophils/100 WBC (Bld) 4 % 0 - 4 % [facility] Erythrocyte distribution width (RBC) [Ratio] 12.4 % 11.5 - 14.9 % [facility] Hematocrit (Bld) [Volume fraction] 35.4 % Low 36 - 46 % [facility] Hemoglobin (Bld) [Mass/Vol] 12.1 g/dL 12.0 - 16.0 g/dL [facility] Interpretation and review of laboratory results Abnormal [facility] Lymphocytes/100 WBC (Bld) 33 % 24 - 44 % [facility] Lymphocytes/100 WBC (Bld) 1.70 % [facility] MCH (RBC) [Entitic mass] 32.5 pg 26 - 34 pg [facility] MCHC (RBC) [Mass/Vol] 34.3 g/dL 31 - 37 g/dL B on [facility] MCV (RBC) [Entitic vol] 94.9 fL 80 - 100 fL [facility] Monocytes/100 WBC (Bld) 10 % High 1 - 7 % B on [facility] Monocytes/100 WBC (Bld) 0.50 % B on [facility] Neutrophils/100 WBC (Bld) 53 % 36 - 66 % [facility] Platelet mean volume (Bld) [Entitic vol] 8.1 fL 6.0 - 12.0 fL [facility] Platelets (Bld) [#/Vol] 225 10*3/uL [facility] RBC (Bld) [#/Vol] 3.73 10*6/uL Low 4.0 - 5.2 m/uL [facility] Segmented neutrophils/100 WBC (Bld) 2.60 % [facility] WBC other (Bld) [#/Vol] 5.0 B on [facility] CBC with Diffon 01-20-2024 Abs. Basophil 0.00 k/uL Normal 0.0-0.2 [facility] Comment on above: Performed By: #### P T, CP, HCG, CDP #### [facility] [address] [place] [address] Hand Stitcher: Nehemiah Ku DO Abs.Neutrophil (Seg) 2.60 k/uL Normal 1.3-9.1 [facility] Comment on above: Performed By: #### P T, CP, HCG, CDP #### [facility] [place] [address] Hand Stitcher: Nehemiah Ku DO Basophils/100 WBC (Bld) 0 % Normal 0-2 M [facility] Comment on above: Performed By: #### P T, CP, HCG, CDP #### [facility] [place] [address] Hand Stitcher: Nehemiah Ku DO Eosinophils (Bld) [#/Vol] 0.20 10*3/uL Normal 0.0-0.4 [facility] Comment on above: Performed By: #### P T, CP, HCG, CDP #### [facility] [address] [place] [address] Hand Stitcher: Nehemiah Ku DO Eosinophils/100 WBC (Bld) 4 % Normal 0-4 [facility] Comment on above: Performed By: #### P T, CP, HCG, CDP #### [facility] [address] [place] [address] Hand Stitcher: Nehemiah Ku DO Erythrocyte distribution width (RBC) [Ratio] 12.4 % Normal 11.5-14.9 [facility] Comment on above: Performed By: #### P T, CP, HCG, CDP #### [facility] [address] [place] [address] Hand Stitcher: Nehemiah Ku DO Hematocrit (Bld) [Volume fraction] 35.4 % Low 36-46 [facility] Comment on above: Performed By: #### P T, CP, HCG, CDP #### [facility] [address] [place] [address] Hand Stitcher: Nehemiah Ku DO Hemoglobin (Bld) [Mass/Vol] 12.1 g/dL Normal 12.0-16.0 [facility] Comment on above: Performed By: #### P T, CP, HCG, CDP #### [facility] [address] [place], [place] [address] [address] Hand Stitcher: Nehemiah Ku DO Lymphocytes (Bld) [#/Vol] 1.70 10*3/uL Normal 1.0-4.8 [facility] Comment on above: Performed By: #### P T, CP, HCG, CDP #### [facility] [address] [place] [address] Hand Stitcher: Nehemiah Ku DO Lymphocytes/100 WBC (Bld) 33 % Normal 24-44 [facility] Comment on above: Performed By: #### P T, CP, HCG, CDP #### [facility] [address] [place] [address] Hand Stitcher: Nehemiah Ku DO MCH (RBC) [Entitic mass] 32.5 pg Normal 26-34 [facility] Comment on above: Performed By: #### P T, CP, HCG, CDP #### [facility] [address] [place] [address] Hand Stitcher: Nehemiah Ku DO MCHC (RBC) [Mass/Vol] 34.3 g/dL Normal 31-37 [facility] Comment on above: Performed By: #### P T, CP, HCG, CDP #### [facility] [address] [place] [address] Hand Stitcher: Nehemiah Ku DO MCV (RBC) [Entitic vol] 94.9 fL Normal 80-100 M [facility] Comment on above: Performed By: #### P T, CP, HCG, CDP #### [facility] [address] [place] [address] Hand Stitcher: Nehemiah Ku DO Monocytes (Bld) [#/Vol] 0.50 10*3/uL Normal 0.1-1.3 [facility] Comment on above: Performed By: #### P T, CP, HCG, CDP #### [facility] [address] [place] [address] Hand Stitcher: Nehemiah Ku DO Monocytes/100 WBC (Bld) 10 % High 1-7 M [facility] Comment on above: Performed By: #### P T, CP, HCG, CDP #### [facility] [place] [address] Hand Stitcher: Nehemiah Ku DO Neutrophil (Seg) 53 % Normal 36-66 [facility] Comment on above: Performed By: #### P T, CP, HCG, CDP #### [facility] [address] [place] [address] Hand Stitcher: Nehemiah Ku DO Platelet mean volume (Bld) [Entitic vol] 8.1 fL Normal 6.0-12.0 [facility] Comment on above: Performed By: #### P T, CP, HCG, CDP #### [facility] [address] [place] [address] Hand Stitcher: Nehemiah Ku DO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
== END 2024-12-13 14:38 | disposition home or self-care (01) ==
LOC: LAB 14:37
PROVIDERS: PCP Internal Medicine; Visit Provider Obstetrics & Gynecology
DX: Z34.93 Encounter for supervision of normal pregnancy, unspecified, third trimester (principal); Z3A.36 36 weeks gestation of pregnancy
CPT/HCPCS: 87081

== ENCOUNTER 2024-12-27 13:31 | Inpatient (IN) | payer OTHER, SELFPAY ==
[2024-12-27] VITALS (21 sets, daily range): BP systolic 92–140; BP diastolic 50–80; PULSE 60–82; TEMP 36.4–36.7
--- OUTSIDE RECORDS SUMMARY | 2024-12-27 13:35 | XMS_ITS | Clinical Summary ---
Author Organization [facility] Address [address], [address] [place] [address] Care Team Providers Care Special Education Secretary Name Role Phone Unavailable Primary Care Provider [...] 12/30/2021 HPV (without or with Pap) 12/30/2021 Flu vaccine (#1) 11/09/2024 04/09/2013 COVID-19 Vaccine (1 - 2023-2 5 season) 2024 DTaP/Tdap/Td vaccine (2 - Td or Tdap) [...]
--- OUTSIDE RECORDS SUMMARY | 2024-12-27 13:44 | XMS_ITS | CCD ---
Author Organization [facility] Care Team Providers Care Vtc Technician Name Role Phone REQUEST, DR NONE LISTED Primary Care Unavaila ble MÓNICA ., DR BRIONES Attending Unavailable MÓNICA ., DR BRIONES Consulting Unavailable MÓNICA ., DR BRIONES Admitting RAKESH Barnett Primary Care UnavailDOC Oneill Attending Unavailabl e Unavailable Primary Care Provider Miguel Shepherd MD, Rakesh Primary Care Provider ANALI SALES Attending Unavailable MÓNICA, ANALI Attending Unavailable JORGE, MILKA Attending Unavailable MÓNICA, ANALI Attending Unavailable JORGE, MILKA Attending Unavailable MÓNICA, ANALI Attending Unavailable MÓNICA, ANALI Attending Unavailable JORGE, MILKA Attending Unavailable JORGE, MILKA Referring Unavailable MÓNICA, ANALI Attending Unavailable MÓNICA, ANALI Attending Unavailable MÓNICA, ANALI Attending Unavailable JORGE, MILKA Attending Unavailable Medications Current Medications Medication Drug [...] tablet (20 sources) Serotonin Reuptake Inhibitor Start: 12-24-2024 take 1 tablet by mouth once daily citalopram (CeleXA) 20 MG tablet Indications: Anxiety, generalized TAKE 1 TABLET BY MOUTH DAILY 90 tablet 6 12/24/2024 Active Start: 12-19-2023 take 1 tablet by jose th once daily citalopram (CeleXA) 20 MG tablet Indications: Anxiety, generalized TAKE 1 TABLET BY MOUTH DAILY 90 tablet 6 12/19/2023 Active Start: 12-16-2022 End: 03-24-2025 take 1 tablet by mouth once daily citalopram (CeleXA) 10 MG tablet Indications: Mood disorder Take 1 tablet (10 mg) by mouth Daily 30 tablet 2 12/24/2024 03/24/2025 Active Start: 12-16-2022 take 1 tablet by jose once daily citalopram (CeleXA) 20 MG tablet Indications: Anxiety, generalized (CMS/HCC) TAKE ONE TABLET BY MOUTH DAILY 90 tablet 6 12/16/2022 Active End: 12-13-2024 take 2 tablets by mouth in the morning citalopram (CeleXA) 10 MG tablet Take 20 mg by mouth in the morning. 12/13/2024 Discontinued (Therapy completed) magnesium oxide 400 mg oral tablet (4 sources) Start: 07-16-2024 End: 08-15-2024 take 1 [...] polysaccharide iron complex 391 mg oral capsule (11 sources) Start: 12-05-2024 End: 01-04-2025 take 1 capsule by mouth once daily iron polysaccharides (ProFe) 391.3 (180 Fe) MG capsule Indications: Anemia during in third trimester ([facility]) Take 1 capsule (391.3 mg) by mouth [...] period; Translations: [Irregular menstruation, unspecified] 05-30-2024 Chronic Mood disorders (2 sources) Mood disorder; Translations: [Unspecified mood [affective] disorder] 12-24-2024 Chronic Other complications of (4 sources) Anemia of ; Translations: [Anemia complicating [...] 10-17-2024 Episodic Other inflammatory condition of skin (4 sources) Pruritus, unspecified; Translations: [Unspecified pruritic disorder] [...] of ] 11-20-2024 Episodic Residual codes; unclassified (4 sources) Nicotine-filled electronic cigarette user; Translations: [Tobacco use] 11-20-2024 Episodic Residual codes; unclassified (4 sources) Gestation period, 35 weeks; Translations: [35 weeks gestation of ] 12-05-2024 Episodic Residual codes; unclassified (2 sources) Gestation period, 37 weeks; Translations: [37 weeks gestation of ] 12-18-2024 Episodic Residual codes; unclassified (2 sources) Gestation period, 38 weeks; Translations: [38 weeks gestation of ] 12-24-2024 Episodic Sprains and strains (2 sources) Strain [...] Range Facility Urinalysis macro (dipstick) panel (U)on 12-24-2024 Bilirubin, UA Negative Negative - 4(70) +++ mg/dL [facility] Blood, UA Negative Negative - 50 Fahad/mcL [facility] Clarity, UA Clear [facility] re Color, UA Yellow [facility] Glucose, UA Negative Negative - 1999(110) ++++ mg/dL [facility] Interpretation and review of laboratory results Abnormal [facility] Ketones, UA Negative Negative - 160(16) ++++ mg/dL [facility] Leukocytes, UA Negative Negative - 500+++ Carlos/mcL [facility] Nitrite, UA Negative Negative - Positive [facility] pH, UA 6 5 - 9 [facility] e Protein, UA Negative Negative - 1999(20) ++++ mg/dL [facility] Spec Grav, UA 1.01 1 - 1.03 [facility] Urobilinogen, UA 1.0 0.2 - 12 mg/dL [facility] Urinalysis macro (dipstick) panel (U)on 12-18-2024 Bilirubin, UA Negative Negative - 4(70) +++ mg/dL [facility] Blood, UA Negative Negative - 50 Fahad/mcL [facility] Healthcare Clarity, UA Clear [facility] re Color, UA Yellow [facility] Healthcar e Glucose, UA Negative Negative - 1999(110) ++++ mg/dL [facility] Interpretation and review of laboratory results Abnormal [facility] Ketones, UA Negative Negative - 160(16) ++++ mg/dL [facility] Leukocytes, UA 3+ Negative - 500+++ Carlos/mcL [facility] Healthcare Nitrite, UA Negative Negative - Positive [facility] pH, UA 6 5 - 9 [facility] Healthcar e Protein, UA Negative Negative - 1999(20) ++++ mg/dL [facility] Spec Grav, UA 1.01 1 - 1.03 [facility] Urobilinogen, UA 1.0 0.2 - 12 mg/dL [facility] Urinalysis macro (dipstick) panel (U)on 12-13-2024 Bilirubin, UA Negative Negative - 4(70) +++ mg/dL [facility] Blood, UA Negative Negative - 50 Fahad/mcL [facility] Healthcare Clarity, UA Clear [facility] re Color, UA Yellow [facility] Health[facility] e Glucose, UA Negative Negative - 1999(110) ++++ mg/dL [facility] Interpretation and review of laboratory results Abnormal [facility] Ketones, UA Negative Negative - 160(16) ++++ mg/dL [facility] Leukocytes, UA 2+ Negative - 500+++ Carlos/mcL [facility] Healthcare Nitrite, UA Negative Negative - Positive [facility] pH, UA 6 5 - 9 [facility] Health[facility] e Protein, UA Negative Negative - 1999(20) ++++ mg/dL [facility] Spec Grav, UA 1.01 1 - 1.03 [facility] Urobilinogen, UA 1.0 0.2 - 12 mg/dL [facility] MLR HEMOGLOBIN A1Con 025 Glucose [Mass/Vol] 100 mg/dL [facility] ealthcare HbA1c (Bld) [Mass fraction] 5.1 % 4.5 - 6.2 % [facility] Comment on above: ADA RECOMMENDED LIMI T 4.0 - 6.0 ADA THERAPEUTIC TARGET < 7.0 ACTION SUGGESTED > 7.0 [facility] US OB FOLLOW UP TRANSABDOMIN AL [...] UA Negative Negative - 4(70) +++ mg/dL [facility] Blood, UA Negative Negative - 50 Fahad/mcL [facility] Clarity, UA Clear [facility]ca re Color, UA Yellow [facility] Glucose, UA Negative Negative - 2000(110) ++++ mg/dL [facility] Interpretation and review of laboratory results Normal [facility] Ketones, UA Negative Negative - 160(16) ++++ mg/dL [facility] Healthcare Leukocytes, UA Negative Negative - 500+++ Carlos/mcL [facility] Healthcare Nitrite, UA Negative Negative - Positive [facility] Healthcare pH, UA 7 5 - 9 [facility] Health[facility] e Protein, UA Negative Negative - 1999(20) ++++ mg/dL [facility] Healthcare Spec Grav, UA 1.01 1 - 1.03 [facility] care Urobilinogen, UA 1.0 0.2 - 12 mg/dL [facility] Urinalysis macro (dipstick) panel (U)on 11-20-2024 Bilirubin, UA Negative Negative - 4(70) +++ mg/dL [facility] Blood, UA Negative Negative - 50 Fahad/mcL [facility] Healthcare Clarity, UA Clear [facility] re Color, UA Yellow [facility] Health[facility] e Glucose, UA Negative Negative - 1999(110) ++++ mg/dL [facility] Interpretation and review of laboratory results Normal [facility] Ketones, UA Negative Negative - 160(16) ++++ mg/dL [facility] Leukocytes, UA Negative Negative - 500+++ Carlos/mcL [facility] Healthcare Nitrite, UA Negative Negative - Positive [facility] pH, UA 7 5 - 9 [facility] Health[facility] e Protein, UA Negative Negative - 1999(20) ++++ mg/dL [facility] Spec Grav, UA 1.02 1 - 1.03 [facility] Urobilinogen, UA 1.0 0.2 - 12 mg/dL [facility] Urinalysis macro (dipstick) panel (U)on 11-06-2024 Bilirubin, UA Negative Negative - 4(70) +++ mg/dL [facility] Blood, UA Negative Negative - 50 Fahad/mcL [facility] Healthcare Clarity, UA Clear [facility] re Color, UA Yellow [facility] Health[facility] e Glucose, UA Negative Negative - 1999(110) ++++ mg/dL [facility] Interpretation and review of laboratory results Abnormal [facility] Ketones, UA Negative Negative - 160(16) ++++ mg/dL [facility] Healthcare Leukocytes, UA Moderate Negative - 500+++ Carlos/mcL [facility] Nitrite, UA Negative Negative - Positive [facility] pH, UA 6.5 5 - 9 [facility] Protein, UA Negative Negative - 1999(20) ++++ mg/dL [facility] Spec Grav, UA 1.01 1 - 1.03 [facility] Urobilinogen, UA 0.2 0.2 - 12 mg/dL [facility] TBH UA (CLEAN/CATCH) EVAPORATOR HELPER/ANIBAL RO IF IND.on 10-23-2024 BILIRUBIN URINE Negative NEGATIVE [facility] BLOOD URINE Negative NEGATIVE [facility] re Clarity (U) CLEAR CLEAR [facility] re Color (U) LT. YELLOW YELLOW [facility] GLUCOSE URINE UA Negative NEGATIVE mg/dL [facility] Interpretation and review of laboratory results Abnormal [facility] Ketones Ql (U) 15 mg/dL Abnormal NEGATIVE [facility] Leukocyte esterase Test strip Ql (U) TRACE Abnormal NEGATIVE [facility] NITRITE URINE Negative NEGATIVE [facility] pH (U) 7.5 [pH] 5.0 - 9.0 [facility] PROTEIN URINE Negative NEG/TRACE mg/dL [facility] SPECIFIC GRAVITY URINE 1.015 1.005 - 1.025 [facility] URINE MICROSCOPIC INDICATED YES [facility] UROBILINOGEN URINE 0.2 EU/dL 0.2 - 1.0 EU/dL [facility] US OB CERVICAL LENGTHon 10-09 [place] [address] Ultrasound Report Signed Patient: POOJA VALENCIA MR#: [id number] : 1990 Acct:[id number] Age/Sex: 33 / F ADM Date: Loc: [facility] 254-[address]: Anali Sales D.O. Ordering Physician: Anali Sales D.O. Date of Service: 10/23/24 Procedure(s): US OB cervical length Accession Number(s): [id number] cc: Anali Sales D.O.; RAKESH SHEPHERD [address] [address] Patient Name: POOJA VALENCIA MRN: [id number] date: 1990 Sex: F Assigned Patient Location: [facility] Current Patient Location: [facility] Accession/Order Number: [id number] Exam Date: 10/23/2024 20:48 Report Date: 10/23/2024 [...] Ruiz M.D. 10/23/2024 8:53 PM Dictation Location: [place] [address] Electronically authenticated by: [id number] Y Date: 10/23/2024 20:53 Dictated By: Choco Ruzi M.D. Signed By: 10/23/242055 DD/ 52 TD/TT: Student Ministries Director: [facility] Radiology, Radiologist, - 10/23/2024 [place] [address] Ultrasound Report Signed Patient: POOJA VALENCIA MR#: [id number] : 1990 Acct:[id number] Age/Sex: 33 / F ADM Date: Loc: [facility] 254- Attending Dr: Anali Sales D.O. Ordering Physician: Anali Sales D.O. Date of Service: 10/23/24 Procedure(s): US OB cervical length Accession Number(s): [id number] cc: Anali Sales D.O.; RAKESH SHEPHERD [address] [address] Patient Name: POOJA VALENCIA MRN: [id number] date: 1990 Sex: F Assigned Patient Location: [facility] Current Patient Location: [facility] Accession/Order Number: [id number] Exam Date: 10/23/2024 20:48 Report Date: 10/23/2024 [...] Ruiz M.D. 10/23/2024 8:53 PM Dictation Location: [place] [address] Electronically authenticated by: [id number] Y Date: 10/23/2024 20:53 Dictated By: Choco Ruiz M.D. Signed By: 10/23/242055 DD/ 52 TD/TT: Student Ministries Director: [facility] Radiology Study observation (narrative) [facility] US OB CERVICAL LENGTHOrdered By: Radiologist Radiology on 10-23-2024 [facility] Healthcar e Work Phone: RECURRENT VAGINITIS (HTRX)on 10-18-2024 ATOPOBIUM VAGINAE 18.848 Abnormal [facility] ATOPOBIUM VAGINAE Detected Abnormal [facility] BVAB 2,3 (BACTERIAL VAGINOSIS ASSOCIATED BACTERIA 2, 3); MOBILUNCUS SPP 11.617 Abnormal [facility] BVAB 2,3 (BACTERIAL VAGINOSIS ASSOCIATED BACTERIA 2, 3); MOBILUNCUS SPP Detected Abnormal [facility] Healthcare SABRINA ALBICANS, PARAPSILOSIS, TROPICALIS 0 [facility] Healthcare SABRINA ALBICANS, PARAPSILOSIS, TROPICALIS Not detected [facility] Healthcare SABRINA GLABRATA 0 [facility] SABRINA GLABRATA Not detected [facility] SABRINA KRUSEI 0 [facility] Healt hcare SABRINA KRUSEI Not detected [facility] CHLAMYDIA TRACHOMATIS 0 [facility] Healthcare CHLAMYDIA TRACHOMATIS Not detected N [facility] Healthcare ERMB, C; MEFA 19.21 Abnormal [facility] Health care ERMB, C; MEFA Detected Abnormal [facility] care GARDNERELLA VAGINALIS 18.356 Abnormal [facility] Healthcare GARDNERELLA VAGINALIS Detected Abnormal [facility] Interpretation and review of laboratory results Abnormal [facility] MEGASPHAERA (TYPES 1, 2) 0 [facility] MEGASPHAERA (TYPES 1, 2) Not detected [facility] MYCOPLASMA GENITALIUM 0 [facility] MYCOPLASMA GENITALIUM Not detected N [facility] NEISSERIA GONORRHOEAE [address] [facility] NEISSERIA GONORRHOEAE Not detected N [facility] TET B, TET M 17.573 Abnormal [facility] Healthc are TET B, TET M Detected Abnormal [facility] are TRICHOMONAS VAGINALIS [address] [facility] TRICHOMONAS VAGINALIS Not detected [facility] Urinalysis macro (dipstick) panel (U)on 10-17-2024 Bilirubin, UA Negative Negative - 4(70) +++ mg/dL [facility] Blood, UA Negative Negative - 50 Fahad/mcL [facility] Clarity, UA Clear [facility] re Color, UA Yellow [facility] Health[facility] e Glucose, UA Negative Negative - 1999(110) ++++ mg/dL [facility] Interpretation and review of laboratory results Normal [facility] Ketones, UA Negative Negative - 160(16) ++++ mg/dL [facility] Leukocytes, UA Negative Negative - 500+++ Carlos/mcL [facility] Nitrite, UA Negative Negative - Positive [facility] pH, UA 6 5 - 9 [facility] Healthcar e Protein, UA Negative Negative - 1999(20) ++++ mg/dL [facility] Spec Grav, UA 1.02 1 - 1.03 [facility] Urobilinogen, UA 0.2 0.2 - 12 mg/dL [facility] Urinalysis macro (dipstick) panel (U)on 09-20-2024 Bilirubin, UA Negative Negative - 4(70) +++ mg/dL [facility] Blood, UA Positive Negative - 50 Fahad/mcL [facility] Comment on above: trace Clarity, UA Clear [facility] re Color, UA Yellow [facility] Glucose, UA Negative Negative - 1999(110) ++++ mg/dL [facility] Interpretation and review of laboratory results Normal [facility] Ketones, UA Negative Negative - 160(16) ++++ mg/dL [facility] Leukocytes, UA Positive Negative - 500+++ Carlos/mcL [facility] Comment on above: small Nitrite, UA Negative Negative - Positive [facility] pH, UA 6.5 5 - 9 [facility] Certalia e Protein, UA Negative Negative - 2000(20) ++++ mg/dL [facility] Spec Grav, UA 1.01 1 - 1.03 [facility] Urobilinogen, UA 0.2 0.2 - 12 mg/dL [facility] Health[facility] US OB 14+ WEEKS ANATOMY [...] II, MD, PHD at 21-Aug-2024 08:11:05 AM [facility] Normal Not Available Comment on above: Order Comment: US OB ANATOMY SINGLE W US OB CERVICAL LENGTH Estimated Date of Delivery: 01/06/25 Gestational Age as of 07/16/2024: 15w1d Urinalysis macro (dipstick) panel (U)on 06-14-2024 Bilirubin, UA Negative Negative - 4(70) +++ mg/dL [facility] Blood, UA Positive Negative - 50 Fahad/mcL [facility] Comment on above: trace-intact Clarity, UA Clear [facility] Orbeusar re Color, UA Yellow [facility] Certalia e Glucose, UA Negative Negative - 1999(110) ++++ mg/dL [facility] Interpretation and review of laboratory results Abnormal [facility] Ketones, UA Negative Negative - 160(16) ++++ mg/dL [facility] Leukocytes, UA Positive Negative - 500+++ Carlos/mcL [facility] Comment on above: large Nitrite, UA Negative Negative - Positive [facility] pH, UA 6.5 5 - 9 [facility] Certalia e Protein, UA Negative Negative - 1999(20) ++++ mg/dL [facility] Spec Grav, UA 1.02 1 - 1.03 [facility] Urobilinogen, UA 2.0 0.2 - 12 mg/dL [facility] BOX TESTon 06-12-2024 BOX TEST SENT OUT [facility] [address] [facility] [address]OX[address] 06/12/2024 [facility] Certalia e UNITY BOX [facility] Certalia e PAP IG, APT HPV RFX 16/18,45 on 06-05-2024 HPV APTIMA Positive Abnormal Negative [facility] [employer] Comment on above: This nucleic acid am plification test detects fourteen high- risk HPV types (16,18,31,33,35,39,45,51,52,56,58,59,66,68) without differentiation. Interpretation and review of laboratory results Abnormal [facility] PAP IG (IMAGE GUIDED) Note . [facility] Comment on above: TESTS RESULT FLAG UN ITS REF RANGE LAB Clinician Provided Cytology Information Source.............Cervix Other.............. No. of containers..01 ThinPrep Vial DIAGNOSIS: 01 NEGATIVE FOR INTRAEPITHELIAL LESION OR MALIGNANCY. Specimen adequacy: 01 Satisfactory for evaluation. Endocervical and/or squamous metaplastic cells (endocervical component) are present. Performed by: Carmen Jones, Buckle Attacher ([facility]) . 01 Note: Note 01 The [...] Low,>-Panic High,A-Abnormal,AA-Critical Abnormal Performed at: [address] [facility] [address] Rhina Armstrong MD, [facility] HPV GENOTYPE 16 Negative Negative [facility] HPV GENOTYPE 18,45 Negative Negative NO OR Healthcare Comment on above: Performed at: WB - [facility] [address] [id number] Director [employer]: Rhina Armstrong MD, Phone: [phone] Performed at: =G - [facility] [address] [id number] Director [employer]: Rhina Armstrong MD, Phone: [phone] [facility] CERVIX [facility] HCG ( test) Ql (U)o n 05-31-2024 Interpretation and review of laboratory results Abnormal [facility] Healthcare Preg Test, Ur Positive Negative [facility] US OB TRANSVAGINALon 025 [place] [address] Ultrasound Report Signed Patient: POOJA VALENCIA MR#: [id number] : 1990 Acct:[id number] Age/Sex: 33 / F ADM Date: 05/31/24 Loc: US Attending Dr: Anali Sales D.O. Ordering Physician: Anali Sales D.O. Date of Service: 05/31/24 Procedure(s): US OB transvaginal Accession Number(s): [id number] cc: Anali Sales D.O.; RAKESH SHEPHERD [address] [address] Patient Name: POOJA VALENCIA MRN: [id number] date: 1990 Sex: F Assigned Patient Location: US Current Patient Location: US Accession/Order Number: [id number] Exam Date: 05/31/2024 14:04 Report Date: 05/31/2024 [...] Mckenzie Alvarez M.D.05/31/2024 2:09 PM Dictation Location: [place] [address] Electronically authenticated by: [id number] Y Date: 05/31/2024 14:09 Dictated By: Mckenzie Alvarez M.D. Signed By: 05/31/24 1412 DD/ 1409 TD/TT: Student Ministries Director: [facility] Radiology, Radiologist, MD - 05/31/2024 [place] [address] Ultrasound Report Signed Patient: POOJA VALENCIA MR#: [id number] : 1990 Acct:[id number] Age/Sex: 33 / F ADM Date: 05/31/24 Loc: US Attending Dr: Anali Sales D.O. Ordering Physician: Anali Sales D.O. Date of Service: 05/31/24 Procedure(s): US OB transvaginal Accession Number(s): [id number] cc: Anali Sales D.O.; RAKESH SHEPHERD [place] [address] Patient Name: POOJA VALENCIA MRN: [id number] date: 1990 Sex: F Assigned Patient Location: US Current Patient Location: US Accession/Order Number: [id number] Exam Date: 05/31/2024 14:04 Report Date: 05/31/2024 [...] Mckenzie Alvarez M.D.05/31/2024 2:09 PM Dictation Location: [place] [address] Electronically authenticated by: [id number] Y Date: 05/31/2024 14:09 Dictated By: Mckenzie Alvarez M.D. Signed By: 05/31/24 1412 DD/ 1409 TD/TT: Student Ministries Director: ALBERTO [facility] Radiology Study observation (narrative) ALBERTO [facility] US OB TRANSVAGINALOrdered By : Radiologist Radiology on 05-31-2024 ALBERTO [facility] Work Phone: Urinalysis macro (dipstick) panel (U)on 05-31-2024 Bilirubin, UA Negative Negative - 4(70) +++ mg/dL [facility] Blood, UA Negative Negative - 50 Fahad/mcL [facility] Clarity, UA Clear [facility] Healthca re Color, UA Yellow [facility] Glucose, UA Negative Negative - 1999(110) ++++ mg/dL [facility] Interpretation and review of laboratory results Abnormal [facility] Ketones, UA Negative Negative - 160(16) ++++ mg/dL [facility] Leukocytes, UA Moderate Negative - 500+++ Carlos/mcL [facility] Nitrite, UA Negative Negative - Positive [facility] pH, UA 7 5 - 9 [facility] e Protein, UA Negative Negative - 1999(20) ++++ mg/dL [facility] Spec Grav, UA 1.02 1 - 1.03 [facility] Urobilinogen, UA 1.0 0.2 - 12 mg/dL [facility] TBH PREG QUANT HCGon 05-14- 025 HCG QUANTITATIVE 74166 [facility]IU/mL [facility] Comment on above: 5-50 0.2-1 WEEK 50-500 1-2 WEEKS 100-5,000 2-3 WEEKS 500-10,000 3-4 WEEKS 1,000-50,000 4-5 WEEKS 10,000-100,000 5-6 WEEKS 15,000-200,000 6-8 WEEKS 10,000-100,000 2-3 MONTHS [facility] e TB PREG QUANT HCGon 02-21- 024 HCG QUANTITATIVE 6 mIU/mL [facility] ltare Comment on above: 5-50 0.2-1 WEEK 50-500 1-2 WEEKS 100-5,000 2-3 WEEKS 500-10,000 3-4 WEEKS 1,000-50,000 4-5 WEEKS 10,000-100,000 5-6 WEEKS 15,000-200,000 6-8 WEEKS 10,000-100,000 2-3 [facility] TBH PREG QUANT HCGon 02-01- 024 HCG QUANTITATIVE 381 mIU/mL [facility] Hea ltare Comment on above: 5-50 0.2-1 WEEK 50-500 1-2 WEEKS 100-5,000 2-3 WEEKS 500-10,000 3-4 WEEKS 1,000-50,000 4-5 WEEKS 10,000-100,000 5-6 WEEKS 15,000-200,000 6-8 WEEKS 10,000-100,000 2-3 [facility] TBH PREG QUANT HCGon 10-18-2 024 HCG QUANTITATIVE 1255 mIU/mL [facility] ltare Comment on above: 5-50 0.2-1 WEEK 50-500 1-2 WEEKS 100-5,000 2-3 WEEKS 500-10,000 3-4 WEEKS 1,000-50,000 4-5 WEEKS 10,000-100,000 5-6 WEEKS 15,000-200,000 6-8 WEEKS 10,000-100,000 2-3 [facility] PREG QUANT HCGon 10-16-2 024 HCG QUANTITATIVE 1395 mIU/mL [facility] ltare Comment on above: 5-50 0.2-1 WEEK 50-500 1-2 WEEKS 100-5,000 2-3 WEEKS 500-10,000 3-4 WEEKS 1,000-50,000 4-5 WEEKS 10,000-100,000 5-6 WEEKS 15,000-200,000 6-8 WEEKS 10,000-100,000 2-3 MONTHS [facility] TBH PREG QUANT HCGon 10-14-2 024 HCG QUANTITATIVE 1276 mIU/mL [facility] ltare Comment on above: 5-50 0.2-1 WEEK 50-500 1-2 WEEKS 100-5,000 2-3 WEEKS 500-10,000 3-4 WEEKS 1,000-50,000 4-5 WEEKS 10,000-100,000 5-6 WEEKS 15,000-200,000 6-8 WEEKS 10,000-100,000 2-3 [facility] CBC with Auto Differentialon 01-20-2024 Basophils (Bld) [#/Vol] 0.00 10*3/uL [email or web address] Basophils/100 WBC (Bld) 0 % 0 - 2 % B [email or web address] Eosinophils (Bld) [#/Vol] 0.20 10*3/uL [facility] Eosinophils/100 WBC (Bld) 4 % 0 - 4 % [facility] Erythrocyte distribution width (RBC) [Ratio] 12.4 % 11.5 - 14.9 % [facility] [facility] Hematocrit (Bld) [Volume fraction] 35.4 % Low 36 - 46 % [facility] Hemoglobin (Bld) [Mass/Vol] 12.1 g/dL 12.0 - 16.0 g/dL [facility] Interpretation and review of laboratory results Abnormal [facility] Lymphocytes/100 WBC (Bld) 33 % 24 - 44 % [facility] Lymphocytes/100 WBC (Bld) 1.70 % [facility] MCH (RBC) [Entitic mass] 32.5 pg 26 - 34 pg [facility] MCHC (RBC) [Mass/Vol] 34.3 g/dL 31 - 37 g/dL B on [facility] MCV (RBC) [Entitic vol] 94.9 fL 80 - 100 fL [facility] Monocytes/100 WBC (Bld) 10 % High 1 - 7 % B on [facility] Monocytes/100 WBC (Bld) 0.50 % B on [facility] Neutrophils/100 WBC (Bld) 53 % 36 - 66 % [facility] Platelet mean volume (Bld) [Entitic vol] 8.1 fL 6.0 - 12.0 fL [facility] Platelets (Bld) [#/Vol] 225 10*3/uL [facility] RBC (Bld) [#/Vol] 3.73 10*6/uL Low 4.0 - 5.2 m/uL [facility] Segmented neutrophils/100 WBC (Bld) 2.60 % [facility] WBC other (Bld) [#/Vol] 5.0 B on [facility] CBC with Diffon 01-20-2024 Abs. Basophil 0.00 k/uL Normal 0.0-0.2 [facility] Comment on above: Performed By: #### P T, CP, HCG, CDP #### [facility] [address] [place] [address] Director [employer]: Nehemiah Ku DO Abs.Neutrophil (Seg) 2.60 k/uL Normal 1.3-9.1 [facility] Comment on above: Performed By: #### P T, CP, HCG, CDP #### [facility] [place] [address] Director [employer]: Nehemiah Ku DO Basophils/100 WBC (Bld) 0 % Normal 0-2 [facility] Comment on above: Performed By: #### P T, CP, HCG, CDP #### [facility] [address] [place] [address] Director [employer]: Nehemiah Ku DO Eosinophils (Bld) [#/Vol] 0.20 10*3/uL Normal 0.0-0.4 [facility] Comment on above: Performed By: #### P T, CP, HCG, CDP #### [facility] [address] [place] [address] Director [employer]: Nehemiah Ku DO Eosinophils/100 WBC (Bld) 4 % Normal 0-4 [facility] Comment on above: Performed By: #### P T, CP, HCG, CDP #### [facility] [address] [place] [address] Director [employer]: Nehemiah Ku DO Erythrocyte distribution width (RBC) [Ratio] 12.4 % Normal 11.5-14.9 [facility] Comment on above: Performed By: #### P T, CP, HCG, CDP #### [facility] [address] [place] [address] Director [employer]: Nehemiah Ku DO Hematocrit (Bld) [Volume fraction] 35.4 % Low 36-46 [facility] Comment on above: Performed By: #### P T, CP, HCG, CDP #### [facility] [place] [address] Director [employer]: Nehemiah Ku DO Hemoglobin (Bld) [Mass/Vol] 12.1 g/dL Normal 12.0-16.0 [facility] Comment on above: Performed By: #### P T, CP, HCG, CDP #### [facility] [place] [address] Director [employer]: Nehemiah Ku DO Lymphocytes (Bld) [#/Vol] 1.70 10*3/uL Normal 1.0-4.8 [facility] Comment on above: Performed By: #### P T, CP, HCG, CDP #### [facility] [address] [place], [place] [address] [address] Director [employer]: Nehemiah Ku DO Lymphocytes/100 WBC (Bld) 33 % Normal 24-44 [facility] Comment on above: Performed By: #### P T, CP, HCG, CDP #### [facility] [address] [place] [address] Director [employer]: Nehemiah Ku DO MCH (RBC) [Entitic mass] 32.5 pg Normal 26-34 [facility] Comment on above: Performed By: #### P T, CP, HCG, CDP #### [facility] [address] [place] [address] Director [employer]: Nehemiah Ku DO MCHC (RBC) [Mass/Vol] 34.3 g/dL Normal 31-37 [facility] Comment on above: Performed By: #### P T, CP, HCG, CDP #### [facility] [address] [place], [place] [address] [address] Director [employer]: Nehemiah Ku DO MCV (RBC) [Entitic vol] 94.9 fL Normal 80-100 M [facility] Comment on above: Performed By: #### P T, CP, HCG, CDP #### [facility] [address] [place] [address] Director [employer]: Nehemiah Ku DO Monocytes (Bld) [#/Vol] 0.50 10*3/uL Normal 0.1-1.3 [facility] Comment on above: Performed By: #### P T, CP, HCG, CDP #### [facility] [address] [place] [address] Director [employer]: Nehemiah Ku DO Monocytes/100 WBC (Bld) 10 % High 1-7 M [facility] Comment on above: Performed By: #### P T, CP, HCG, CDP #### [facility] [place] [address] Director [employer]: Nehemiah Ku DO Neutrophil (Seg) 53 % Normal 36-66 [facility] Comment on above: Performed By: #### P T, CP, HCG, CDP #### [facility] [place] [address] Director [employer]: Nehemiah Ku DO Platelet mean volume (Bld) [Entitic vol] 8.1 fL Normal 6.0-12.0 [facility] Comment on above: Performed By: #### P T, CP, HCG, CDP #### [facility] [place] [address] Director [employer]: Nehemiah Ku DO Platelets (Bld) [#/Vol] 225 10*3/uL Normal 150-450 [facility] Comment on above: Performed By: #### P T, CP, HCG, CDP #### [facility] [place] [address] Director [employer]: Nehemiah Ku DO RBC (Bld) [#/Vol] 3.73 10*6/uL Low 4.0-5.2 [facility] Comment on above: Performed By: #### P T, CP, HCG, CDP #### [facility] [address] [place] [address] Director [employer]: Nehemiah Ku DO WBC (Bld) [#/Vol] 5.0 10*3/uL Normal 3.5-11.0 [facility] Comment on above: Performed By: #### P T, CP, HCG, CDP #### [facility] [address] [facility] [place] [address] Director [employer]: Nehemiah Ku DO CT CERVICAL SPINE WO [...] Trae Chavez MD 01/20/24 Final result Normal [facility] CT HEAD WO CONTRASTon 2023 CT [...] Trae Chavez MD 01/20/24 Final result Normal [facility] Comp Metabolic Profon 2023 Albumin [Mass/Vol] 3.8 g/dL Normal 3.5-5.2 [facility] Comment on above: Performed By: #### P T, CP, HCG, CDP #### [facility] [address] [place] [address] Director [employer]: Nehemiah Ku DO Alkaline Phos 69 U/L Normal 35-104 [facility] Comment on above: Performed By: #### P T, CP, HCG, CDP #### [facility] [address] [place] [address] Director [employer]: Nehemiah Ku DO ALT [Catalytic activity/Vol] 28 U/L Normal 10-35 [facility] Comment on above: Performed By: #### P T, CP, HCG, CDP #### [facility] [address] [place] [address] Director [employer]: Nehemiah Ku DO Anion gap [Moles/Vol] 10 mmol/L Normal 9-16 [facility] Comment on above: Performed By: #### P T, CP, HCG, CDP #### [facility] [place] [address] Director [employer]: Nehemiah Ku DO AST [Catalytic activity/Vol] 31 U/L Normal 10-35 [facility] Comment on above: Performed By: #### P T, CP, HCG, CDP #### [facility] [place] [address] Director [employer]: Nehemiah Ku DO Bilirubin [Mass/Vol] 0.4 mg/dL Normal 0.0-1.2 [facility] Comment on above: Performed By: #### P T, CP, HCG, CDP #### [facility] [address] [place] [address] Director [employer]: Nehemiah Ku DO Calcium [Mass/Vol] 8.9 mg/dL Normal 8.6-10.4 [facility] Comment on above: Performed By: #### P T, CP, HCG, CDP #### [facility] [place] [address] Director [employer]: Fanelly, Nehemiah, DO Chloride [Moles/Vol] 108 mmol/L High 98-107 [facility] Comment on above: Performed By: #### P T, CP, HCG, CDP #### [facility] [address] [place] [address] Director [employer]: Nehemiah Ku DO CO2 [Moles/Vol] 20 mmol/L Normal 20-31 [facility] Comment on above: Performed By: #### P T, CP, HCG, CDP #### [facility] [address] [place] [address] Director [employer]: Nehemiah Ku DO Creatinine [Mass/Vol] 0.8 mg/dL Normal 0.7-1.2 [facility] Comment on above: Performed By: #### P T, CP, HCG, CDP #### [facility] [address] [facility] [place] [address] Director [employer]: Nehemiah Ku DO GFR/1.73 sq M.predicted among non-blacks MDRD (S/P/Bld) [Vol rate/Area] mL/min/{1.73_m2} Normal >60 [facility] Comment on above: Result Comment: These [...] #### P T, CP, HCG, CDP #### [facility] [address] [facility] [place] [address] Director [employer]: Nehemiah Ku DO Glucose [Mass/Vol] 91 mg/dL Normal 74-99 [facility] Comment on above: Performed By: #### P T, CP, HCG, CDP #### [facility] [address] [facility] [place] [address] Director [employer]: Nehemiah Ku DO Potassium [Moles/Vol] 3.8 mmol/L Normal 3.7-5.3 [facility] Comment on above: Result Comment: Spec imen hemolysis has exceeded the interference as defined by Dejuan. Value may be falsely increased. Suggest recollection if clinically indicated. Performed By: #### P T, CP, HCG, CDP #### [facility] [address] [facility] [place] [address] Director [employer]: Nehemiah Ku DO Protein [Mass/Vol] 6.9 g/dL Normal 6.6-8.7 [facility] Comment on above: Performed By: #### P T, CP, HCG, CDP #### [facility] [place] [address] Director [employer]: Nehemiah Ku DO Sodium [Moles/Vol] 138 mmol/L Normal 136-145 [facility] Comment on above: Performed By: #### P T, CP, HCG, CDP #### [facility] [place] [address] Director [employer]: Nehemiah Ku DO Urea nitrogen [Mass/Vol] 9 mg/dL Normal 6-20 [facility] Comment on above: Performed By: #### P T, CP, HCG, CDP #### [facility] [place] [address] Director [employer]: Nehemiah Ku DO Comprehensive Metabolic Pane cathy 01-20-2024 Albumin [Mass/Vol] 3.8 g/dL 3.5 - 5.2 g/dL [facility] ALP [Catalytic activity/Vol] 69 U/L 35 - 104 U/L [facility] ALT [Catalytic activity/Vol] 28 U/L 10 - 35 U/L [facility] Anion gap [Moles/Vol] 10 mmol/L 9 - 16 mmol/L [facility] AST [Catalytic activity/Vol] 31 U/L 10 - 35 U/L [facility] Bilirubin [Mass/Vol] 0.4 mg/dL 0.0 - 1 .2 mg/dL [facility] Calcium [Mass/Vol] 8.9 mg/dL 8.6 - 10. 4 mg/dL [facility] Chloride [Moles/Vol] 108 mmol/L High 98 - 10 7 mmol/L [facility] CO2 [Moles/Vol] 20 mmol/L 20 - 31 mmol/L [facility] Creatinine [Mass/Vol] 0.8 mg/dL 0.7 - 1.2 mg/dL [facility] Bushra Cesar Rate - PINF [facility] Comment on above: These results are [...] [Mass/Vol] 91 mg/dL 74 - 99 mg/dL [facility] Interpretation and review of laboratory results Abnormal [facility] Potassium [Moles/Vol] 3.8 mmol/L 3.7 - 5.3 mmol/L [facility] Comment on above: Specimen hemolysis h as exceeded the interference as defined by Dejuan. Value may be falsely increased. Suggest recollection if clinically indicated. Protein [Mass/Vol] 6.9 g/dL 6.6 - 8.7 g/dL [facility] Sodium [Moles/Vol] 138 mmol/L 136 - 145 mmol/L [facility] Urea nitrogen [Mass/Vol] 9 mg/dL 6 - 20 mg/dL [facility] HCG Qualitative, Serumon HCG ( test) Ql Positive Abnormal NEGATIVE B on [facility] Comment on above: If HCG results do no t concur with clinical observations, additional testing to confirm result is recommended. This test is not labeled for use as a tumor marker. Interpretation and review of laboratory results Abnormal [facility] HCG Screen, Bloodon 01-20-20 24 HCG Screen, Blood Positive Abnormal NEG [facility] Comment on above: Result Comment: If H CG results do not concur with clinical observations, additional testing to confirm result is recommended. This test is not labeled for use as a tumor marker. Performed By: #### P T, CP, HCG, CDP #### [facility] [address] [facility] [place] [address] Director [employer]: Nehemiah Ku DO PTon 01-20-2024 INR Coag (PPP) [Relative time] 1.0 {INR} Normal [facility] Comment on above: Result Comment: Therapeutic Range: Moderate Anticoagulant Intensity: INR = 2.0-3.0 High Anticoagulant Intensity: INR = 2.5-3.5 Performed By: #### P T, CP, HCG, CDP #### [facility] [address] [facility] [place] [address] Director [employer]: Nehemiah Ku DO PT Coag (PPP) [Time] 13.7 s Normal 11.8-14.6 [facility] Comment on above: Performed By: #### P T, CP, HCG, CDP #### [facility] [address] [facility] [place] [address] Director [employer]: Nehemiah Ku DO Protime-INRon 01-20-2024 INR Coag (PPP) [Relative time] 1.0 {INR} [facility] Comment on above: Therapeutic Range: Moderate Anticoagulant Intensity: INR = 2.0-3.0 High Anticoagulant Intensity: INR = 2.5-3.5 PT Coag (PPP) [Time] 13.7 s [facility] XR ELBOW RIGHT (MIN 3 [...] Trae Chavez MD 01/20/24 Final result Normal [facility] XR Elbow - right 3 Viewson 1 1. Mild soft tissue edema at the olecranon. 2. No acute fracture or dislocation. [facility] RIS CONSOLIDATED EXAMINATION: THREE XRAY [...] Mild soft tissue swelling overlying the olecranon. [facility] CONSOLIDATED Trae Chavez MD - 01/20/2024 EXAMINATION: [...] olecranon. 2. No acute fracture or dislocation. [facility] Radiology Study observation (narrative) [facility] IGP,APTIMA HPV,AGE GDLNon AGE GDLN ACOG TESTING Note . [facility] Comment on above: TESTS RESULT FLAG UN ITS REF RANGE LAB Clinician Provided Cytology Information Source.............Cervix;Endocervix No. of containers..01 ThinPrep Vial Age Algo ACOG Iris... FLAG LEGEND: L-Low Normal,H-High Normal,LL-Alert Low,HH-Alert High <-Panic Low,>-Panic High,A-Abnormal,AA-Critical Abnormal Performed at: 01 =[address] [phone] Rhina Armstrong MD, HPV APTIMA Positive Abnormal Negative [facility] Comment on above: This nucleic acid am plification test detects fourteen high- risk HPV types (16,18,31,33,35,39,45,51,52,56,58,59,66,68) without differentiation. Performed at: =[address] [id number] Director [employer]it System: Rhina Armstrong MD, Phone: [phone] Performed at: [address] [id number] Director [employer] System: Rhina Armstrong MD, Phone: [phone] IGP, APTIMA HPV, RFX 16/18,45 Note Abnormal . [facility] Comment on above: TESTS RESULT FLAG UN ITS REF RANGE LAB DIAGNOSIS: [A] 02 EPITHELIAL CELL ABNORMALITY. LOW GRADE SQUAMOUS INTRAEPITHELIAL LESION (LSIL). Recommendation: [A] 02 Suggest follow up as clinically appropriate. Specimen adequacy: 02 Satisfactory for evaluation. Endocervical and/or squamous metaplastic cells (endocervical component) are present. Performed by: 02 Salima Galloway, Buckle Attacher (ASCP) Electronically si... 02 Rhina Armstrong MD, [...] <-Panic Low,>-Panic High,A-Abnormal,AA-Critical Abnormal Performed at: [address] [id number] Rhina Armstrong MD, Interpretation and review of laboratory results Abnormal [facility] BRUSH-SPATULA CERVIX ENDOCERVIX [facility] Health[facility] e SARS/FLU A+B/RSV by NAAT/Mol ecularon [...] operators who are performing tests using either Stream DX or CoworkingON systems and is limited to laboratories that [...] repeat. Fact Sheet for Healthcare Providers: https://www.fda.gov/ media/759290/downloa d Fact Sheet for Patients: https://www.fda.gov/ media/339435/downloa d Normal [facility] Comment on above: Performed By: #### C OVFLR #### [facility] ([id number]) [address] [facility] [place] [address] PAP ACOG PANEL 2: 30 to 65on 07-29-2022 . . Normal [facility] Comment on above: Result Comment: Perf ormed at: WB Performed By: #### [id number] #### [facility] [address] [address] [address] Earlene Damian Age Gdln ACOG Testing - Normal [facility] Comment on above: Performed By: #### [id number] #### [facility] [address] [address] [address] Earlene Damian DIAGNOSIS: Comment Abnormal [facility] Comment on above: Result Comment: EPIT HELIAL CELL ABNORMALITY. LOW GRADE SQUAMOUS INTRAEPITHELIAL LESION (LSIL). Performed at: WB Performed By: #### [id number] #### [facility] [address] [address] [address] Earlene Damian Electronically signed by: Comment Normal [facility] Comment on above: Result Comment: Eloina Armstrong MD, Pathologist Performed at: WB Performed By: #### [id number] #### [facility] [address] [address] [address] Earlene Damian HPV Aptima Positive Abnormal Negative [facility] Comment on above: Result Comment: This nucleic acid amplification test detects fourteen high-risk HPV types (16,18,31,33,35,39,45,51,52,56,58,59,66,68) without differentiation. Performed at: =G Performed By: #### 4 [id number] #### [facility] [address] [address] [address] Earlene Damian HPV Genotype Reflex Comment Normal [facility] Comment on above: Result Comment: Crit eria not met, HPV Genotype not performed. Performed at: WB Performed By: #### [id number] #### [facility] [address] [address] [address] Earlene Damian Methodology: Comment Normal [facility] Comment on above: Result Comment: This liquid based ThinPrep(R) pap test was screened with the use of an image guided system. Performed at: WB Performed By: #### [id number] #### [facility] [address] [address] [address] Earlene Damian Note: Comment Normal [facility] Comment on above: Result Comment: The Pap smear is a screening test designed to aid in the detection of premalignant and malignant conditions of the uterine cervix. It is not a diagnostic procedure and should not be used as the sole means of detecting cervical cancer. Both false-positive and false-negative reports do occur. . Performed at: WB Performed By: #### [id number] #### [facility] [address] [place] [address] Dr. Earlene Damian Pathologist Provided ICD10 Comment Normal [facility] Comment on above: Result Comment: [id number] Performed at: WB Performed By: #### [id number] #### [facility] [address] [place] [address] Dr. Earlene Damian Performed by: Comment Normal [facility] Comment on above: Result Comment: Zach Fong Buckle Attacher (ASCP) Performed at: WB Performed By: #### 4 [id number] #### [facility] [address] [place] [address] Dr. Earlene Damian Recommendation: Comment Abnormal [facility] Comment on above: Result Comment: Sugg est follow up as clinically appropriate. Performed at: WB Performed By: #### 4 [id number] #### [facility] [address] [address] [address] Earlene Damian Specimen adequacy: Comment Normal [facility] Comment on above: Result Comment: Sati sfactory for evaluation. Endocervical and/or squamous metaplastic cells (endocervical component) are present. Performed at: WB Performed By: #### 4 [id number] #### [facility] [address] [place] [address] Dr. Earlene Damian Vital Signs Date Time Vital Sign Value Performing Clinician [facility] 12-24-2024 13:26-0400 Body mass index (BMI) [Ratio] 37.19 kg/m2 Milka FIELDS Work Phone: [facility] 12-24-2024 13:26-0400 Body weight 89.27 kg Milka FIELDS Work Phone: [facility] 12-24-2024 13:26-0400 Diastolic blood pressure 80 mm[Hg] Milka FIELDS Work Phone: [facility] 12-24-2024 13:26-0400 Systolic blood pressure 120 mm[Hg] Milka FIELDS Work Phone: [facility] 12-18-2024 09:39-0400 Body mass index (BMI) [Ratio] 37.22 kg/m2 Anali Mónica DO Work Phone: [facility] 12-18-2024 09:39-0400 Body weight 89.36 kg Anali Mónica DO Work Phone: [facility] 12-18-2024 09:39-0400 Diastolic blood pressure 74 mm[Hg] Anali Mónica DO Work Phone: [facility] 12-18-2024 09:39-0400 Systolic blood pressure 118 mm[Hg] Anali Mónica DO Work Phone: [facility] 12-13-2024 10:27-0400 Body mass index (BMI) [Ratio] 37.41 kg/m2 Anali Mónica DO Work Phone: [facility] 12-13-2024 10:27-0400 Body weight 89.81 kg Anali Mónica DO Work Phone: [facility] 12-13-2024 10:27-0400 Diastolic blood pressure 76 mm[Hg] Anali Mónica DO Work Phone: [facility] 12-13-2024 10:27-0400 Systolic blood pressure 118 mm[Hg] Anali Mónica DO Work Phone: [facility] 12-05-2024 10:37-0400 Body mass index (BMI) [Ratio] 37.41 kg/m2 Anali Mónica DO Work Phone: [facility] 12-05-2024 10:37-0400 Body weight 89.81 kg Anali Mónica DO Work Phone: [facility] 12-05-2024 10:37-0400 Diastolic blood pressure 70 mm[Hg] Anali Mónica DO Work Phone: [facility] 12-05-2024 10:37-0400 Systolic blood pressure 114 mm[Hg] Anali Mónica DO Work Phone: [facility] 11-20-2024 14:47-0400 Body mass index (BMI) [Ratio] 36.84 kg/m2 Milka Jorge PA Work Phone: [facility] 11-20-2024 14:47-0400 Body weight 88.45 kg Milka Baxter PA Work Phone: [facility] 11-20-2024 14:47-0400 Diastolic blood pressure 72 mm[Hg] Milka Baxter PA Work Phone: [facility] 11-20-2024 14:47-0400 Systolic blood pressure 118 mm[Hg] Milka Jorge PA Work Phone: [facility] 11-06-2024 11:46-0400 Body mass index (BMI) [Ratio] 37.7 kg/m2 Anali Mónica DO Work Phone: [facility] 11-06-2024 11:46-0400 Body weight 90.49 kg Anali Mónica DO Work Phone: [facility] 11-06-2024 11:46-0400 Diastolic blood pressure 64 mm[Hg] Anali Mónica DO Work Phone: [facility] 11-06-2024 11:46-0400 Systolic blood pressure 112 mm[Hg] Anali Mónica DO Work Phone: [facility] 10-17-2024 15:13-0400 Body mass index (BMI) [Ratio] 36.66 kg/m2 Anali Mónica DO Work Phone: [facility] 10-17-2024 15:13-0400 Body weight 88 kg Anali Mónica DO Work Phone: [facility] 10-17-2024 15:13-0400 Diastolic blood pressure 74 mm[Hg] Anali Mónica DO Work Phone: [facility] 10-17-2024 15:13-0400 Systolic blood pressure 120 mm[Hg] Anali Mónica DO Work Phone: [facility] 09-20-2024 15:34-0400 Body mass index (BMI) [Ratio] 36.47 kg/m2 Milka Jorge PA Work Phone: [facility] 09-20-2024 15:34-0400 Body weight 87.54 kg Milka Jorge PA Work Phone: [facility] 09-20-2024 15:34-0400 Diastolic blood pressure 70 mm[Hg] Milka Jorge PA Work Phone: [facility] 09-20-2024 15:34-0400 Systolic blood pressure 120 mm[Hg] Milka Jorge PA Work Phone: [facility] 08-20-2024 10:35-0400 Body mass index (BMI) [Ratio] 36.73 kg/m2 Anali Mónica DO Work Phone: [facility] 08-20-2024 10:35-0400 Body weight 88.18 kg Anali Mónica DO Work Phone: [facility] 08-20-2024 10:35-0400 Diastolic blood pressure 76 mm[Hg] Anali Mónica DO Work Phone: [facility] 08-20-2024 10:35-0400 Systolic blood pressure 118 mm[Hg] Anali Mónica DO Work Phone: [facility] 07-16-2024 12:04-0400 Body mass index (BMI) [Ratio] 36.05 kg/m2 Milka Patel PA Work Phone: [facility] 07-16-2024 12:04-0400 Body weight 86.55 kg Milka Patel PA Work Phone: [facility] 07-16-2024 12:04-0400 Diastolic blood pressure 70 mm[Hg] Milka Patel PA Work Phone: [facility] 07-16-2024 12:04-0400 Systolic blood pressure 116 mm[Hg] Milka Patel PA Work Phone: [facility] 06-14-2024 10:27-0500 Body mass index (BMI) [Ratio] 35.54 kg/m2 Anali Mónica DO Work Phone: [facility] 06-14-2024 10:27-0500 Body weight 85.33 kg Anali Mónica DO Work Phone: [facility] 06-14-2024 10:27-0500 Diastolic blood pressure 68 mm[Hg] Anali Mónica DO Work Phone: [facility] 06-14-2024 10:27-0500 Systolic blood pressure 110 mm[Hg] Anali Mónica DO Work Phone: [facility] 05-31-2024 14:08-0500 Body mass index (BMI) [Ratio] 36.09 kg/m2 [facility] 05-31-2024 14:08-0500 Body weight 86.64 kg [facility] 05-31-2024 14:08-0500 Diastolic blood pressure 72 mm[Hg] [facility] 05-31-2024 14:08-0500 Systolic blood pressure 118 mm[Hg] [facility] 05-30-2024 13:50-0500 Body mass index (BMI) [Ratio] 36.09 kg/m2 Anali Mónica DO Work Phone: [facility] 05-30-2024 13:50-0500 Body weight 86.64 kg Anali Mónica DO Work Phone: [facility] 05-30-2024 13:50-0500 Diastolic blood pressure 72 mm[Hg] Anali Mónica DO Work Phone: [facility] 05-30-2024 13:50-0500 Systolic blood pressure 118 mm[Hg] Anali Mónica DO Work Phone: [facility] 01-20-2024 11:30-0400 Diastolic blood pressure 63 mm[Hg] Doc Thomas MD Work Phone: [facility] 01-20-2024 11:30-0400 Heart rate 63 /min [facility] 01-20-2024 11:30-0400 SaO2% (BldA) [Mass fraction] 99 % Doc Thomas [facility] 01-20-2024 11:30-0400 Systolic blood pressure 106 mm[Hg] Doc Thomas [facility] 01-20-2024 09:14-0400 Body height 154.9 cm Doc Robertson [facility] 01-20-2024 09:14-0400 Body mass index (BMI) [Ratio] 34.01 kg/m2 Doc Thomas [facility] 01-20-2024 09:14-0400 Body temperature 98.71 [degF] Doc Robertson [facility] 01-20-2024 09:14-0400 Body weight 81.65 kg Doc Robertson [facility] 01-20-2024 09:14-0400 Respiratory rate 18 /min Doc Robertson Work Phone: [facility] Encounters Encounter Date Encounter Type Care Provider Facility Start: 12-24-2024 End: 12-24-2024 Bamboo flowsheet Milka FIELDS Work Phone: [facility] Start: 12-24-2024 End: 12-24-2024 Bamboo flowsheet Milka FIELDS Work Phone: [facility] Start: 12-24-2024 End: 12-24-2024 ambulatory MILKA PATEL Not Available Start: 12-24-2024 End: 12-24-2024 Office outpatient visit 15 minutes Milka FIELDS Work Phone: [facility] Comment on above: 38 weeks gestation o f ([facility]); Third trimester ([facility]); H/O premature delivery; Anemia during in third trimester ([facility]); Pruritus; Vapes nicotine containing substance; Mood disorder Start: 12-18-2024 End: 12-18-2024 Bamboo flowsheet Anali Mónica DO Work Phone: [facility] Start: 12-18-2024 End: 12-18-2024 Bamboo flowsheet Anali Mónica DO Work Phone: [facility] Start: 12-18-2024 End: 12-18-2024 ambulatory ANALI MÓNICA Not Available Start: 12-18-2024 End: 12-18-2024 Office outpatient visit 15 minutes Anali Mónica DO Work Phone: [facility] Comment on above: Third trimester preg nick ([facility]); 37 weeks gestation of ([facility]) Start: 12-13-2024 End: 12-13-2024 Bamboo flowsheet Anali Mónica DO Work Phone: [facility] Start: 12-13-2024 End: 12-13-2024 Bamboo flowsheet Anali Mónica DO Work Phone: [facility] Start: 12-13-2024 End: 12-13-2024 Office outpatient visit 15 minutes Anali Mónica DO Work Phone: [facility] Comment on above: Third trimester preg nick ([facility]); 35 weeks gestation of ([facility]); H/O premature delivery Start: 12-13-2024 End: 12-13-2024 ambulatory ANALI MÓNICA Not Available Start: 12-05-2024 End: 12-05-2024 Clinisync Result Encounter Milka FIELDS Work Phone: [facility] Unsolicited Start: 12-05-2024 End: 12-05-2024 Clinisync Result Encounter Milka FIELDS Work Phone: [facility]solic[facility] Start: 12-05-2024 End: 12-05-2024 Office outpatient visit 15 minutes Anali Mónica DO Work Phone: [facility] Comment on above: Pruritus (Primary Dx ); Third trimester ([facility]); 35 weeks gestation of ([facility]); Anemia during in third trimester ([facility]) Start: 12-05-2024 End: 12-05-2024 ambulatory ANALI MÓNICA Not Available Start: 11-20-2024 End: 11-20-2024 ambulatory MILKA PATEL Not Available Start: 11-20-2024 End: 11-20-2024 Office outpatient visit 15 minutes Milka FIELDS Work Phone: [facility] Comment on above: Size of fetus incons istent with dates in third trimester ([facility]) (Primary Dx); Third trimester ([facility]); 33 weeks gestation of ([facility]); H/O premature delivery; Vapes nicotine containing substance; Diabetes mellitus screening Start: 11-20-2024 End: 11-20-2024 Bamboo flowsheet Milka FIELDS Work Phone: [facility] Start: 11-20-2024 End: 11-20-2024 Bamboo flowsheet Milka FIELDS Work Phone: [facility] Start: 11-06-2024 End: 11-06-2024 Bamboo flowsheet Anali Mónica DO Work Phone: [facility] Start: 11-06-2024 End: 11-06-2024 Bamboo flowsheet Anali Mónica DO Work Phone: [facility] Start: 11-06-2024 End: 11-06-2024 ambulatory ANALI MÓNICA Not Available Start: 11-06-2024 End: 11-06-2024 Office outpatient visit 15 minutes Anali Mónica DO Work Phone: [facility] Comment on above: Third trimester preg nick ([facility]); 31 weeks gestation of ([facility]) Start: 10-23-2024 End: 10-23-2024 Clinisync Result Encounter [...] on above: Third trimester preg nick ([facility]); Screening examination for STI; 28 weeks gestation of ([facility]); H/O premature delivery Start: 10-17-2024 End: 10-17-2024 [...] visit 15 minutes Milka FIELDS Work Phone: [facility] Comment on above: Second trimester pre gnancy ([facility]); 24 weeks gestation of ([facility]); Diabetes mellitus screening Start: 09-20-2024 End: 09-20-2024 Bamboo flowsheet Milka FIELDS Work Phone: [facility] Start: 09-20-2024 End: 09-20-2024 Bamboo flowsheet Milka FIELDS Work Phone: [facility] Start: 08-20-2024 End: 08-20-2024 ambulatory ANALI MÓNICA Not Available Start: 08-20-2024 End: 08-20-2024 Office outpatient visit 15 minutes Anali Mónica DO Work Phone: [facility] Comment on above: 20 weeks gestation o f ; History of miscarriage Start: 08-20-2024 End: 08-20-2024 ambulatory ANALI MÓNICA Not Available Start: 07-16-2024 End: 07-16-2024 Bamboo flowsheet Milka FIELDS Work Phone: [facility] Start: 07-16-2024 End: 07-16-2024 Bamboo flowsheet Milka FIELDS Work Phone: [facility] Start: 07-16-2024 End: 07-16-2024 ambulatory MILKA PATEL Not Available Start: 07-16-2024 End: 07-16-2024 Office outpatient visit 15 minutes Milka FIELDS Work Phone: [facility] Comment on above: Second trimester pre gnancy; 15 weeks gestation of ; Vaginal discharge; STD exposure; Screening, , for anatomic survey; Gastroesophageal reflux in ; Heartburn during in second trimester; Cluster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
[2024-12-27 14:46] LABS: Cannabinoid Screen Urine NEGATIVE (NEGATIVE); Methamphetamines Screen Urine NEGATIVE (NEGATIVE); Tricyclic Antidepressant Urine NEGATIVE (NEGATIVE)
[2024-12-27 14:53] LABS: Hematocrit 27.0 % (36.0-48.0); Hemoglobin 9.1 g/dL (12.0-16.0); Immature Granulocytes Abs Auto 0.08 10^3/uL (0.00-0.03); Immature Granulocytes Pct Auto 0.7 % (0.0-0.5); Lymphocytes Absolute Auto 2.1 10^3/uL (1.2-3.8); Mean Corpuscular HGB Conc 33.7 g/dL (29.9-35.2); Mean Corpuscular Hemoglobin 29.1 pg (26.7-34.0); Mean Corpuscular Volume 86.3 fL (81.0-99.0); Platelet Count 300 10^3/uL (150-450); Red Blood Count 3.13 10^6/uL (4.20-5.40); White Blood Count 12.3 10^3/uL (4.0-11.0)
[2024-12-27] MEDS: OXYTOCIN/0.9 % SODIUM CHLORIDE 10 UNITS/500 ML PLAST..BAG 6 UNIT IV (15:15)
[2024-12-27] MEDS: 0.9 % SODIUM CHLORIDE 1,000 ML 125 ML IV (15:15)
--- NOTE | 2024-12-27 18:00 | PM.OBPRCVD ---
Procedure Intrapartal events: None Induction method: none Delivery augmentation: rupture of membranes and pitocin Delivery monitor: external FHT and external uterine Route of delivery: Episiotomy Description: none L&D Laceration Description: none Estimated blood loss (mL): 200 Anesthesia type: None Disposition: floor Infant Delivery date: 12/27/24 Gender: female presentation: vertex Placental delivery description: Spontaneous cord description: 3 Vessels
[2024-12-27] MEDS: OXYTOCIN/0.9 % SODIUM CHLORIDE 20 UNITS/1,000 ML PLAST..BAG 999 UNIT IV (18:19)
[2024-12-27] MEDS: IBUPROFEN 600 MG TABLET PO (20:14)
[2024-12-27] MEDS: ACETAMINOPHEN 325 MG TABLET 650 MG PO (22:12)
[2024-12-28] MEDS: IBUPROFEN 600 MG TABLET PO ×3 (03:14→17:49)
[2024-12-28] MEDS: ACETAMINOPHEN 325 MG TABLET 650 MG PO ×2 (06:15→21:21)
[2024-12-28 06:16] LABS: Hematocrit 26.3 % (36.0-48.0); Hemoglobin 8.5 g/dL (12.0-16.0); Immature Granulocytes Abs Auto 0.08 10^3/uL (0.00-0.03); Immature Granulocytes Pct Auto 0.5 % (0.0-0.5); Lymphocytes Absolute Auto 2.8 10^3/uL (1.2-3.8); Mean Corpuscular HGB Conc 32.3 g/dL (29.9-35.2); Mean Corpuscular Hemoglobin 28.1 pg (26.7-34.0); Mean Corpuscular Volume 87.1 fL (81.0-99.0); Platelet Count 259 10^3/uL (150-450); Red Blood Count 3.02 10^6/uL (4.20-5.40); White Blood Count 15.4 10^3/uL (4.0-11.0)
[2024-12-28 08:20] VITALS: BP 102/67; PULSE 61; TEMP 36.7
[2024-12-28 08:25] VITALS: BP 102/67; PULSE 61
[2024-12-28] MEDS: CITALOPRAM HYDROBROMIDE 20 MG TABLET 30 MG PO (08:29)
[2024-12-28] MEDS: DOCUSATE SODIUM 100 MG CAPSULE PO ×2 (08:29→21:21)
--- NOTE | 2024-12-28 09:44 | PM.OBPN ---
OB - PN: Subj Subjective Patient comments: no complaints and pain well controlled status: doing well Exam Constitutional Vital Signs, click to edit/add: Last Vital Signs Temp 98.0 F 12/28/24 08:20 Pulse 61 12/28/24 08:25 Resp 16 12/28/24 08:20 BP 102/67 12/28/24 08:25 O2 Del Method Room Air 12/27/24 23:31 Documenting provider has reviewed patient's vital signs: yes Common normals: no apparent distress Respiratory Common normals: normal respiratory effort and clear to auscultation bilaterally Cardio Common normals: regular rate and regular rhythm GI Common normals: Normal to inspection, nondistended, normoactive bowel sounds present Extremity Common normals: no clubbing, cyanosis or edema and no calf tenderness Results Labs Labs: Short CBC 12/27/24 12/28/24 Range/Units 14:45 06:08 WBC 12.3 H 15.4 H (4.0-11.0) 10^3/uL Hgb 9.1 L 8.5 L (12.0-16.0) g/dL Hct 27.0 L 26.3 L (36.0-48.0) % Plt Count 300 259 (150-450) 10^3/uL OB - PN: A/P Plan - Vaginal Delivery day: 1 Plan: routine care Time Spent with Patient Time: Total time spent is greater than 50% in coordination of care (as documented) at patient's floor/unit and/or counseling patient: Total time spent with greater than 50% in coordination of care (as documented) at patient's floor/unit and/or counseling patient: less than 15 minutes
[2024-12-28 16:05] VITALS: BP 118/70; PULSE 83; TEMP 36.9
[2024-12-28 16:06] VITALS: BP 118/70; PULSE 83
[2024-12-29] MEDS: IBUPROFEN 600 MG TABLET PO ×2 (00:03→09:49)
[2024-12-29 00:05] VITALS: BP 115/68; PULSE 74; TEMP 36.7
--- NOTE | 2024-12-29 09:40 | PM.OBPN ---
OB - PN: Subj Subjective Patient comments: no complaints and pain well controlled [place] status: doing well Exam Constitutional Vital Signs, click to edit/add: Last Vital Signs Temp 98.0 F 12/29/24 00:05 Pulse 74 12/29/24 00:05 Resp 16 12/29/24 00:05 BP 115/68 12/29/24 00:05 O2 Del Method Room Air 12/29/24 00:05 Documenting provider has reviewed patient's vital signs: yes Common normals: no apparent distress Respiratory Common normals: normal respiratory effort and clear to auscultation bilaterally Cardio Common normals: regular rate and regular rhythm GI Common normals: Normal to inspection, nondistended, normoactive bowel sounds present Extremity Common normals: no clubbing, cyanosis or edema and no calf tenderness OB - PN: A/P Plan - Vaginal Delivery day: 2 Plan: routine care, discharge home and follow up 6 weeks Time Spent with Patient Time: Total time spent is greater than 50% in coordination of care (as documented) at patient's floor/unit and/or counseling patient: Total time spent with greater than 50% in coordination of care (as documented) at patient's floor/unit and/or counseling patient: less than 15 minutes
[2024-12-29] MEDS: DOCUSATE SODIUM 100 MG CAPSULE PO (09:50)
[2024-12-29] MEDS: CITALOPRAM HYDROBROMIDE 20 MG TABLET 30 MG PO (09:50)
[2024-12-29 09:58] VITALS: BP 113/73; PULSE 64
== END 2024-12-29 13:10 | disposition home or self-care (01) | DRG 560 ==
PROVIDERS: Admitting Provider Obstetrics & Gynecology; PCP Internal Medicine; Visit Provider Obstetrics & Gynecology
DX: O26.893 Other specified pregnancy related conditions, third trimester (principal); Z67.11 Type A blood, Rh negative; O99.334 Smoking (tobacco) complicating childbirth; F17.290 Nicotine dependence, other tobacco product, uncomplicated; Z3A.38 38 weeks gestation of pregnancy; Z37.0 Single live birth; Z87.51 Personal history of pre-term labor
CPT/HCPCS: 36415; 80307; 85025; 85027; 86850; 86900; 86901; J2300

== ENCOUNTER 2025-01-02 14:38 | Outpatient (OUT) | payer OTHER, SELFPAY ==
--- OUTSIDE RECORDS SUMMARY | 2025-01-02 14:46 | XMS_ITS | CCD ---
Author Organization [facility] Care Team Providers Care Electronic Commerce Specialist Name Role Phone REQUEST, DR NONE LISTED Primary Care Unavaila ble MÓNICA ., DR BRIONES Attending Unavailable MÓNICA ., DR BRIONES Consulting Unavailable MÓNICA ., DR BRIONES Admitting RAKESH Barnett Primary Care UnavailDOC Oneill Attending Unavailabl e Unavailable Primary Care Provider Miguel Shepherd MD, Rakesh Primary Care Provider [phone] ANALI SALES Attending Unavailable MÓNICA, ANALI Attending [...] completed) magnesium oxide 400 mg oral tablet (6 sources) Start: 07-16-2024 End: 08-15-2024 take 1 [...] polysaccharide iron complex 391 mg oral capsule (13 sources) Start: 12-05-2024 End: 01-04-2025 take 1 capsule by mouth once daily iron polysaccharides (ProFe) 391.3 (180 Fe) MG capsule Indications: Anemia during in third trimester ([facility]) Take 1 capsule (391.3 mg) [...] Test Name Value Interpretation Reference Range Facility ALL CBC WITH AUTO DIFFon BASOPHILS ABSOLUTE AUTO [address] [facility] Basophils/100 WBC (Bld) 0.2 % 0.2 - 2.0 % [facility] Eosinophils/100 WBC (Bld) 0.5 % Low 0.9 - 7.0 % [facility] Erythrocyte distribution width (RBC) [Ratio] 13.2 % 11.0 - 15.0 % [facility] Hematocrit (Bld) [Volume fraction] 26.3 % Low 36.0 - 48.0 % [facility] Hemoglobin (Bld) [Mass/Vol] 8.5 g/dL Low 12.0 - 16.0 g/dL [facility] IMMATURE GRANULOCYTES ABS AUTO 0.[address] [facility] Immature granulocytes/100 WBC (Bld) 0.5 % 0.0 - 0.5 % [facility] Interpretation and review of laboratory results Abnormal [facility] LYMPHOCYTES ABSOLUTE AUTO 2.8 [facility] Lymphocytes/100 WBC (Bld) 18.3 % Low 20.5 - 60.0 % [facility] MCH (RBC) [Entitic mass] 28.1 pg 26.7 - 34.0 pg [facility] MCHC (RBC) [Mass/Vol] 32.3 g/dL 29.9 - 35.2 g/dL [facility] MCV (RBC) [Entitic vol] 87.1 fL 81.0 - 99.0 fL [facility] MONOCYTES ABSOLUTE AUTO 1.2 High [facility] Monocytes/100 WBC (Bld) 7.8 % 1.7 - 12.0 % [facility] NEUTROPHILS ABSOLUTE AUTO 11.2 High [facility] Neutrophils/100 WBC (Bld) 72.7 % 43.0 - 75.0 % [facility] Platelet mean volume (Bld) [Entitic vol] 9.4 fL Low 9.5 - 13.5 fL [facility] TB[facility] EO # 0.1 [facility] PLT 259 [facility] RBC 3.02 Low [facility] WBC 15.4 High [facility] DRUG SCREEN RAPID (URINE )on 12-27-2024 AMPHETAMINE SCREEN URINE Negative NEGATIVE [facility] BARBITURATES SCREEN URINE Negative NEGATIVE [facility] BENZODIAZEPINES SCREEN URINE Negative NEGATIVE [facility] BUPRENORPHINE SCREEN URINE Negative NEGATIVE [facility] Comment on above: DRUG CLASS TEST SYST EM CUT-OFF CONCENTRATIONS ARE FOLLOWS: AMP (Amphetamine): 500 ng/mL BAR (Barbiturates): 200 ng/mL BZO (Benzodiazepines): 150 ng/mL BUP (Buprenorphine): 10 ng/mL LEONID (Cocaine): 150 ng/mL mAMP (Methamphetamine): 500 ng/mL MTD (Methadone): 200 ng/mL OPI (Opiates): 100 ng/mL OXY (Oxycodone): 100 ng/mL PCP (Phencyclidine): 25 ng/mL THC (Cannabinoids): 50 ng/mL TCA (Trycyclic Antidepressants): 300 ng/mL CANNABINOID SCREEN URINE Negative NEGATIVE [facility] COCAINE SCREEN URINE Negative NEGATIVE [facility] METHADONE SCREEN URINE Negative NEGATIVE [facility] METHAMPHETAMINES SCREEN URINE Negative NEGATIVE [facility] OPIATE SCREEN URINE Negative NEGATIVE [facility] OXYCODONE SCREEN URINE Negative NEGATIVE [facility] PHENCYCLIDINE SCREEN URINE Negative NEGATIVE [facility] TRICYCLIC ANTIDEPRESSANT URINE Negative NEGATIVE [facility] Healthcar e Urinalysis macro (dipstick) panel (U)on 12-24-2024 Bilirubin, UA Negative Negative - 4(70) +++ mg/dL [facility] Blood, UA Negative Negative - 50 Fahad/mcL [facility] Healthcare Clarity, UA Clear [facility] Color, UA Yellow [facility] Glucose, UA Negative Negative - 1999(110) ++++ mg/dL [facility] Interpretation and review of laboratory results Abnormal [facility] Ketones, UA Negative Negative - 160(16) ++++ mg/dL [facility] Leukocytes, UA Negative Negative - 500+++ Carlos/mcL [facility] Nitrite, UA Negative Negative - Positive [facility] pH, UA 6 5 - 9 [facility] Healthcar e Protein, UA Negative Negative - 1999(20) ++++ mg/dL [facility] Spec Grav, UA 1.01 1 - 1.03 [facility] Urobilinogen, UA 1.0 0.2 - 12 mg/dL [facility] Urinalysis macro (dipstick) panel (U)on 12-18-2024 Bilirubin, UA Negative Negative - 4(70) +++ mg/dL [facility] Blood, UA Negative Negative - 50 Fahad/mcL [facility] Clarity, UA Clear [facility] Healthca re Color, UA Yellow [facility] Healthcar e Glucose, UA Negative Negative - 1999(110) ++++ mg/dL [facility] Interpretation and review of laboratory results Abnormal [facility] Ketones, UA Negative Negative - 160(16) ++++ mg/dL [facility] Leukocytes, UA 3+ Negative - 500+++ Carlos/mcL [facility] Nitrite, UA Negative Negative - Positive [facility] pH, UA 6 5 - 9 [facility] Healthcar e Protein, UA Negative Negative - 1999(20) ++++ mg/dL [facility] Spec Grav, UA 1.01 1 - 1.03 [facility] Urobilinogen, UA 1.0 0.2 - 12 mg/dL [facility] Urinalysis macro (dipstick) panel (U)on 12-13-2024 Bilirubin, UA Negative Negative - 4(70) +++ mg/dL [facility] Blood, UA Negative Negative - 50 Fahad/mcL [facility] Clarity, UA Clear [facility] re Color, UA Yellow [facility] Healthcar e Glucose, UA Negative Negative - 1999(110) ++++ mg/dL [facility] Interpretation and review of laboratory results Abnormal [facility] Ketones, UA Negative Negative - 160(16) ++++ mg/dL [facility] Leukocytes, UA 2+ Negative - 500+++ Carlos/mcL [facility] Nitrite, UA Negative Negative - Positive [facility] pH, UA 6 5 - 9 [facility] Healthcar e Protein, UA Negative Negative - 1999(20) ++++ mg/dL [facility] Spec Grav, UA 1.01 1 - 1.03 [facility] Urobilinogen, UA 1.0 0.2 - 12 mg/dL [facility] MLR HEMOGLOBIN A1Con 12-05- 025 Glucose [Mass/Vol] 100 mg/dL [facility] ealthcare HbA1c (Bld) [Mass fraction] 5.1 % 4.5 - 6.2 % [facility] Comment on above: ADA RECOMMENDED LIMI T 4.0 - 6.0 ADA THERAPEUTIC TARGET < 7.0 ACTION SUGGESTED > 7.0 [facility] Healthcar e US OB FOLLOW UP TRANSABDOMIN [...] UA Negative Negative - 4(70) +++ mg/dL [facility] Healthcare Blood, UA Negative Negative - 50 Fahad/mcL [facility] Healthcare Clarity, UA Clear [facility] Color, UA Yellow [facility] Glucose, UA Negative Negative - 1999(110) ++++ mg/dL [facility] Healthcare Interpretation and review of laboratory results Normal [facility] Ketones, UA Negative Negative - 160(16) ++++ mg/dL [facility] Healthcare Leukocytes, UA Negative Negative - 500+++ Carlos/mcL [facility] Healthcare Nitrite, UA Negative Negative - Positive [facility] Healthcare pH, UA 7 5 - 9 [facility] Healthcar e Protein, UA Negative Negative - 1999(20) ++++ mg/dL [facility] Healthcare Spec Grav, UA 1.01 1 - 1.[address] [facility] care Urobilinogen, UA 1.0 0.2 - 12 mg/dL [facility] Urinalysis macro (dipstick) panel (U)on 11-20-2024 Bilirubin, UA Negative Negative - 4(70) +++ mg/dL [facility] Healthcare Blood, UA Negative Negative - 50 Fahad/mcL [facility] Healthcare Clarity, UA Clear [facility] Color, UA Yellow [facility] Glucose, UA Negative Negative - 1999(110) ++++ mg/dL [facility] Healthcare Interpretation and review of laboratory results Normal [facility] Healthcare Ketones, UA Negative Negative - 160(16) ++++ mg/dL [facility] Leukocytes, UA Negative Negative - 500+++ Carlos/mcL [facility] Nitrite, UA Negative Negative - Positive [facility] pH, UA 7 5 - 9 [facility] Protein, UA Negative Negative - 1999(20) ++++ mg/dL [facility] Spec Grav, UA 1.02 1 - 1.03 [facility] care Urobilinogen, UA 1.0 0.2 - 12 mg/dL [facility] Urinalysis macro (dipstick) panel (U)on 11-06-2024 Bilirubin, UA Negative Negative - 4(70) +++ mg/dL [facility] Blood, UA Negative Negative - 50 Fahad/mcL [facility] Healthcare Clarity, UA Clear [facility] Color, UA Yellow [facility] Glucose, UA Negative Negative - 1999(110) ++++ mg/dL [facility] Interpretation and review of laboratory results Abnormal [facility] Ketones, UA Negative Negative - 160(16) ++++ mg/dL [facility] Leukocytes, UA Moderate Negative - 500+++ Carlos/mcL [facility] Nitrite, UA Negative Negative - Positive [facility] pH, UA 6.5 5 - 9 [facility] Healthcar e Protein, UA Negative Negative - 1999(20) ++++ mg/dL [facility] Spec Grav, UA 1.01 1 - 1.[address] [facility] care Urobilinogen, UA 0.2 0.2 - 12 mg/dL [facility] UA (CLEAN/CATCH) CORPORATE SECRETARY/ANIBAL RO IF IND.on 10-23-2024 BILIRUBIN URINE Negative NEGATIVE [facility] Heal thcare BLOOD URINE Negative NEGATIVE [facility] Healthca re Clarity (U) CLEAR CLEAR [facility] Healthca re Color (U) LT. YELLOW YELLOW [facility] Healthcar e GLUCOSE URINE UA Negative NEGATIVE mg/dL [facility] Interpretation and review of laboratory results Abnormal [facility] Healthcare Ketones Ql (U) 15 mg/dL Abnormal NEGATIVE [facility] Healt hcare Leukocyte esterase Test strip Ql (U) TRACE Abnormal NEGATIVE [facility] Healthcare NITRITE URINE Negative NEGATIVE [facility] Health care pH (U) 7.5 [pH] 5.0 - 9.0 [facility] PROTEIN URINE Negative NEG/TRACE mg/dL [facility] Healthcare SPECIFIC GRAVITY URINE 1.015 1.005 - 1.[address] [facility] URINE MICROSCOPIC INDICATED YES [facility] UROBILINOGEN URINE 0.2 EU/dL 0.2 - 1.0 EU/dL [facility] US OB CERVICAL LENGTHon 10-09 [place] [address] Ultrasound Report Signed Patient: POOJA VALENCIA MR#: [id number] : 1990 Acct:[id number] Age/Sex: 33 / F ADM Date: Loc: [facility] 254-[address]: Anali Sales D.O. Ordering Physician: Anali Sales D.O. Date of Service: 10/23/24 Procedure(s): US OB cervical length Accession Number(s): [id number] cc: Anali Sales D.O.; RAKESH SHEPHERD [place] [id number] Patient Name: POOJA VALENCIA MRN: [id number] date: 1990 Sex: F Assigned Patient Location: [facility] Current Patient Location: [facility] Accession/Order Number: [id number] Exam Date: 10/23/2024 20:48 Report Date: 10/23/2024 [...] Ruiz M.D. 10/23/2024 8:53 PM [facility] by: [id number] Y Date: 10/23/2024 20:53 Dictated By: Choco Ruiz M.D. Signed By: 10/23/242055 DD/ 52 TD/TT: Environmental Scientist: [facility] Radiology, Radiologist, - 10/23/2024 [place] [address] Ultrasound Report Signed Patient: POOJA VALENCIA MR#: [id number] : 1990 Acct:[id number] Age/Sex: 33 / F ADM Date: Loc: [facility] 254-[address]: Anali Sales D.O. Ordering Physician: Anali Sales D.O. Date of Service: 10/23/24 Procedure(s): US OB cervical length Accession Number(s): [id number] cc: Anali Sales D.O.; RAKESH SHEPHERD [place] [address] Patient Name: POOJA VALENCIA MRN: [facility]:[id number] date: 1990 Sex: F Assigned Patient Location: [facility] Current Patient Location: [facility] Accession/Order Number: [id number] Exam Date: 10/23/2024 20:48 Report Date: 10/23/2024 [...] 10/23/2024 8:53 PM Dictation Location: [place] [address] Electronically authenticated by: [id number] Y Date: 10/23/2024 20:53 Dictated By: Choco Ruiz M.D. Signed By: 10/23/242055 DD/ 52 TD/TT: Environmental Scientist: [facility] Radiology Study observation (narrative) [facility] US OB CERVICAL LENGTHOrdered By: Radiologist Radiology on 10-23-2024 [facility] Healthcar e Work Phone: RECURRENT VAGINITIS (HTRX)on 10-18-2024 ATOPOBIUM VAGINAE 18.848 Abnormal [facility] althcare ATOPOBIUM VAGINAE Detected Abnormal Located within [facility] BVAB 2,3 (BACTERIAL VAGINOSIS ASSOCIATED BACTERIA 2, 3); MOBILUNCUS SPP 11.[address] [facility] BVAB 2,3 (BACTERIAL VAGINOSIS ASSOCIATED BACTERIA 2, 3); MOBILUNCUS SPP Detected Abnormal [facility] Healthcare SABRINA ALBICANS, PARAPSILOSIS, TROPICALIS [address] [facility] SABRINA ALBICANS, PARAPSILOSIS, TROPICALIS Not detected [facility] SABRINA GLABRATA 0 [facility] Hea lthcare SABRINA GLABRATA Not detected [facility] SABRINA KRUSEI 0 [facility] SABRINA KRUSEI Not detected [facility] ltare CHLAMYDIA TRACHOMATIS 0 [facility] CHLAMYDIA TRACHOMATIS Not detected [facility] ERMB, C; MEFA 19.21 Abnormal [facility] Health care ERMB, C; MEFA Detected Abnormal [facility] Health care GARDNERELLA VAGINALIS 18.356 Abnormal [facility] S Healthcare GARDNERELLA VAGINALIS Detected Abnormal [facility] Healthcare Interpretation and review of laboratory results Abnormal [facility] MEGASPHAERA (TYPES 1, 2) 0 [facility] MEGASPHAERA (TYPES 1, 2) Not detected [facility] MYCOPLASMA GENITALIUM 0 [facility] MYCOPLASMA GENITALIUM Not detected [facility] NEISSERIA GONORRHOEAE 0 [facility] NEISSERIA GONORRHOEAE Not detected [facility] TET B, TET M 17.573 Abnormal [facility] are TET B, TET M Detected Abnormal [facility] are TRICHOMONAS VAGINALIS 0 [facility] TRICHOMONAS VAGINALIS Not detected [facility] Healthcar e Urinalysis macro (dipstick) panel (U)on 10-17-2024 Bilirubin, UA Negative Negative - 4(70) +++ mg/dL [facility] Blood, UA Negative Negative - 50 Fahad/mcL [facility] Healthcare Clarity, UA Clear [facility] Color, UA Yellow [facility] Glucose, UA Negative Negative - 1999(110) ++++ mg/dL [facility] Interpretation and review of laboratory results Normal [facility] Ketones, UA Negative Negative - 160(16) ++++ mg/dL [facility] Leukocytes, UA Negative Negative - 500+++ Carlos/mcL [facility] Nitrite, UA Negative Negative - Positive [facility] pH, UA 6 5 - 9 [facility] Protein, UA Negative Negative - 1999(20) ++++ mg/dL [facility] Spec Grav, UA 1.02 1 - 1.[address] [facility] care Urobilinogen, UA 0.2 0.2 - 12 mg/dL [facility] Urinalysis macro (dipstick) panel (U)on 09-20-2024 Bilirubin, UA Negative Negative - 4(70) +++ mg/dL [facility] Blood, UA Positive Negative - 50 Fahad/mcL [facility] Healthcare Comment on above: trace Clarity, UA Clear [facility] Color, UA Yellow [facility] Healthcar e Glucose, UA Negative Negative - 1999(110) ++++ mg/dL [facility] Interpretation and review of laboratory results Normal [facility] Ketones, UA Negative Negative - 160(16) ++++ mg/dL [facility] Leukocytes, UA Positive Negative - 500+++ Carlos/mcL [facility] Healthcare Comment on above: small Nitrite, UA Negative Negative - Positive [facility] pH, UA 6.5 5 - 9 [facility] Protein, UA Negative Negative - 1999(20) ++++ mg/dL [facility] Spec Grav, UA 1.01 1 - 1.03 [facility] Urobilinogen, UA 0.2 0.2 - 12 mg/dL [facility] US OB 14+ WEEKS ANATOMY [...] II, MD, PHD at 21-Aug-2024 08:11:05 AM [facility] Normal Not Available Comment on above: Order Comment: US OB ANATOMY SINGLE W US OB CERVICAL LENGTH Estimated Date of Delivery: 01/06/25 Gestational Age as of 07/16/2024: 15w1d Urinalysis macro (dipstick) panel (U)on 06-14-2024 Bilirubin, UA Negative Negative - 4(70) +++ mg/dL [facility] Blood, UA Positive Negative - 50 Fahad/mcL [facility] Comment on above: trace-intact Clarity, UA Clear [facility] [employer] re Color, UA Yellow [facility] [employer] Glucose, UA Negative Negative - 1999(110) ++++ mg/dL [facility] Interpretation and review of laboratory results Abnormal [facility] Ketones, UA Negative Negative - 160(16) ++++ mg/dL [facility] Leukocytes, UA Positive Negative - 500+++ Carlos/mcL [facility] Comment on above: large Nitrite, UA Negative Negative - Positive [facility] pH, UA 6.5 5 - 9 [facility] [employer] Protein, UA Negative Negative - 1999(20) ++++ mg/dL [facility] Spec Grav, UA 1.02 1 - 1.03 [facility] Urobilinogen, UA 2.0 0.2 - 12 mg/dL [facility] e BOX TESTon 06-12-2024 BOX TEST SENT OUT [facility] althcare BOX1 [employer] [facility] [employer] BOX2 06/12/2024 [facility]OX [facility] [employer] PAP IG, APT HPV RFX 16/18,45 on 06-05-2024 HPV APTIMA Positive Abnormal Negative [facility] [employer] Comment on above: This nucleic acid am plification test detects fourteen high- risk HPV types (16,18,31,33,35,39,45,51,52,56,58,59,66,68) without differentiation. Interpretation and review of laboratory results Abnormal [facility] PAP IG (IMAGE GUIDED) Note . [facility] Comment on above: TESTS RESULT FLAG UN ITS REF RANGE LAB Clinician Provided Cytology Information Source.............Cervix Other.............. No. of containers..01 ThinPrep Vial DIAGNOSIS: 01 NEGATIVE FOR INTRAEPITHELIAL LESION OR MALIGNANCY. Specimen adequacy: 01 Satisfactory for evaluation. Endocervical and/or squamous metaplastic cells (endocervical component) are present. Performed by: Carmen Jones, Flaker Tender (ASC) . 01 Note: Note 01 The Pap [...] <-Panic Low,>-Panic High,A-Abnormal,AA-Critical Abnormal Performed at: [address] [id number] Rhina Armstrong MD, [facility] HPV GENOTYPE 16 Negative Negative [facility] HPV GENOTYPE 18,45 Negative Negative NO [facility] Comment on above: Performed at: WB - [facility] [address] [id number] Bar Pilot: Rhina Armstrong MD, Phone: [phone] Performed at: =G - [facility] [address] [id number] Bar Pilot: Rhina Armstrong MD, Phone: [phone] SPAT[facility]A-ALONE CERVIX [facility] HCG ( test) Ql (U)o n 05-31-2024 Interpretation and review of laboratory results Abnormal [facility] Healthcare Preg Test, Ur Positive Negative [facility] US OB TRANSVAGINALon 025 [place] [address] Ultrasound Report Signed Patient: POOJA VALENCIA MR#: [id number] : 1990 Acct:[id number] Age/Sex: 33 / F ADM Date: 05/31/24 Loc: US Attending Dr: Anali Sales D.O. Ordering Physician: Anali Sales D.O. Date of Service: 05/31/24 Procedure(s): US OB transvaginal Accession Number(s): [id number] cc: Anali Sales D.O.; RAKESH SHEPHERD [place] [id number] Patient Name: POOJA VALENCIA MRN: [id number] date: 1990 Sex: F Assigned Patient Location: US Current Patient Location: US Accession/Order Number: [id number] Exam Date: 05/31/2024 14:04 Report Date: 05/31/2024 [...] Mckenzie Alvarez M.D.05/31/2024 2:09 PM Dictation Location: [place] [address] Electronically authenticated by: [id number] Y Date: 05/31/2024 14:09 Dictated By: Mckenzie Alvarez M.D. Signed By: 05/31/24 1412 DD/ 1409 TD/TT: Environmental Scientist: [facility] Radiology, Radiologist, - 05/31/2024 [place] [address] Ultrasound Report Signed Patient: POOJA VALENCIA MR#: [id number] : 1990 Acct:[id number] Age/Sex: 33 / F ADM Date: 05/31/24 Loc: US Attending Dr: Anali Sales D.O. Ordering Physician: Anali Sales D.O. Date of Service: 05/31/24 Procedure(s): US OB transvaginal Accession Number(s): [id number] cc: Anali Sales D.O.; RAKESH SHEPHERD [place] [address] Patient Name: POOJA VALENCIA MRN: [facility]:[id number] date: 1990 Sex: F Assigned Patient Location: Current Patient Location: US Accession/Order Number: [id number] Exam Date: 05/31/2024 14:04 Report Date: 05/31/2024 [...] Mckenzie Alvarez M.D.05/31/2024 2:09 PM Dictation Location: [place] [address] Electronically authenticated by: [id number] Y Date: 05/31/2024 14:09 Dictated By: Mckenzie Alvarez M.D. Signed By: 05/31/24 1412 DD/ 1409 TD/TT: Environmental Scientist: [facility] Radiology Study observation (narrative) [facility] US OB TRANSVAGINALOrdered By : Radiologist Radiology on 05-31-2024 [facility] [employer] Work Phone: Urinalysis macro (dipstick) panel (U)on 05-31-2024 Bilirubin, UA Negative Negative - 4(70) +++ mg/dL [facility] Blood, UA Negative Negative - 50 Fahad/mcL [facility] Clarity, UA Clear [facility] re Color, UA Yellow [facility] e Glucose, UA Negative Negative - 2000(110) ++++ mg/dL [facility] Interpretation and review of laboratory results Abnormal [facility] Ketones, UA Negative Negative - 160(16) ++++ mg/dL [facility] Leukocytes, UA Moderate Negative - 500+++ Carlos/mcL [facility] Nitrite, UA Negative Negative - Positive [facility] pH, UA 7 5 - 9 [facility] e Protein, UA Negative Negative - 2000(20) ++++ mg/dL [facility] Spec Grav, UA 1.02 1 - 1.03 [facility] Urobilinogen, UA 1.0 0.2 - 12 mg/dL [facility] Health[facility] PREG QUANT HCGon 025 HCG QUANTITATIVE [address] mIU/mL [facility] Comment on above: 5-50 0.2-1 WEEK 50-500 1-2 WEEKS 100-5,000 2-3 WEEKS 500-10,000 3-4 WEEKS 1,000-50,000 4-5 WEEKS 10,000-100,000 5-6 WEEKS 15,000-200,000 6-8 WEEKS 10,000-100,000 2-3 [facility] [facility] PREG QUANT HCGon -13-2 024 HCG QUANTITATIVE 6 mIU/mL [facility] Comment on above: 5-50 0.2-1 WEEK 50-500 1-2 WEEKS 100-5,000 2-3 WEEKS 500-10,000 3-4 WEEKS 1,000-50,000 4-5 WEEKS 10,000-100,000 5-6 WEEKS 15,000-200,000 6-8 WEEKS 10,000-100,000 2-3 MONTHS [facility] PREG QUANT HCGon -24-2 024 HCG QUANTITATIVE 381 mIU/mL [facility] Comment on above: 5-50 0.2-1 WEEK 50-500 1-2 WEEKS 100-5,000 2-3 WEEKS 500-10,000 3-4 WEEKS 1,000-50,000 4-5 WEEKS 10,000-100,000 5-6 WEEKS 15,000-200,000 6-8 WEEKS 10,000-100,000 2-3 MONTHS [facility] PREG QUANT HCGon -18-2 024 HCG QUANTITATIVE 1255 mIU/mL [facility] Comment on above: 5-50 0.2-1 WEEK 50-500 1-2 WEEKS 100-5,000 2-3 WEEKS 500-10,000 3-4 WEEKS 1,000-50,000 4-5 WEEKS 10,000-100,000 5-6 WEEKS 15,000-200,000 6-8 WEEKS 10,000-100,000 2-3 [facility] HCGon 10-16-2 024 HCG QUANTITATIVE 1395 mIU/mL [facility] Comment on above: 5-50 0.2-1 WEEK 50-500 1-2 WEEKS 100-5,000 2-3 WEEKS 500-10,000 3-4 WEEKS 1,000-50,000 4-5 WEEKS 10,000-100,000 5-6 WEEKS 15,000-200,000 6-8 WEEKS 10,000-100,000 2-3 MONTHS [facility] PREG QUANT HCGon 024 HCG QUANTITATIVE 1276 mIU/mL [facility] Comment on above: 5-50 0.2-1 WEEK 50-500 1-2 WEEKS 100-5,000 2-3 WEEKS 500-10,000 3-4 WEEKS 1,000-50,000 4-5 WEEKS 10,000-100,000 5-6 WEEKS 15,000-200,000 6-8 WEEKS 10,000-100,000 2-3 MONTHS [facility] CBC with Auto Differentialon 01-20-2024 Basophils (Bld) [#/Vol] 0.00 10*3/uL [facility] Basophils/100 WBC (Bld) 0 % 0 - 2 % B on [facility] Eosinophils (Bld) [#/Vol] 0.20 10*3/uL [facility] g/dL 31 - 37 g/dL [facility] MCV (RBC) [Entitic vol] 94.9 fL 80 - 100 fL [facility] Monocytes/100 WBC (Bld) 10 % High 1 - 7 % B [facility] Monocytes/100 WBC (Bld) 0.50 % [facility] Neutrophils/100 WBC (Bld) 53 % [...] WBC other (Bld) [#/Vol] 5.0 B on [facility] CBC with Diffon 01-20-2024 Abs. Basophil 0.00 k/uL Normal 0.0-0.2 [facility] Comment on above: Performed By: #### P T, CP, HCG, CDP #### [facility] [place] [facility] [address] [place] [address] Bar Pilot: Nehemiah Ku DO Abs.Neutrophil (Seg) 2.60 k/uL Normal 1.3-9.1 [facility] Comment on above: Performed By: #### P T, CP, HCG, CDP #### [facility] [place] [facility] [address] [place] [address] Bar Pilot: Nehemiah Ku DO Basophils/100 WBC (Bld) 0 % Normal 0-2 [facility] Comment on above: Performed By: #### P T, CP, HCG, CDP #### [facility] [place] [facility] [place] [address] Bar Pilot: Nehemiah Ku DO Eosinophils (Bld) [#/Vol] 0.20 10*3/uL Normal 0.0-0.4 [facility] Comment on above: Performed By: #### P T, CP, HCG, CDP #### [facility] [place] [facility] [address] [place] [address] Bar Pilot: Nehemiah Ku DO Eosinophils/100 WBC (Bld) 4 % Normal 0-4 [facility] Comment on above: Performed By: #### P T, CP, HCG, CDP #### [facility] [place] [facility] [address] [place] [address] Bar Pilot: Nehemiah Ku DO Erythrocyte distribution width (RBC) [Ratio] 12.4 % Normal 11.5-14.9 [facility] Comment on above: Performed By: #### P T, CP, HCG, CDP #### [facility] [place] [facility] [address] [place] [address] Bar Pilot: Nehemiah Ku DO Hematocrit (Bld) [Volume fraction] 35.4 % Low 36-46 [facility] Comment on above: Performed By: #### P T, CP, HCG, CDP #### [facility] [place] [facility] [place] [address] Bar Pilot: Nehemiah Ku DO Hemoglobin (Bld) [Mass/Vol] 12.1 g/dL Normal 12.0-16.0 [facility] Comment on above: Performed By: #### P T, CP, HCG, CDP #### [facility] [place] [facility] [address] [facility] [place] [address] Bar Pilot: Nehemiah Ku DO Lymphocytes (Bld) [#/Vol] 1.70 10*3/uL Normal 1.0-4.8 [facility] Comment on above: Performed By: #### P T, CP, HCG, CDP #### [facility] [place] [facility] [place] [address] Bar Pilot: Nehemiah Ku DO Lymphocytes/100 WBC (Bld) 33 % Normal 24-44 [facility] Comment on above: Performed By: #### P T, CP, HCG, CDP #### [facility] [place] [facility] [place] [address] Bar Pilot: Nehemiah Ku DO MCH (RBC) [Entitic mass] 32.5 pg Normal 26-34 [facility] Comment on above: Performed By: #### P T, CP, HCG, CDP #### [facility] [place] [facility] [address] [place], [place] [address]ast[place] [address] Bar Pilot: Nehemiah Ku DO MCHC (RBC) [Mass/Vol] 34.3 g/dL Normal 31-37 [facility] Comment on above: Performed By: #### P T, CP, HCG, CDP #### [facility] [place] [facility] [address] [place] [address] Bar Pilot: Nehemiah Ku DO MCV (RBC) [Entitic vol] 94.9 fL Normal 80-100 [facility] Comment on above: Performed By: #### P T, CP, HCG, CDP #### [facility] [place] [facility] [address] [place] [address] Bar Pilot: Nehemiah Ku DO Monocytes (Bld) [#/Vol] 0.50 10*3/uL Normal 0.1-1.3 [facility] Comment on above: Performed By: #### P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 CLINICAL RECORDS. [facility] [employer] [facility]. provides no warranty or guarantee of the accuracy or completeness of information in this document.
--- NOTE | 2025-01-02 16:09 | PC.NURSE ---
Aston and 6 day old Samara arrive for follow up. Sallie states is exhausted as baby will not sleep in bassinet, only will sleep when being held. Baby sleeps during the day, 3-4 hours between feeds and cluster feeds during the night. Discussed ways to help baby feed more frequently during the day and sleep longer stretch during the night. Sallie states milk is in and baby latching pretty well Nipples tender and does have slight scabbing on tips. VSS and assessment WNL. No complaints for self. Baby Samara slight jaundice and pink. VSS and assessment WNL. Diaper wet and small yellow stool. Parents report 6 yellow stools and 8 wets daily. Bili 10.5 transcutaneous. NB to breast, mom uses cradle hold and baby struggles with latch. Shown easier positioning and immediate latch without pain. Mom states wow, that feels so much better Baby feeds for 17 minutes and releases latch . Burped well and to car seat. All questions answered for parents. Home ambulatory at this time. Aware of [facility] group and to call as needed.
[2025-01-02 16:19] VITALS: BP 122/82; PULSE 60; TEMP 36.8; O2SAT 96
== END 2025-01-02 16:20 | disposition home or self-care (01) ==
LOC: FBCO 14:40
PROVIDERS: PCP Internal Medicine; Visit Provider Obstetrics & Gynecology
DX: Z39.1 Encounter for care and examination of lactating mother (principal)